=== PATIENT | male | born 1955 | race Caucasian/White ===

== ENCOUNTER 2016-11-11 17:11 | Inpatient (IN) ==
[2016-11-11] MEDS ORDERED: Vancomycin 1,000 MG in D5% in Water 250 ML IV ONE (18:10)
[2016-11-11] MEDS ORDERED: Ondansetron 4 MG/2 ML VIAL IV ONE (18:10)
[2016-11-11] MEDS ORDERED: *HR* Morphine 2 MG/ML SYRINGE IV ONE (18:10)
[2016-11-11] MEDS ORDERED: Piperacillin/Tazobactam 3.375 GM in D5% in Water (Mini-Bag+) 100 ML IVPB ONE (18:10)
--- NOTE | 2016-11-11 18:18 | Emergency Department Note ---
Disposition Clinical Impression: Cellulitis of right lower leg, Septic shock, Hyponatremia Cellulitis Qualifiers: Site of cellulitis: extremity Site of cellulitis of extremity: lower extremity Laterality: right Qualified Code(s): L03.115 - Cellulitis of right lower limb Disposition: Admitted As Inpatient Condition: Fair Referrals: NO,PCP [Non-Partnered Physician] - Forms: ED Satisfaction Letter Time of Disposition: 21:19 General Adult HPI - General Chief complaint: ED Skin/Abscess/Foreign Body Stated complaint: lesions on legs draining Time Seen by Provider: 11/11/16 17:51 Source: patient Limitations: no limitations Nursing Notes Reviewed: Yes Vital Signs Reviewed: Yes - History of Present Illness HPI Narrative: A sent to the emergency department with a chief complaint of right leg infection. States he went to urgent care on Wednesday and was started on . Getting worse. Fever. Painful. Denies injury. Location: right, lower extremity Radiation: non-radiation Pain Severity: severe Pain Scale: 10 Quality: stabbing Consistency: constant Improves with: nothing Worsens with: nothing Treatments Prior to Arrival: other (Bactrim) - Related Data Home Medications Medication Instructions Recorded Confirmed Gabapentin [Gralise] 600 mg PO TID 08/01/15 06/15/16 Metformin [Glucophage] 1,000 mg PO BIDWM 08/01/15 06/15/16 Furosemide [Lasix] 10 mg PO BID 12/17/15 06/15/16 Amitriptyline 11/09/16 Benztropine 11/09/16 Diazepam 11/09/16 GlipiZIDE 11/09/16 HydrOXYzine 11/09/16 Lisinopril 11/09/16 Oxcarbazepine 11/09/16 Potassium Chloride 11/09/16 Simvastatin 11/09/16 11/09/16 Previous Rx's Medication Instructions Recorded Sulfamethoxazole/Trimeth DS 1 each PO BID #20 tablet 11/09/16 [Bactrim DS] Allergies Allergy/AdvReac Type Severity Reaction Status Date / Time aspirin Allergy Rash Verified 10/22/16 20:35 codeine Allergy Rash Verified 10/22/16 20:35 iodine Allergy See Verified 10/22/16 20:35 Comments All systems ED: reviewed and negative except as stated. Constitutional: Reports: fever, chills Cardiovascular: Denies: chest pain Respiratory: Denies: dyspnea Gastrointestinal: Denies: abdominal pain, vomiting, diarrhea Neurological: Denies: headache Past Medical History - Past Medical History Attestation: Yes The following information was validated with the patient. Source: patient Medical history: Reports: non-contributory Surgical history: Reports: appendectomy, cataract, other Psychiatric history: Reports: anxiety, bipolar, depression, PTSD, schizophrenia - Social History Smoking Status: Current every day smoker Smokeless Tobacco Status: No Alcohol use: Reports: none Drug use: Reports: none Physical Exam On examination the patient is disheveled. He is obese. He has dirt caked to the bottom of his right foot. His right leg is diffusely edematous. It is red. There is large pus filled blisters. - General Limitations: no limitations General appearance: alert - Head Head exam: atraumatic, normocephalic - Eye Eye exam: Present: normal appearance - ENT ENT exam: normal oropharynx - Neck Neck exam: Present: normal inspection - Chest Chest inspection: Present: normal inspection - Respiratory Respiratory exam: Present: normal lung sounds bilaterally - Cardiovascular Cardiovascular exam: Present: normal rhythm, tachycardia, normal heart sounds - Abdominal Exam Abdominal exam: Present: soft, Non-Tender - Neurological Exam Neurological exam: Present: alert, oriented X3, CN II-XII intact - Psychiatric Psychiatric exam: Present: normal affect, normal mood - Skin Skin exam: Present: warm, dry Course Course Narrative: Patient with a fever and right leg cellulitis. Sepsis bundle and likely admission. - Reevaluation(s) Reevaluation #1: There is a saline ordered. Concern for fluid overload with the patient's pedal edema and renal insufficiency. Time: 19:33 Reevaluation #2: Stilll await Lactate as lab has still has not drawn lactic acid that was ordered 3 hours ago. Time: 21:14 - Consultations Consultation #1: Nelly accepts. Aware lactate is pending. requests tele Time: 21:19 Vital Signs Temperature 100.6 F H 11/11/16 17:42 Pulse Rate 128 11/11/16 17:42 Respiratory Rate 24 11/11/16 17:42 Blood Pressure 113/70 11/11/16 17:42 O2 Sat by Pulse Oximetry 93 L 11/11/16 17:42 Temperature 100.6 F H 11/11/16 17:42 Pulse Rate 127 11/11/16 19:29 Respiratory Rate 22 11/11/16 19:29 Blood Pressure 128/76 11/11/16 19:29 O2 Sat by Pulse Oximetry 93 L 11/11/16 19:29 Oxygen Delivery Oxygen Delivery Room Air Medical Decision Making - Lab Data Result diagrams: 11/11/16 18:34 11/11/16 18:34 Lab Results 11/11/16 11/11/16 11/11/16 Range/Units 18:34 18:34 18:34 WBC 17.1 H (4.3-11.1) K/mcL RBC 4.00 L (4.19-5.50) M/mcL Hgb 11.6 L (12.9-16.9) g/dL Hct 34.1 L (37.5-50.1) % MCV 85.3 (83.0-100.0) fL MCH 29.0 (28.0-33.3) pg MCHC 34.0 (31.6-35.5) g/dL RDW 14.3 (11.5-14.5) % Plt Count 290 (140-400) K/mcL MPV 10.3 (9.4-12.4) fL Immature Gran % 1.7 (0-4) % Seg Neutrophils % 79.9 % Lymphocytes % 8.9 % Monocytes % 8.8 % Eosinophils % 0.4 % Basophils % 0.3 % Neutrophils # 13.6 H (1.6-8.9) K/mcL Lymphocytes # 1.5 (0.6-4.6) K/mcL Monocytes # 1.5 H (0.0-1.3) K/mcL Eosinophils # 0.1 (0.0-0.6) K/mcL Basophils # 0.1 (0.0-0.2) K/mcL PT 13.0 H (9.4-12.1) Seconds INR 1.2 APTT 27.5 (26.0-36.0) Seconds Sodium 126 L (136-145) mEq/L Potassium 4.0 (3.5-4.5) mEq/L Chloride 89 L (98-109) mEq/L Carbon Dioxide 25 (19-29) mEq/L BUN 37 H (8-26) mg/dL Creatinine 1.93 H (0.72-1.25) mg/dL Est GFR ( Amer) 43 L (> 60) Est GFR (Non-Af Amer) 36 L (> 60) BUN/Creatinine Ratio 19 (6-26) Glucose 372 H (70-99) mg/dL Calculated Osmolality 286 (280-300) Lactic Acid (0.5-2.2) mmol/L Calcium 8.7 (8.6-10.8) mg/dL Phosphorus 1.5 L (2.3-4.7) mg/dL Magnesium 1.4 L (1.6-2.6) mg/dL Total Bilirubin 1.7 H (0.2-1.2) mg/dL Direct Bilirubin 1.2 H (0.0-0.5) mg/dL Indirect Bilirubin 0.5 (0.0-1.2) mg/dL AST 71 H (5-34) Units/L ALT 67 H (0-55) Units/L Alkaline Phosphatase 233 H (38-126) Units/L Troponin I (0-0.03) ng/mL Serum Total Protein 7.3 (6.0-8.3) g/dL Albumin 2.7 L (3.5-5.0) g/dL Globulin 4.6 H (2.4-3.5) g/dL Albumin/Globulin Ratio 0.6 L (1.1-2.2) 11/11/16 11/11/16 Range/Units 18:34 20:04 WBC (4.3-11.1) K/mcL RBC (4.19-5.50) M/mcL Hgb (12.9-16.9) g/dL Hct (37.5-50.1) % MCV (83.0-100.0) fL MCH (28.0-33.3) pg MCHC (31.6-35.5) g/dL RDW (11.5-14.5) % Plt Count (140-400) K/mcL MPV (9.4-12.4) fL Immature Gran % (0-4) % Seg Neutrophils % % Lymphocytes % % Monocytes % % Eosinophils % % Basophils % % Neutrophils # (1.6-8.9) K/mcL Lymphocytes # (0.6-4.6) K/mcL Monocytes # (0.0-1.3) K/mcL Eosinophils # (0.0-0.6) K/mcL Basophils # (0.0-0.2) K/mcL PT (9.4-12.1) Seconds INR APTT (26.0-36.0) Seconds Sodium (136-145) mEq/L Potassium (3.5-4.5) mEq/L Chloride (98-109) mEq/L Carbon Dioxide (19-29) mEq/L BUN (8-26) mg/dL Creatinine (0.72-1.25) mg/dL Est GFR ( Amer) (> 60) Est GFR (Non-Af Amer) (> 60) BUN/Creatinine Ratio (6-26) Glucose (70-99) mg/dL Calculated Osmolality (280-300) Lactic Acid 1.2 (0.5-2.2) mmol/L Calcium (8.6-10.8) mg/dL Phosphorus (2.3-4.7) mg/dL Magnesium (1.6-2.6) mg/dL Total Bilirubin (0.2-1.2) mg/dL Direct Bilirubin (0.0-0.5) mg/dL Indirect Bilirubin (0.0-1.2) mg/dL AST (5-34) Units/L ALT (0-55) Units/L Alkaline Phosphatase (38-126) Units/L Troponin I 0.02 (0-0.03) ng/mL Serum Total Protein (6.0-8.3) g/dL Albumin (3.5-5.0) g/dL Globulin (2.4-3.5) g/dL Albumin/Globulin Ratio (1.1-2.2) - EKG Data EKG #1 EKG attestation: Yes I reviewed and interpreted this EKG. EKG results narrative: Sinus tach at 122. Nonspecific ST changes likely secondary to rate. Unchanged from EKG 2015. Normal axis. Normal ST segments. Normal QRS. Critical Care Time Critical Care Time: Yes Total Critical Care Time: 40 Attestation: Critical care performed: Time is exclusive of separately billable procedures. Time includes: direct patient care, patient reassessment, coordination of patient care, interpretation of data (laboratory data, radiology data, and respiratory data), review of patient's medical records, medical consultation and documentation of patient care. Procedures included in critical care time: Procedures excluded from critical care time:
[2016-11-11 18:46] LABS: Basophils # 0.1 K/mcL (0.0-0.2); Basophils % 0.3 %; Eosinophils # 0.1 K/mcL (0.0-0.6); Eosinophils % 0.4 %; Hematocrit 34.1 % (37.5-50.1); Hemoglobin 11.6 g/dL (12.9-16.9); Immature Granulocytes % 1.7 % (0-4); Lymphocytes # 1.5 K/mcL (0.6-4.6); Lymphocytes % 8.9 %; Mean Corpuscular Volume 85.3 fL (83.0-100.0); Mean Platelet Volume 10.3 fL (9.4-12.4); Monocytes # 1.5 K/mcL (0.0-1.3); Monocytes % 8.8 %; Neutrophils # 13.6 K/mcL (1.6-8.9); Platelet Count 290 K/mcL (140-400); Red Cell Distribution Width 14.3 % (11.5-14.5); Segmented Neutrophils % 79.9 %
[2016-11-11 18:51] LABS: INR 1.2
[2016-11-11 18:54] LABS: Activated Partial Thrombo Time 27.5 Seconds (26.0-36.0)
[2016-11-11 19:00] LABS: Albumin 2.7 g/dL (3.5-5.0); Albumin/Globulin Ratio 0.6 (1.1-2.2); Bilirubin,Direct 1.2 mg/dL (0.0-0.5); Bilirubin,Indirect 0.5 mg/dL (0.0-1.2); Bilirubin,Total 1.7 mg/dL (0.2-1.2); Calcium 8.7 mg/dL (8.6-10.8); Globulin 4.6 g/dL (2.4-3.5); Magnesium 1.4 mg/dL (1.6-2.6); Phosphorous 1.5 mg/dL (2.3-4.7); Total Protein 7.3 g/dL (6.0-8.3)
[2016-11-11] MEDS ORDERED: 0.9 % Sodium Chloride 2,000 ML IV ONE (19:33)
[2016-11-11] MEDS ORDERED: Insulin Human Regular 10 UNIT in 0.9 % Sodium Chloride 10 ML IV ONE (19:34)
[2016-11-11] MEDS ORDERED: Vancomycin 2,000 MG in D5% in Water 250 ML IVPB SCH (23:45)
[2016-11-11] MEDS ORDERED: *HR* Promethazine 25 MG/ML VIAL IVP PRN (23:57)
[2016-11-11] MEDS ORDERED: Acetaminophen 325 MG TABLET PO PRN (23:57)
[2016-11-11] MEDS ORDERED: Benzonatate 100 MG CAPSULE PO PRN (23:57)
[2016-11-11] MEDS ORDERED: *HR* Dextrose 50 % in Water (Syg) 50 ML SYRINGE IVP PRN (23:57)
[2016-11-11] MEDS ORDERED: Naloxone 0.4 MG/ML INJ IVP PRN (23:57)
[2016-11-11] MEDS ORDERED: *HR* HYDROmorphone (PF) 1 MG/ML SYRINGE IVP PRN (23:57)
[2016-11-11] MEDS ORDERED: Pantoprazole 40 MG VIAL IVP STA (23:57)
[2016-11-11] MEDS ORDERED: Dextrose Gel 15 GM PO PRN ×2 (23:57)
[2016-11-11] MEDS ORDERED: D5% in Water 1,000 ML IV PRN (23:57)
[2016-11-12] MEDS ORDERED: Piperacillin/Tazobactam 3.375 GM in D5% in Water (Mini-Bag+) 100 ML IVPB SCH
[2016-11-12] MEDS ORDERED: Magnesium Sulfate 2 GM in D5% in Water 100 ML IVPB ONE (00:03)
--- NOTE | 2016-11-12 00:11 | Internal Med History&Physical ---
Date of Encounter: 11/11/16 Time of Encounter: 23:00 Assessment and Plan (1) Cellulitis of both lower extremities Status: Acute . (2) SIRS due to infectious process with organ dysfunction Status: Acute . (3) Sepsis affecting skin Status: Acute . (4) Morbid obesity with BMI of 40.0-44.9, adult Status: Chronic . (5) Acute and chronic respiratory failure with hypoxia Status: Acute . (6) HEATHER (acute kidney injury) Status: Acute . (7) Hyponatremia with decreased serum osmolality Status: Acute . (8) Acute kidney injury superimposed on CKD Status: Acute . (9) Acute exacerbation of chronic obstructive pulmonary disease (COPD) Status: Acute . 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 Qualifiers: Diabetes mellitus residential insulin use: unspecified manager long term care insulin use status Qualified Code(s): E11.621 - Type 2 diabetes mellitus with foot ulcer; L97.509 - Non-pressure chronic ulcer of other part of unspecified foot with unspecified severity (11) DM type 2 with diabetic peripheral neuropathy Status: Chronic . (12) Physical debility Status: Acute . (13) At risk for abnormal blood glucose level Status: Acute . (14) At risk for accident in home Status: Acute . (15) At risk for acid-base imbalance Status: Acute . (16) At risk for activity intolerance Status: Acute . (17) At risk for acute confusion Status: Acute . (18) At risk for acute ischemic cardiac event Status: Acute . (19) Transaminitis Status: Acute . (20) Hypoalbuminemia due to protein-calorie malnutrition Status: Chronic . (21) Diabetes mellitus with nephropathy Status: Chronic . (22) Urinary tract infection Status: Inactive Qualifiers: Urinary tract infection type: acute cystitis Hematuria presence: without hematuria Qualified Code(s): N30.00 - Acute cystitis without hematuria Internal Medicine - H&P: HPI Chief complaint: Pain, swelling and drainage of legs Admitted From: Emergency Dept Plans for Post Hospital Care: Home History of present illness: Mr. Cormier is a 61 year old mal. Workup and treatments will proceed comprehensively. e patient is admitted with complaints of lesions developing on his legs that are draining associated with swelling and discomfort. Symptoms appear worse in the last 5 days. Right leg affected greater than left. Concerned for infection raised. Radiographic studies confirmed extensive subcutaneous fat stranding and skin thickening compatible with cellulitis versus lymphedema. No drainable fluid collection was seen. No acute osseous abnormalities were seen. The patient is admitted at this time after failure of outpatient therapy with Bactrim for intravenous antibiotic therapy. Workup and treatment will proceed comprehensively. Past Med Surg Social Fam HX - Past Medical History Source: old records reviewed Medical history: arthritis, COPD, diabetes, hyperlipidemia, hypertension, osteoporosis, renal disease, venous stasis, other Psychiatric history: anxiety, bipolar, depression, PTSD, schizophrenia - Past Surgical History Surgical History: appendectomy, cataract, other - Social History Smoking Status: Current every day smoker Smokeless Tobacco Status: No Alcohol use: none Drug use: none Occupational status: unemployed Current living situation: With Family Activity Level: Uses cane/walker, Bed bound, Mostly sedentary Recent Out of Country Travel Within the Last 8 Weeks: No Exposure or Possible Exposure to Illness During Travel: No Internal Medicine - H&P: Meds Metformin [Glucophage] 1,000 mg PO BIDWM 08/01/15 [History] Furosemide [Lasix] 20 mg PO BID 12/17/15 [History] Amitriptyline HCl 100 mg PO HS 11/09/16 [History] Benztropine Mesylate 2 mg PO BID 11/09/16 [History] HydrOXYzine Pamoate 25 mg PO BID PRN 11/09/16 [History] Lisinopril 2.5 mg PO DAILY 11/09/16 [History] Potassium Chloride [K-Tab ER] 10 meq PO BID 11/09/16 [History] Simvastatin [Zocor] 20 mg PO HS 11/09/16 [History] Gabapentin [Neurontin] 1,600 mg PO BID 11/12/16 [History] Gabapentin [Neurontin] 400 mg PO 1300 11/12/16 [History] Pantoprazole Sodium [Protonix] 40 mg PO DAILY 11/12/16 [History] Diazepam [Valium] 5 mg PO TID #30 tablet 11/14/16 [Rx] Metoprolol XL (24 HR) Succ [Toprol Xl] 25 mg PO DAILY #30 tab.er.24h 11/14/16 [ Rx] Oxcarbazepine 300 mg PO BID #60 tablet 11/14/16 [Rx] Diazepam [Valium] 5 mg PO TID #10 tablet 11/24/16 [Rx] OxyCODONE Immed Rel [Roxicodone 5 MG] 10 mg PO Q6HR PRN #10 tablet 11/24/16 [Rx] Allergies aspirin Allergy (Verified 10/22/16 20:35) Rash codeine Allergy (Verified 10/22/16 20:35) Rash iodine Allergy (Verified 10/22/16 20:35) See Comments All Systems PM: A 10-system review of systems was performed and is negative for pertinent findings except as documented above in the HPI. - Constitutional Constitutional: as per HPI, malaise, weakness, no chills, no fever(s), no night sweats - EENT Eyes: as per HPI, no change in vision, no discharge, no pain, no photophobia Ears: as per HPI, no ear discharge, no ear pain, no tinnitus Nose, mouth and throat: as per HPI, no dysphagia, no nasal discharge, no neck pain, no sore throat - Cardiovascular Cardiovascular ROS IM: as per HPI, dyspnea on exertion, edema, no chest pain, no diaphoresis, no dyspnea, no lightheadedness, no palpitations, no syncope - Respiratory Respiratory: as per HPI, cough, dyspnea, dyspnea on exertion, wheezing, chest congestion, no excessive phlegm production - Gastrointestinal Gastrointestinal: as per HPI, no abdominal pain, no diarrhea, no hematemesis, no hematochezia, no melena, no nausea, no vomiting - Genitourinary Genitourinary ROS male: as per HPI - Musculoskeletal Musculoskeletal ROS IM: as per HPI, no numbness, no tingling - Integumentary Integumentary IM: as per HPI, erythema, new lesions, non-healing lesions, rash, skin ulcer, other, no unusual bruising - Neurological Neurological ROS: as per HPI, abnormal gait, frequent falls, weakness, other, no confusion, no convulsions, no focal weakness, no numbness, no tingling, no tremor(s) - Psychiatric Psychiatric: as per HPI - Endocrine Endocrine IM: as per HPI - Hematologic/Lymphatic Hematologic/Lymphatic: as per HPI, no easy bruising - Allergic/Immunologic Allergic/Immunologic: as per HPI - Constitutional Vitals: Temp Pulse Resp BP Pulse Ox 100.6 F H 110 24 108/62 92 L 11/11/16 17:42 11/11/16 22:00 11/11/16 23:05 11/11/16 23:05 11/11/16 22:00 General appearance: Present: disheveled, mild distress, A&O X 3, morbidly obese , answers questions appropriately - Head Head exam: Present: atraumatic, normocephalic - Eye Eye exam: Present: EOMI, PERRL, conjuntiva pink, sclera anicteric Pupils: Present: normal accommodation, PERRL - ENT ENT exam: Present: mucous membranes moist, normal external ear exam, normal oropharynx - Neck Neck exam general surgery: Present: full ROM, supple, trachea midline. Absent: lymphadenopathy - Respiratory Respiratory exam: Present: accessory muscle use, chest wall tenderness, decreased breath sounds, rhonchi, wheezes. Absent: rales - Cardiovascular Cardiovascular exam: Present: distant heart sounds, RRR, +S1, +S2. Absent: diastolic murmur, gallop, rubs, systolic murmur - GI/Abdominal GI/Abdominal exam: Present: normal bowel sounds, soft, no peritoneal signs. Absent: distended, tenderness - Extremities Exam Extremities exam: Present: calf tenderness, full ROM, pedal edema, warm, radial pulses palpable and symetrical. Absent: cyanotic - Neurological Exam Neurological exam: Present: alert, altered, CN II-XII intact, motor sensory deficit, oriented X3, strengths equal and symetr throughout. Absent: pronater drift, facial droop, speech deficit - Psychiatric Psychiatric exam: Present: normal affect, normal mood - Skin Skin exam: Present: dry, erythema, excoriation, intact, rash, vesicles, warm Internal Med - H&P Results - Labs CBC & Chem 7: 11/14/16 06:42 11/14/16 06:42 Labs: Vital Signs Temp Pulse Resp BP Pulse Ox 11/11/16 23:05 24 108/62 11/11/16 22:00 110 20 104/62 92 L 11/11/16 21:30 118 24 94/70 93 L 11/11/16 21:19 92 L 11/11/16 21:00 129 24 101/68 92 L 11/11/16 20:30 132 24 120/76 92 L 11/11/16 19:30 125 20 116/74 92 L 11/11/16 19:29 127 22 128/76 93 L 11/11/16 17:42 100.6 F H 128 24 113/70 93 L Intake and Output 11/11/16 11/11/16 11/12/16 15:59 23:59 07:59 Intake Total 0 / 2260 Balance 226 / 0 Intake: IV Fluids 2260 / 2260 0.9 % Sodium Chloride 2, 2000 / 1999 000 ML @ 3750 mls/hr IV BOLUS ONE Rx#:[id number] HumuLIN R 10 UNIT In 10 / 10 Normal Saline Flush 10 ML @ 1212 mls/hr IV ONCE ONE Rx#:[id number] Vancocin 1,000 MG In 250 / 250 Dextrose 5% 250 ML @ 167 mls/hr IV ONCE ONE Rx#: [id number] Other: Weight 127.006 kg Blood Glucose* 378 Short CBC 11/11/16 Range/Units 18:34 WBC 17.1 H (4.3-11.1) K/mcL Hgb 11.6 L (12.9-16.9) g/dL Hct 34.1 L (37.5-50.1) % Plt Count 290 (140-400) K/mcL Neutrophils # 13.6 H (1.6-8.9) K/mcL BMP 11/11/16 Range/Units 18:34 Sodium 126 L (136-145) mEq/L Potassium 4.0 (3.5-4.5) mEq/L Chloride 89 L (98-109) mEq/L Carbon Dioxide 25 (19-29) mEq/L BUN 37 H (8-26) mg/dL Creatinine 1.93 H (0.72-1.25) mg/dL Glucose 372 H (70-99) mg/dL Calcium 8.7 (8.6-10.8) mg/dL Cardiac Enzymes 11/11/16 Range/Units 18:34 Troponin I 0.02 (0-0.03) ng/mL Liver Function 11/11/16 Range/Units 18:34 Total Bilirubin 1.7 H (0.2-1.2) mg/dL Direct Bilirubin 1.2 H (0.0-0.5) mg/dL AST 71 H (5-34) Units/L ALT 67 H (0-55) Units/L Alkaline Phosphatase 233 H (38-126) Units/L Albumin 2.7 L (3.5-5.0) g/dL Allergies Allergy/AdvReac Type Severity Reaction Status Date / Time aspirin Allergy Rash Verified 10/22/16 20:35 codeine Allergy Rash Verified 10/22/16 20:35 iodine Allergy See Verified 10/22/16 20:35 Comments - Impressions Laboratory Results WBC 17.1 K/mcL (4.3-11.1) H 11/11/16 18:34 RBC 4.00 M/mcL (4.19-5.50) L 11/11/16 18:34 Hgb 11.6 g/dL (12.9-16.9) L 11/11/16 18:34 Hct 34.1 % (37.5-50.1) L 11/11/16 18:34 MCV 85.3 fL (83.0-100.0) 11/11/16 18:34 MCH 29.0 pg (28.0-33.3) 11/11/16 18:34 MCHC 34.0 g/dL (31.6-35.5) 11/11/16 18:34 RDW 14.3 % (11.5-14.5) 11/11/16 18:34 Plt Count 290 K/mcL (140-400) 11/11/16 18:34 MPV 10.3 fL (9.4-12.4) 11/11/16 18:34 Immature Gran % 1.7 % (0-4) 11/11/16 18:34 Seg Neutrophils % 79.9 % 11/11/16 18:34 Lymphocytes % 8.9 % 11/11/16 18:34 Monocytes % 8.8 % 11/11/16 18:34 Eosinophils % 0.4 % 11/11/16 18:34 Basophils % 0.3 % 11/11/16 18:34 Neutrophils # 13.6 K/mcL (1.6-8.9) H 11/11/16 18:34 Lymphocytes # 1.5 K/mcL (0.6-4.6) 11/11/16 18:34 Monocytes # 1.5 K/mcL (0.0-1.3) H 11/11/16 18:34 Eosinophils # 0.1 K/mcL (0.0-0.6) 11/11/16 18:34 Basophils # 0.1 K/mcL (0.0-0.2) 11/11/16 18:34 PT 13.0 Seconds (9.4-12.1) H 11/11/16 18:34 INR 1.2 11/11/16 18:34 APTT 27.5 Seconds (26.0-36.0) 11/11/16 18:34 Sodium 126 mEq/L (136-145) L 11/11/16 18:34 Potassium 4.0 mEq/L (3.5-4.5) 11/11/16 18:34 Chloride 89 mEq/L (98-109) L 11/11/16 18:34 Carbon Dioxide 25 mEq/L (19-29) 11/11/16 18:34 BUN 37 mg/dL (8-26) H 11/11/16 18:34 Creatinine 1.93 mg/dL (0.72-1.25) H 11/11/16 18:34 Est GFR ( Amer) 43 (> 60) L 11/11/16 18:34 Est GFR (Non-Af Amer) 36 (> 60) L 11/11/16 18:34 BUN/Creatinine Ratio 19 (6-26) 11/11/16 18:34 Glucose 372 mg/dL (70-99) H 11/11/16 18:34 Calculated Osmolality 286 (280-300) 11/11/16 18:34 Lactic Acid 1.2 mmol/L (0.5-2.2) 11/11/16 20:04 Calcium 8.7 mg/dL (8.6-10.8) 11/11/16 18:34 Phosphorus 1.5 mg/dL (2.3-4.7) L 11/11/16 18:34 Magnesium 1.4 mg/dL (1.6-2.6) L 11/11/16 18:34 Total Bilirubin 1.7 mg/dL (0.2-1.2) H 11/11/16 18:34 Direct Bilirubin 1.2 mg/dL (0.0-0.5) H 11/11/16 18:34 Indirect Bilirubin 0.5 mg/dL (0.0-1.2) 11/11/16 18:34 AST 71 Units/L (5-34) H 11/11/16 18:34 ALT 67 Units/L (0-55) H 11/11/16 18:34 Alkaline Phosphatase 233 Units/L (38-126) H 11/11/16 18:34 Troponin I 0.02 ng/mL (0-0.03) 11/11/16 18:34 Serum Total Protein 7.3 g/dL (6.0-8.3) 11/11/16 18:34 Albumin 2.7 g/dL (3.5-5.0) L 11/11/16 18:34 Globulin 4.6 g/dL (2.4-3.5) H 11/11/16 18:34 Albumin/Globulin Ratio 0.6 (1.1-2.2) L 11/11/16 18:[address] 11/11/16 18:11 IMPRESSION: 1. Extensive subcutaneous fat stranding and skin thickening compatible with cellulitis versus lymphedema. No drainable fluid collection. 2. No acute osseous abnormality. D/ / Omega Mandel MD / Omega Mandel MD Interpreting Provider: Omega Mandel MD Abnormal lab results WBC 17.1 K/mcL (4.3-11.1) H 11/11/16 18:34 RBC 4.00 M/mcL (4.19-5.50) L 11/11/16 18:34 Hgb 11.6 g/dL (12.9-16.9) L 11/11/16 18:34 Hct 34.1 % (37.5-50.1) L 11/11/16 18:34 Neutrophils # 13.6 K/mcL (1.6-8.9) H 11/11/16 18:34 Monocytes # 1.5 K/mcL (0.0-1.3) H 11/11/16 18:34 PT 13.0 Seconds (9.4-12.1) H 11/11/16 18:34 Sodium 126 mEq/L (136-145) L 11/11/16 18:34 Chloride 89 mEq/L (98-109) L 11/11/16 18:34 BUN 37 mg/dL (8-26) H 11/11/16 18:34 Creatinine 1.93 mg/dL (0.72-1.25) H 11/11/16 18:34 Est GFR ( Amer) 43 (> 60) L 11/11/16 18:34 Est GFR (Non-Af Amer) 36 (> 60) L 11/11/16 18:34 Glucose 372 mg/dL (70-99) H 11/11/16 18:34 Phosphorus 1.5 mg/dL (2.3-4.7) L 11/11/16 18:34 Magnesium 1.4 mg/dL (1.6-2.6) L 11/11/16 18:34 Total Bilirubin 1.7 mg/dL (0.2-1.2) H 11/11/16 18:34 Direct Bilirubin 1.2 mg/dL (0.0-0.5) H 11/11/16 18:34 AST 71 Units/L (5-34) H 11/11/16 18:34 ALT 67 Units/L (0-55) H 11/11/16 18:34 Alkaline Phosphatase 233 Units/L (38-126) H 11/11/16 18:34 Albumin 2.7 g/dL (3.5-5.0) L 11/11/16 18:34 Globulin 4.6 g/dL (2.4-3.5) H 11/11/16 18:34 Albumin/Globulin Ratio 0.6 (1.1-2.2) L 11/11/16 18:34 - Attending Attestation My signature below is to certify that this patient is under my care and that I, or nurse practitioner, or a physician's commercial lending assistant working with me, has a face-to -face encounter with this patient. Allergies aspirin Allergy (Verified 10/22/16 20:35) Rash codeine Allergy (Verified 10/22/16 20:35) Rash iodine Allergy (Verified 10/22/16 20:35) See Comments Home Medications Medication Instructions Recorded Confirmed Type Gabapentin [Gralise] 600 mg PO TID 08/01/15 06/15/16 History Metformin [Glucophage] 1,000 mg PO BIDWM 08/01/15 06/15/16 History Furosemide [Lasix] 10 mg PO BID 12/17/15 06/15/16 History Amitriptyline 11/09/16 History Benztropine 11/09/16 History Diazepam 11/09/16 History GlipiZIDE 11/09/16 History HydrOXYzine 11/09/16 History Lisinopril 11/09/16 History Oxcarbazepine 11/09/16 History Potassium Chloride 11/09/16 History Simvastatin 11/09/16 11/09/16 History I & O 11/09/16 11/10/16 11/11/16 11/12/16 23:59 23:59 23:59 23:59 Intake Total 0 / 0 Balance 226 / 2259 Weight 127.006 kg Intake: IV Fluids 2259 / 2259 0.9 % Sodium Chloride 2, 2000 / 2000 000 ML @ 3750 mls/hr IV BOLUS ONE Rx#:[id number] HumuLIN R 10 UNIT In 10 / 10 Normal Saline Flush 10 ML @ 1212 mls/hr IV ONCE ONE Rx#:[id number] Vancocin 1,000 MG In 250 / 250 Dextrose 5% 250 ML @ 167 mls/hr IV ONCE ONE Rx#: [id number] Other: Blood Glucose* 378 Medications Acetaminophen (Tylenol) 650 mg PO Q6HR PRN PRN Reason: Mild Pain (1-3) Stop: 05/13/17 23:58 Benzonatate (Tessalon) 200 mg PO TID PRN PRN Reason: Cough Stop: 05/13/17 23:58 Dextrose/Water (Dextrose 50% (Syg)) 25 ml IVP AD PRN PRN Reason: Hypoglycemia Stop: 05/13/17 23:58 Docusate Sodium (Colace) 100 mg PO BID COUNT INCLUDES THE [facility] Stop: 05/14/17 09:01 Famotidine (Pepcid) 20 mg IVP Q12HR COUNT INCLUDES THE [facility] Stop: 05/14/17 06:01 Glucagon (Glucagen) 1 mg IM ONCE PRN PRN Reason: Hypoglycemia Stop: 05/13/17 23:58 Glucose (Gluctose) 15 gm PO ONCE PRN PRN Reason: Hypoglycemia Stop: 05/13/17 23:58 Glucose (Gluctose) 30 gm PO ONCE PRN PRN Reason: Hypoglycemia Stop: 05/13/17 23:58 Guaifenesin (Mucinex) 1,200 mg PO BID COUNT INCLUDES THE [facility] Stop: 05/13/17 23:46 Hydromorphone HCl (Dilaudid) 0.5 mg IVP Q4HR PRN PRN Reason: Severe Pain (7-10) Stop: 05/13/17 23:58 Sodium Chloride (0.9 % Sodium Chloride) 1,000 mls @ 125 mls/hr IVC .Q8H ROMMEL Stop: 05/13/17 23:46 Dextrose (Dextrose 5%) 1,000 mls @ 100 mls/hr IV CONT PRN PRN Reason: HYPOGLYCEMIA Stop: 05/13/17 23:58 Magnesium Sulfate 2 gm/ (Dextrose) 104 mls @ 100 mls/hr IVPB ONCE ONE Stop: 11/12/16 01:05 Piperacillin Sod/Tazobactam (Sod 3.375 gm/ Dextrose) 100 mls @ 25 mls/hr IVPB Q8HR ROMMEL PRN Reason: Protocol Stop: 05/14/17 00:01 Potassium Phosphate 44 meq/ (Sodium Chloride) 260 mls @ 40 mls/hr IVPB ONCE ONE Stop: 11/12/16 06:32 Vancomycin HCl 2,000 mg/ (Dextrose) 250 mls @ 167 mls/hr IVPB RPHPROT ROMMEL PRN Reason: Protocol Stop: 05/13/17 23:46 Insulin Detemir (Levemir) 20 unit 0.15 unit/kg (20 unit) SQ HS ROMMEL Stop: 05/13/17 23:46 Insulin Human Lispro (Humalog) 6 units 0.05 units/kg (6 units) SQ TIDWM COUNT INCLUDES THE [facility] Stop: 05/14/17 08:01 Insulin Human Lispro (Humalog) 0 units SQ TIDAC COUNT INCLUDES THE [facility] PRN Reason: Protocol Stop: 05/14/17 07:31 Insulin Human Lispro (Humalog) 0 units SQ HS ROMMEL PRN Reason: Protocol Stop: 05/13/17 23:46 Naloxone HCl (Narcan) 0.4 mg IVP Q2MIN PRN PRN Reason: Opioid Reversal Stop: 05/13/17 23:58 Oxycodone HCl (Roxicodone) 10 mg PO Q6HR PRN PRN Reason: Moderate Pain (4-6) Stop: 05/13/17 23:58 Pantoprazole Sodium (Protonix) 40 mg IVP NOW STA Stop: 11/11/16 23:58 Promethazine HCl (Phenergan) 12.5 mg IVP Q6HR PRN PRN Reason: Nausea And Vomiting Stop: 05/13/17 23:58 Discontinued Medications Acetaminophen (Tylenol) 1,000 mg PO ONCE STA Stop: 11/11/16 18:20 Last Admin: 11/11/16 20:35 Dose: 1,000 mg Re-Assess: [facility] Pain Assessment Document 11/11/16 21:20 VJB (Rec: 11/11/16 21:39 VB [id number]) Patient's Stated Pain Level Pain Intensity 5 Piperacillin Sod/Tazobactam (Sod 3.375 gm/ Dextrose) 100 mls @ 100 mls/hr IVPB ONCE ONE PRN Reason: Protocol Stop: 11/11/16 19:09 Last Admin: 11/11/16 20:45 Dose: 100 mls/hr Vancomycin HCl 1,000 mg/ (Dextrose) 250 mls @ 167 mls/hr IV ONCE ONE PRN Reason: Protocol Stop: 11/11/16 19:39 Last Infusion: 11/11/16 22:17 Dose: 0 mls/hr Sodium Chloride (0.9 % Sodium Chloride) 2,000 mls @ 3,750 mls/hr IV BOLUS ONE Stop: 11/11/16 20:04 Last Infusion: 11/11/16 22:25 Dose: 0 mls/hr Insulin Human Regular 10 unit/ (Sodium Chloride) 10.1 mls @ 1,212 mls/hr IV ONCE ONE Stop: 11/11/16 19:35 Last Infusion: 11/11/16 20:38 Dose: 1,212 mls/hr Morphine Sulfate (Morphine Sulfate) 4 mg IV ONCE ONE Stop: 11/11/16 18:11 Last Admin: 11/11/16 20:43 Dose: 4 mg Re-Assess: [facility] Pain Assessment Document 11/11/16 21:13 VB (Rec: 11/11/16 21:39 VB [id number]) Patient's Stated Pain Level Pain Intensity 5 Ondansetron HCl (Zofran) 4 mg IV ONCE ONE PRN Reason: Protocol Stop: 11/11/16 18:11 Last Admin: 11/11/16 20:40 Dose: 4 mg Nursing Notes 11/11/16 20:04 Pharmacy Note by Pearl Santamaria Patient receives pre-packed medications from [place] pharmacy. He is unaware of home medications, he has pre-pack with him however there are no instructions on what he has. Last ECW is dated 06-12-16 and medications do not match up with pre-packed meds. Pharmacy is currently closed, no outside pharmacy query. Unable to verify medications until morning when pharmacy opens. Initialized on 11/11/16 20:04 - END OF NOTE 11/11/16 18:15 Transport Report by Dariel Coates Date: 11/11/16 Transport Method: Portable aspirin Allergy (Verified 10/22/16 20:35) Rash codeine Allergy (Verified 10/22/16 20:35) Rash iodine Allergy (Verified 10/22/16 20:35) See Comments Resuscitation Status 11/11/16 18:04 ECG 12 lead ECG [ECG] Stat Mode Of Transportation: Portable Reason For Exam: swelling Exam Performed At:: [facility] 11/11/16 18:11 CT lower leg RT wo con [CT] Stat Mode Of Transportation: Portable Reason For Exam: right leg infection Order Doctor: Rachel Lynch Exam Performed At:: [facility] Allergic to Contrast: No Oxygen: Mental Status: Fall Risk: Isolation: Nurse Required for Transport: No ___ Yes Limb Restrictions: No ___ Yes Behavioral issue/Risk for Elopement: No ___ Yes Telemetry Room Notification: Destination: MRI XRAY STRESS ULTRASOUND CT DIALYSIS ENDO OTHER: Depart Time: Nurse: Transporter: Arrive Time: Received by: ___ Return Time: Nurse: Transporter: ] Initialized on 11/11/16 18:15 - END OF NOTE Orders 11/11/16 18:04 12 lead ECG assessment [RC] NOW Cardiac monitoring [RC] .ONCE IV insertion - peripheral [RC] NOW Insert second IV line [RC] .ONCE Supplemental oxygen titration [RC] .ONCE Physician Instructions: Vital Signs Assessment [RC] PROTOCOL Urinalysis Reflex Cult & Micro [URIN] Stat Comment: Specimen: Pre-Collection Label ECG 12 lead ECG [ECG] Stat Mode Of Transportation: Portable Reason For Exam: swelling Exam Performed At:: [facility] 11/11/16 18:10 Morphine [Morphine Sulfate] 4 mg IV ONCE ONE Ondansetron [Zofran] 4 mg IV ONCE ONE Piperacillin/Tazobactam [Zosyn] 3.375 gm D5% in Water (Mini-Bag+) [Dextrose 5 % (Minibag+) 100 ML] 100 ml IVPB ONCE Vancomycin [Vancocin] 1,000 mg D5% in Water [Dextrose 5%] 250 ml IV ONCE 11/11/16 18:11 CT lower leg RT wo con [CT] Stat Mode Of Transportation: Portable Reason For Exam: right leg infection Order Doctor: Rachel Lynch Exam Performed At:: [facility] Allergic to Contrast: No 11/11/16 18:15 Culture,Wound [RM] Stat Comment: right leg BERRY Source: Chest Specimen: Send someone from the department to collect Specimen Description: 11/11/16 18:19 Acetaminophen [Tylenol] 1,000 mg PO ONCE STA 11/11/16 18:34 Activated Partial Thrombo Time [COAG] Stat Comment: Specimen: Send someone from the department to collect Basic Metabolic Panel Stat Comment: Specimen: Send someone from the department to collect Complete Blood Count [HEME] Stat Comment: Specimen: Send someone from the department to collect Hepatic Panel Stat Comment: Specimen: Send someone from the department to collect Magnesium Stat Comment: Specimen: Send someone from the department to collect Phosphorous Stat Comment: Specimen: Send someone from the department to collect Prothrombin Time INR [COAG] Stat Comment: Specimen: Send someone from the department to collect Troponin I Stat Comment: Specimen: Send someone from the department to collect 11/11/16 18:39 Culture,Blood [BC] Stat Comment: Draw from CVC. BERRY Source: Peripheral Venipuncture Quantity: 1 Specimen: Send someone from the department to collect Specimen Description: 11/11/16 19:33 0.9 % Sodium Chloride 2,000 ml IV BOLUS 11/11/16 19:34 Insulin Human Regular [HumuLIN R] 10 unit 0.9 % Sodium Chloride [Normal Saline Flush] 10 ml IV ONCE 11/11/16 19:[address] Stat Comment: Reason for Visit: Right leg cellulitis with septic shock 11/11/16 20:04 Culture,Blood,Additional [BC] Stat Comment: BERRY Source: Peripheral Venipuncture Quantity: 1 Specimen: Send someone from the department to collect Specimen Description: Lactic Acid ([facility] Only) Timed Comment: Specimen: Send someone from the department to collect 11/11/16 23:45 0.9 % Sodium Chloride 1,000 ml IVC 125 mls/hr GuaiFENesin ER [Mucinex] 1,200 mg PO BID Insulin DETEMIR [Levemir] 20 unit SQ HS Insulin LISPRO [HumaLOG] See Protocol SQ HS Vancomycin [Vancocin (wt based)] 2,000 mg D5% in Water [Dextrose 5%] 250 ml IVPB RPHPROT 11/11/16 23:57 Glucose, blood poc measurement [RC] ACHS Glucose, blood poc measurement [RC] ACHS Hypoglycemia Treatment Orders [RC] .once Notify provider [RC] once Physician Instructions: Peripheral IV [RC] CONT Placement to Observation Routine Physician Instructions: Reason for Visit: LE cellulitis, pain, swelling, wound drainage Is VTE Prophylaxis Indicated?: Yes Vital Signs Assessment [RC] Q4H Consult to [employer] Administrator [CONS] Routine Comment: @ 100 MLS/HR [prn Hypoglycemia] D5% in Water [Dextrose 5%] 1,000 ml IV CONT Acetaminophen [Tylenol] 650 mg PO Q6HR PRN Benzonatate [Tessalon] 200 mg PO TID PRN Dextrose 50 % in Water (Syg) [Dextrose 50% (Syg)] 25 ml IVP AD PRN Dextrose Gel [Gluctose] 15 gm PO ONCE PRN Dextrose Gel [Gluctose] 30 gm PO ONCE PRN Glucagon, Human Recombinant [GlucaGen] 1 mg IM ONCE PRN HYDROmorphone (PF) [Dilaudid] 0.5 mg IVP Q4HR PRN Naloxone [Narcan] 0.4 mg IVP Q2MIN PRN OxyCODONE Immed Rel [Roxicodone] 10 mg PO Q6HR PRN Pantoprazole [Protonix] 40 mg IVP NOW STA Promethazine [Phenergan] 12.5 mg IVP Q6HR PRN Resuscitation Status: Active [RES] Routine Resuscitation Status: Full Code Comment: 11/11/16 23:58 Bed rest [RC] .CONT Physician Instructions: Bed rest w/bedside commode [RC] .PRN Cardiac Monitoring Med/Surg [RC] .CONT Telemetry Reason: ACS/CP Continuous pulse oximetry [RC] CONT Comment: Measure intake and output [RC] QSHIFT Measure weight [RC] DAILY 11/11/16 23:59 RT has an order or consult [RC] NOW 11/11/16 Breakfast Diabetic Diet Diet Modifications: 11/12/16 00:00 Piperacillin/Tazobactam [Zosyn] 3.375 gm D5% in Water (Mini-Bag+) [Dextrose 5 % (Minibag+) 100 ML] 100 ml IVPB Q8HR 11/12/16 00:01 Hgb A1C Routine Specimen: Send someone from the department to collect Comment: 11/12/16 00:03 Magnesium Sulfate 2 gm D5% in Water [Dextrose 5%] 100 ml IVPB ONCE Potassium Phosphate 44 meq 0.9 % Sodium Chloride 250 ml IVPB ONCE 11/12/16 00:15 Troponin I Q6H Specimen: Send someone from the department to collect Comment: 11/12/16 04:00 Activated Partial Thrombo Time [COAG] AM 0400 Specimen: Send someone from the department to collect Comment: B-Type Natriuretic Peptide AM 0400 Specimen: Send someone from the department to collect Comment: Complete Blood Count [HEME] AM 0400 Specimen: Send someone from the department to collect Comment: Comprehensive Metabolic Panel AM 0400 Specimen: Send someone from the department to collect Comment: Lipid Panel AM 0400 Specimen: Send someone from the department to collect Comment: Magnesium AM 0400 Specimen: Send someone from the department to collect Comment: Phosphorous AM 0400 Specimen: Send someone from the department to collect Comment: Prothrombin Time INR [COAG] AM 0400 Specimen: Send someone from the department to collect Comment: Urinalysis reflex Microscopic [URIN] AM 0400 Specimen: Send someone from the department to collect Comment: 11/12/16 06:00 Famotidine [Pepcid] 20 mg IVP Q12HR 11/12/16 06:15 Troponin I Q6H Specimen: Send someone from the department to collect Comment: 11/12/16 07:30 Insulin LISPRO [HumaLOG] See Protocol SQ TIDAC 11/12/16 08:00 Insulin LISPRO [HumaLOG] 6 units SQ TIDWM 11/12/16 09:00 Docusate [Colace] 100 mg PO BID 11/12/16 12:15 Troponin I Q6H Specimen: Send someone from the department to collect Comment: Patient Problems HEATHER (acute kidney injury) (Acute) Acute and chronic respiratory failure with hypoxia (Acute) Cellulitis (Acute) Cellulitis of both lower extremities (Acute) Cellulitis of right lower leg (Acute) Hyponatremia (Acute) Morbid obesity with BMI of 40.0-44.9, adult (Acute) SIRS due to infectious process with organ dysfunction (Acute) Sepsis affecting skin (Acute) Septic shock (Acute) Vital Signs Temp Pulse Resp BP Pulse Ox 11/11/16 23:05 24 108/62 11/11/16 22:00 110 20 104/62 92 L 11/11/16 21:30 118 24 94/70 93 L 11/11/16 21:19 92 L 11/11/16 21:00 129 24 101/68 92 L 11/11/16 20:30 132 24 120/76 92 L 11/11/16 19:30 125 20 116/74 92 L 11/11/16 19:29 127 22 128/76 93 L 11/11/16 17:42 100.6 F H 128 24 113/70 93 L Laboratory Results 11/11/16 11/11/16 11/11/16 Range/Units 18:34 18:34 18:34 WBC 17.1 H (4.3-11.1) K/mcL RBC 4.00 L (4.19-5.50) M/mcL Hgb 11.6 L (12.9-16.9) g/dL Hct 34.1 L (37.5-50.1) % MCV 85.3 (83.0-100.0) fL MCH 29.0 (28.0-33.3) pg MCHC 34.0 (31.6-35.5) g/dL RDW 14.3 (11.5-14.5) % Plt Count 290 (140-400) K/mcL MPV 10.3 (9.4-12.4) fL Immature Gran % 1.7 (0-4) % Seg Neutrophils % 79.9 % Lymphocytes % 8.9 % Monocytes % 8.8 % Eosinophils % 0.4 % Basophils % 0.3 % Neutrophils # 13.6 H (1.6-8.9) K/mcL Lymphocytes # 1.5 (0.6-4.6) K/mcL Monocytes # 1.5 H (0.0-1.3) K/mcL Eosinophils # 0.1 (0.0-0.6) K/mcL Basophils # 0.1 (0.0-0.2) K/mcL PT 13.0 H (9.4-12.1) Seconds INR 1.2 APTT 27.5 (26.0-36.0) Seconds Sodium 126 L (136-145) mEq/L Potassium 4.0 (3.5-4.5) mEq/L Chloride 89 L (98-109) mEq/L Carbon Dioxide 25 (19-29) mEq/L BUN 37 H (8-26) mg/dL Creatinine 1.93 H (0.72-1.25) mg/dL Est GFR ( Amer) 43 L (> 60) Est GFR (Non-Af Amer) 36 L (> 60) BUN/Creatinine Ratio 19 (6-26) Glucose 372 H (70-99) mg/dL Calculated Osmolality 286 (280-300) Lactic Acid (0.5-2.2) mmol/L Calcium 8.7 (8.6-10.8) mg/dL Phosphorus 1.5 L (2.3-4.7) mg/dL Magnesium 1.4 L (1.6-2.6) mg/dL Total Bilirubin 1.7 H (0.2-1.2) mg/dL Direct Bilirubin 1.2 H (0.0-0.5) mg/dL Indirect Bilirubin 0.5 (0.0-1.2) mg/dL AST 71 H (5-34) Units/L ALT 67 H (0-55) Units/L Alkaline Phosphatase 233 H (38-126) Units/L Troponin I (0-0.03) ng/mL Serum Total Protein 7.3 (6.0-8.3) g/dL Albumin 2.7 L (3.5-5.0) g/dL Globulin 4.6 H (2.4-3.5) g/dL Albumin/Globulin Ratio 0.6 L (1.1-2.2) 11/11/16 11/11/16 Range/Units 18:34 20:04 WBC (4.3-11.1) K/mcL RBC (4.19-5.50) M/mcL Hgb (12.9-16.9) g/dL Hct (37.5-50.1) % MCV (83.0-100.0) fL MCH (28.0-33.3) pg MCHC (31.6-35.5) g/dL RDW (11.5-14.5) % Plt Count (140-400) K/mcL MPV (9.4-12.4) fL Immature Gran % (0-4) % Seg Neutrophils % % Lymphocytes % % Monocytes % % Eosinophils % % Basophils % % Neutrophils # (1.6-8.9) K/mcL Lymphocytes # (0.6-4.6) K/mcL Monocytes # (0.0-1.3) K/mcL Eosinophils # (0.0-0.6) K/mcL Basophils # (0.0-0.2) K/mcL PT (9.4-12.1) Seconds INR APTT (26.0-36.0) Seconds Sodium (136-145) mEq/L Potassium (3.5-4.5) mEq/L Chloride (98-109) mEq/L Carbon Dioxide (19-29) mEq/L BUN (8-26) mg/dL Creatinine (0.72-1.25) mg/dL Est GFR ( Amer) (> 60) Est GFR (Non-Af Amer) (> 60) BUN/Creatinine Ratio (6-26) Glucose (70-99) mg/dL Calculated Osmolality (280-300) Lactic Acid 1.2 (0.5-2.2) mmol/L Calcium (8.6-10.8) mg/dL Phosphorus (2.3-4.7) mg/dL Magnesium (1.6-2.6) mg/dL Total Bilirubin (0.2-1.2) mg/dL Direct Bilirubin (0.0-0.5) mg/dL Indirect Bilirubin (0.0-1.2) mg/dL AST (5-34) Units/L ALT (0-55) Units/L Alkaline Phosphatase (38-126) Units/L Troponin I 0.02 (0-0.03) ng/mL Serum Total Protein (6.0-8.3) g/dL Albumin (3.5-5.0) g/dL Globulin (2.4-3.5) g/dL Albumin/Globulin Ratio (1.1-2.2) Assessments/Treatments 12 lead ECG assessment Start: 11/11/16 18: 04 Freq: NOW Status: Complete Document 11/11/16 19:13 MCS (Rec: 11/11/16 19:13 MCS [id number]) EKG Time EKG Completed 18:13 EKG performed by Ronny MOFFETT shown to and signed by Dr. Lynch Cardiac monitoring Start: 11/11/16 18: 04 Freq: .ONCE Status: Complete Document 11/11/16 19:28 [facility] (Rec: 11/11/16 19:28 [facility] [id number]) Cardiac Monitoring Heart Rate 127 Monitoring Method Tube Pusher Number ED 11 Discontinue Saline Lock Start: 11/11/16 21: 20 Freq: Status: Active Document 11/11/16 21:21 [id number] (Rec: 11/11/16 21:21 VJB [id number]) Discontinue Saline Lock Right Antecubital Date IV Line Discontinued 11/11/16 Time IV Line Discontinued 21:21 IV Line Removal Patient Tolerance Tolerated Well Sterile Dressing Applied IV removed/ tip intact Bleeding Controlled Education Completed Expresses Understanding Document 11/11/16 21:24 VJB (Rec: 11/11/16 21:24 VJB [id number]) Discontinue Saline Lock Left Wrist Date IV Line Discontinued 11/11/16 Time IV Line Discontinued 21:24 IV Line Removal Patient Tolerance Tolerated Well Sterile Dressing Applied IV removed/ tip intact Bleeding Controlled Education Completed Expresses Understanding ED Discharge Assessment Start: 11/11/16 17: 45 Freq: Status: Complete Document 11/11/16 23:05 VJB (Rec: 11/11/16 23:06 VJB [id number]) ED Discharge Assessment ED Discharge Disposition Admitted Med Rec/Patient Pharmacy Completed? Yes Admitted to 2NE Bed assigned [id number] Transported by land survey technician Transported with monitor oxygen IV pulse oximetry continuing medication Report given to Nurse Care transferred to (name/credentials) MICHAEL Connelly Information relayed patient's care treatments medications given condition recent/anticipated changes Clinical Documentation Summary Provided Yes Pain Scale 4 Pain Scale Used Standard (1-10) Blood Pressure 108/62 Heart rate 109 Respiratory Rate 24 Oxygen Delivery Nasal Cannula Oxygen Saturation 93 Comment 2LPM/NC Critical Care Minutes 0 ED Pain Assessment Start: 11/11/16 17: 45 Freq: Status: Complete Document 11/11/16 21:21 VJB (Rec: 11/11/16 21:22 VJB [id number]) Pain Assessment Pain Present Reports Pain Right Lower Extremity Pain Description Ache Pressure Sharp Acute Intensity 10 Scale Used Numeric (1 - 10) Frequency Constant ED Skin/Abscess/Foreign Body Assessment Start: 11/11/16 17: 45 Freq: Status: Complete Document 11/11/16 18:52 TL (Rec: 11/11/16 18:57 [facility] [id number]) Skin/Abscess/Foreign Body Sepsis Infection Criteria Present suspected infection Sepsis SIRS Criteria RR > 20 rpm HR > 90 bpm Sepsis Organ Dysfunction Criteria none Present Sepsis Screen Sepsis Risk Sepsis Action Taken provider notified Sepsis Name of Provider Notified Rachel Redding See Symptoms/Complaint Lesion Onset Wednesday Improves With Nothing Worsens With Nothing Associated Symptoms Fever Nausea Vomiting Right Leg Skin Problem Blister Level Of Consciousness Awake Alert Follows Commands Patient Orientation Person Place Name Age Date of Skin Temperature Hot Skin Moisture Moist Skin Turgor Edematous Respiratory Depth Normal Respiratory Effort Spontaneous Non-Labored Respiratory Pattern Regular Right Lower Extremity Pain Description Burning Intensity 10 Right Leg Wound Type Blister Right Lower Extremity Edema Type Non-Pitting Nausea/Vomiting Presence Nauseated ED Comment Patient reports he has had redness, swelling, and pus filled blisters to his RLE since Wednesday. Reports he went to urgent care on Wednesday and was given PO bactrim without improvement of symptoms. Patient reports fevers, nausea , and vomiting. IV catheter insertion - peripheral Start: 11/11/16 18: 04 Freq: NOW Status: Complete Document 11/11/16 19:28 TL (Rec: 11/11/16 19:28 [id number] Insert second IV line Start: 11/11/16 18: 04 Freq: .ONCE Status: Complete Document 11/11/16 21:21 VJB (Rec: 11/11/16 21:21 VJB [id number]) Patient Rounding Start: 11/11/16 17: 45 Freq: Q30M Status: Active Document 11/11/16 18:52 TLH (Rec: 11/11/16 18:57 [id number]) Patient Rounding Safety Call Light Within Reach Bed Position Low Bed Brake On Side Rails Up X1 Are the Floors Free From Trip Hazards? Yes Is the Room Free From Clutter? Yes Rounding Completed? Yes Patient Rounding Updated patient/family on Plan of Care Checked for Patient Positioning Checked Patient Pain Level Patient Awake Document 11/11/16 19:28 TLH (Rec: 11/11/16 19:28 [id number]) Patient Rounding Safety Call Light Within Reach Bed Position Low Bed Brake On Side Rails Up X2 Are the Floors Free From Trip Hazards? Yes Is the Room Free From Clutter? Yes Rounding Completed? Yes Patient Rounding Updated patient/family on Plan of Care Checked for Patient Positioning Patient Awake Document 11/11/16 19:30 VJB (Rec: 11/11/16 21:17 VJB [id number]) Patient Rounding Safety Call Light Within Reach Bed Position Low Bed Brake On Side Rails Up X2 Are the Floors Free From Trip Hazards? Yes Is the Room Free From Clutter? Yes Rounding Completed? Yes Patient Rounding Updated patient/family on Plan of Care Checked for Patient Positioning Patient Awake Document 11/11/16 20:00 VJB (Rec: 11/11/16 21:17 VB [id number]) Patient Rounding Safety Call Light Within Reach Bed Position Low Bed Brake On Side Rails Up X2 Are the Floors Free From Trip Hazards? Yes Is the Room Free From Clutter? Yes Rounding Completed? Yes Patient Rounding Updated patient/family on Plan of Care Checked for Patient Positioning Patient Awake Document 11/11/16 20:30 VJB (Rec: 11/11/16 21:17 VJB [id number]) Patient Rounding Safety Call Light Within Reach Bed Position Low Bed Brake On Side Rails Up X2 Are the Floors Free From Trip Hazards? Yes Is the Room Free From Clutter? Yes Rounding Completed? Yes Patient Rounding Updated patient/family on Plan of Care Checked for Patient Positioning Patient Awake Document 11/11/16 21:00 VJB (Rec: 11/11/16 21:18 VJB [id number]) Patient Rounding Safety Call Light Within Reach Bed Position Low Bed Brake On Side Rails Up X2 Are the Floors Free From Trip Hazards? Yes Is the Room Free From Clutter? Yes Rounding Completed? Yes Patient Rounding Updated patient/family on Plan of Care Checked for Patient Positioning Patient Awake Document 11/11/16 21:19 VJB (Rec: 11/11/16 21:19 VB [id number]) Patient Rounding Safety Call Light Within Reach Bed Position Low Bed Brake On Side Rails Up X2 Are the Floors Free From Trip Hazards? Yes Is the Room Free From Clutter? Yes Rounding Completed? Yes Patient Rounding Updated patient/family on Plan of Care Checked for Patient Positioning Patient Awake Document 11/11/16 21:43 VJB (Rec: 11/11/16 21:43 VB [id number]) Patient Rounding Safety Call Light Within Reach Bed Position Low Bed Brake On Side Rails Up X2 Are the Floors Free From Trip Hazards? Yes Is the Room Free From Clutter? Yes Rounding Completed? Yes Patient Rounding Updated patient/family on Plan of Care Checked for Patient Positioning Patient Awake Document 11/11/16 22:18 VJB (Rec: 11/11/16 22:18 VJB [id number]) Patient Rounding Safety Call Light Within Reach Bed Position Low Bed Brake On Side Rails Up X2 Are the Floors Free From Trip Hazards? Yes Is the Room Free From Clutter? Yes Rounding Completed? Yes Patient Rounding Updated patient/family on Plan of Care Checked for Patient Positioning Patient Awake Document 11/11/16 23:00 VJB (Rec: 11/11/16 23:04 VJB [id number]) Patient Rounding Safety Call Light Within Reach Bed Position Low Bed Brake On Side Rails Up X2 Are the Floors Free From Trip Hazards? Yes Is the Room Free From Clutter? Yes Rounding Completed? Yes Patient Rounding Updated patient/family on Plan of Care Checked for Patient Positioning Patient Awake Saline lock insertion/management Start: 11/11/16 19: 22 Freq: Status: Complete Document 11/11/16 19:22 [facility] (Rec: 11/11/16 19:22 [id number]) IV Insertion/Site Assessment IV Attempt 2 Successful Unsuccessful Document 11/11/16 19:28 TL (Rec: 11/11/16 19:29 [id number]) IV Insertion/Site Assessment IV Attempt 2 Successful Successful Comment Inserted per Micky Dowell RN Right Antecubital IV Established COPY SUPERVISOR No Reason for IV Insertion Provide Access for IV Medication(s) IV Catheter Type Peripheral IV Gauge (gauge) 18 Site Observation Patent Dressing Applied Transparent Dressing Dry/Intact Patient Tolerance Tolerated Well Document 11/11/16 21:00 VJB (Rec: 11/11/16 21:23 VJB [id number]) IV Insertion/Site Assessment IV Attempt 2 Successful Successful Blood drawn and sent to Lab No Left Wrist Date of Insertion 11/11/16 Time of Insertion 21:00 Reason for IV Insertion Replace Lost Fluids Provide Access for IV Medication(s) Provide Access for Emergency IV Catheter Type Peripheral IV Gauge (gauge) 20 Site Observation Patent Dressing Applied Transparent Dressing Patient Tolerance Tolerated Well Left Forearm IV Established COPY SUPERVISOR No Date of Insertion 11/11/16 Time of Insertion 21:23 Reason for IV Insertion Replace Lost Fluids Provide Access for IV Medication(s) Provide Access for Emergency IV Catheter Type Peripheral IV Gauge (gauge) 18 Site Observation Patent Dressing Applied Transparent Dressing Patient Tolerance Tolerated Well Supplemental oxygen titration Start: 11/11/16 18: 04 Freq: .ONCE Status: Complete Document 11/11/16 21:19 VJB (Rec: 11/11/16 21:19 VJB [id number]) Oxygen Adminstration Oxygen Saturation (95-100) 92 Oxygen Delivery Method Nasal Cannula Flow Rate 2 Triage Start: 11/11/16 17: 42 Freq: Status: Complete Document 11/11/16 17:42 [id number] (Rec: 11/11/16 17:45 [id number]) Triage Chief Complaint triage ED Skin/Abscess/Foreign Body Patient Stated Complaint lesions on legs/fever/chills WOOD 2 Onset (ago) day(s) Description of Symptoms Pt states he was diagnosed with a UTI Wednesday last week and that on Wednesday he began to have fever, chills, and malaise. General Appearance alert Work Related Injury? No Mode of arrival wheelchair Source patient Limitations no limitations Temperature (97.6 F-99.6 F) 100.6 F Temperature Source Oral Pulse Rate 128 Respiratory Rate 24 Blood Pressure 113/70 O2 Sat by Pulse Oximetry (95-100) 93 Oxygen Delivery Room Air Height 1.75 m Weight 127.006 kg Weight Measurement Method Stated by Patient Pain Scale 10 Pain Scale Used Standard (1-10) Medical history non-contributory Male surgical history herniorrhaphy Additional surgical history PMH undescended testicle, hernia repair Psychiatric history anxiety bipolar depression PTSD schizophrenia Smoking Status Current every day smoker Smokeless Tobacco Status No Alcohol Use none Drug Use none Patient resides with/at Non-Family Member Safety Concerns Feels Safe At This Time Do you currently feel hopless, have No thoughts of self harm, or thoughts of harming others History of fall in last 14 days? No Influenza vaccine up to date Yes Pneumonia vaccine up to date No Tetanus UTD unsure Coma Scale Eye Opening Spontaneous Coma Scale Motor Response Obeys Commands Coma Scale Verbal Response Oriented Coma Scale Total 15 Vital Signs Assessment Start: 11/11/16 18: 04 Freq: PROTOCOL Status: Complete Document 11/11/16 19:29 [facility] (Rec: 11/11/16 19:31 [facility] [id number]) ED Vital Signs Pain Reported Pain Reported Pain Scale 10 Pain Scale Used Standard (1-10) Blood Pressure 128/76 Blood Pressure Location Left Arm Source Automatic Cuff Pulse Rate 127 Respiratory Rate 22 Effort Spontaneous Non-Labored Pulse Oximetry (95-100) 93 Oxygen Delivery Room Air Document 11/11/16 19:30 VJB (Rec: 11/11/16 21:26 VB [id number]) ED Vital Signs Pain Reported Pain Reported Pain Scale 10 Pain Scale Used Standard (1-10) Blood Pressure 116/74 Blood Pressure Location Left Arm Pulse Rate 125 Rhythm Regular Strength Normal Respiratory Rate 20 Depth Normal Effort Short of Breath Pattern Regular Pulse Oximetry (95-100) 92 Oxygen Delivery Nasal Cannula Oxygen Flow Rate (LPM) 2 Document 11/11/16 20:30 VJB (Rec: 11/11/16 21:27 VB [id number]) ED Vital Signs Pain Reported Pain Reported Pain Scale 10 Pain Scale Used Standard (1-10) Blood Pressure 120/76 Blood Pressure Location Left Arm Source Automatic Cuff Pulse Rate 132 Rhythm Regular Strength Normal Respiratory Rate 24 Depth Normal Effort Labored Short of Breath Pattern Regular Pulse Oximetry (95-100) 92 Oxygen Delivery Nasal Cannula Oxygen Flow Rate (LPM) 2 Document 11/11/16 21:00 VJB (Rec: 11/11/16 21:27 VB [id number]) ED Vital Signs Pain Reported Pain Reported Pain Scale 10 Pain Scale Used Standard (1-10) Blood Pressure 101/68 Blood Pressure Location Right Arm Source Automatic Cuff Position Supine Pulse Rate 129 Rhythm Regular Strength Normal Respiratory Rate 24 Depth Normal Effort Labored Short of Breath Pattern Regular Pulse Oximetry (95-100) 92 Oxygen Delivery Nasal Cannula Oxygen Flow Rate (LPM) 2 Document 11/11/16 21:30 VJB (Rec: 11/11/16 21:44 VB [id number]) ED Vital Signs Pain Reported Pain Reported Pain Scale 5 Pain Scale Used Standard (1-10) Blood Pressure 94/70 Blood Pressure Location Right Arm Source Automatic Cuff Position Supine Pulse Rate 118 Rhythm Regular Strength Normal Respiratory Rate 24 Depth Normal Effort Labored Short of Breath Pattern Regular Pulse Oximetry (95-100) 93 Oxygen Delivery Nasal Cannula Oxygen Flow Rate (LPM) 2 Document 11/11/16 22:00 VJB (Rec: 11/11/16 22:19 VB [id number]) ED Vital Signs Pain Reported Pain Reported Pain Scale 3 Pain Scale Used Standard (1-10) Blood Pressure 104/62 Blood Pressure Location Right Arm Source Automatic Cuff Position Supine Pulse Rate 110 Rhythm Regular Strength Normal Respiratory Rate 20 Depth Normal Effort Normal for Patient Pulse Oximetry (95-100) 92 Oxygen Delivery Nasal Cannula Oxygen Flow Rate (LPM) 2 Discharge Information ED Provider: Rachel Lynch Status: Departed Time Seen by Provider: 11/11/16 17:51 Condition: Fair Triaged At: 11/11/16 17:42 Emergency Discharge Date/Time: 11/11/16 23:15 Emergency Discharge Disposition: Admitted As Inpatient Clinical Impression Cellulitis Cellulitis of right lower leg Septic shock Hyponatremia Emergency Discharge Comment: [id number] Admit Intervention Last Done ED Skin/Abscess/Foreign Body Assessment 11/11/16 18:52 Query Result Sepsis Infection Criteria Present suspected infection Sepsis SIRS Criteria RR > 20 rpm HR > 90 bpm Sepsis Organ Dysfunction Criteria none Present Sepsis Screen Sepsis Risk Sepsis Action Taken provider notified Sepsis Name of Provider Notified Rachel Redding See Skin/Abscess/FB Symptoms/Complaint Lesion Skin/Abscess/FB Onset Wednesday Skin/Abscess/FB Improves With Nothing Skin/Abscess/FB Worsens With Nothing Skin/Abscess/FB Associated Symptoms Fever Nausea Vomiting Right Leg -Skin Problem Blister Level Of Consciousness Awake Alert Follows Commands Patient Orientation Person Place Name Age Date of Skin Temperature Hot Skin Moisture Moist Skin Turgor Edematous Respiratory Depth Normal Respiratory Effort Spontaneous Non-Labored Respiratory Pattern Regular Right Lower Extremity -Pain Description Burning -Pain Intensity 10 Right Leg -Wound Type Blister Right Lower Extremity -Edema Type Non-Pitting Nausea/Vomiting Presence Nauseated ED Comment Patient reports he has had redness, swelling, and pus filled blisters to his RLE since Wednesday. Reports he went to urgent care on Wednesday and was given PO bactrim without improvement of symptoms. Patient reports fevers, nausea , and vomiting. ED Discharge Assessment 11/11/16 23:05 Query Result ED Discharge Disposition Admitted Med Rec/Patient Phamracy completed? Yes ED Admit to 2NE Bed assigned [id number] Transported by land survey technician Transported with monitor oxygen IV pulse oximetry continuing medication Report given to Nurse Care transferred to MICHAEL Connelly Information relayed patient's care treatments medications given condition recent/anticipated change Clinical Documentation Summary Provided Yes Severity scale (1-10) 4 Pain Scale Used Standard (1-10) Blood Pressure 108/62 Heart rate 109 Respiratory Rate 24 Oxygen Delivery Nasal Cannula Pulse Oximetry Reading 93 Comment 2LPM/NC Critical Care Minutes 0 Observation Discharge Date/Time: Observation Discharge Disposition: Observation Discharge Comment: Instructions: Stand-Alone Forms: Prescriptions: Visit Report - Forms: - Referrals: Radiology Results Lower Extremity CT 11/11/16 18:11
[2016-11-12] MEDS: Potassium Phosphate 44 MEQ in 0.9 % Sodium Chloride 250 ML IVPB ONE ×2 (00:50→03:10)
[2016-11-12] MEDS: Insulin DETEMIR 100 UNIT/ML X5UNITS SQ SCH (00:51)
[2016-11-12] MEDS: Insulin LISPRO 300 UNITS/3 ML VIAL SQ SCH ×7 (00:53→16:51)
[2016-11-12] MEDS: 0.9 % Sodium Chloride 1,000 ML IVC SCH ×2 (00:54→10:08)
[2016-11-12 01:05] LABS: Basophils # 0.1 K/mcL (0.0-0.2); Basophils % 0.4 %; Eosinophils # 0.1 K/mcL (0.0-0.6); Eosinophils % 0.7 %; Hematocrit 32.5 % (37.5-50.1); Hemoglobin 10.8 g/dL (12.9-16.9); Immature Granulocytes % 2.1 % (0-4); Lymphocytes # 2.8 K/mcL (0.6-4.6); Lymphocytes % 15.4 %; Mean Corpuscular HGB Conc 33.2 g/dL (31.6-35.5); Mean Corpuscular Hemoglobin 28.9 pg (28.0-33.3); Mean Corpuscular Volume 86.9 fL (83.0-100.0); Mean Platelet Volume 10.8 fL (9.4-12.4); Monocytes % 10.8 %; Neutrophils # 12.9 K/mcL (1.6-8.9); Platelet Count 261 K/mcL (140-400); Red Blood Count 3.74 M/mcL (4.19-5.50); Red Cell Distribution Width 14.5 % (11.5-14.5); Segmented Neutrophils % 70.6 %
[2016-11-12 01:08] LABS: INR 1.2; Prothrombin Time 12.9 Seconds (9.4-12.1)
[2016-11-12 01:11] LABS: Activated Partial Thrombo Time 28.5 Seconds (26.0-36.0)
[2016-11-12 01:23] LABS: Albumin 2.4 g/dL (3.5-5.0); Albumin/Globulin Ratio 0.6 (1.1-2.2); Bilirubin,Total 1.5 mg/dL (0.2-1.2); Calcium 8.4 mg/dL (8.6-10.8); Chol/HDL Ratio 8.4 (0-4.9); Globulin 4.3 g/dL (2.4-3.5); Magnesium 1.6 mg/dL (1.6-2.6); Potassium 3.8 mEq/L (3.5-4.5); Total Protein 6.7 g/dL (6.0-8.3)
[2016-11-12 01:30] LABS: Platelet Estimate Normal (Normal)
[2016-11-12 01:43] LABS: Hemoglobin A1C 8.9 %
[2016-11-12 05:50] LABS: Bilirubin,Urine Small (Negative); Blood,Urine Small (Negative); Clarity,Urine Turbid (Clear); Color,Urine Dark Yellow (Yellow); Glucose,Urine (UA) 250 mg/dL (Normal); Ketones,Urine Negative (Negative); Leukocyte Esterase,Urine Negative (Negative); Nitrite,Urine Negative (Negative); PH,Urine 5.5 pH Units (5.0-8.0); Protein,Urine 30 mg/dL (Neg-Trace)
[2016-11-12 06:00] LABS: Squamous Epithelial Cell,Urine Many per lpf (None-Few)
[2016-11-12] MEDS ORDERED: Famotidine 20 MG/2 ML VIAL IVP SCH (06:00)
[2016-11-12 06:11] LABS: Amorphous Sediment,Urine Moderate (Few); Bacteria,Urine Few per hpf (None-Few); RBC,Urine 0-3 per hpf (0-3)
--- NOTE | 2016-11-12 09:26 | Internal Med Progress Note ---
Date of Encounter: 11/12/16 Time of Encounter: 09:23 - Assessment and plan (1) Cellulitis of right lower leg Current Visit: Yes Status: Acute Assessment and plan: Sepsis secondary to severe acute right lower extremity cellulitis/ulcers, failed outpatient with therapy with Bactrim Reorder wound cultures, continue vancomycin day 2 Discontinue Zosyn due to increased risk of renal failure, start cefepime Continue IV fluids (2) Urinary tract infection Current Visit: Yes Status: Acute Assessment and plan: Unlikely a UTI, follow cultures Qualifiers: Urinary tract infection type: acute cystitis Hematuria presence: without hematuria Qualified Code(s): N30.00 - Acute cystitis without hematuria (3) Hyponatremia Current Visit: Yes Status: Acute Assessment and plan: Improving (4) Sepsis affecting skin Current Visit: Yes Status: Acute (5) Morbid obesity with BMI of 40.0-44.9, adult Current Visit: Yes Status: Chronic (6) HEATHER (acute kidney injury) Current Visit: Yes Status: Acute Assessment and plan: Acute renal failure secondary to sepsis, continue IV fluids Hold metformin Hold Lasix (7) 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 Current Visit: Yes Status: Chronic Assessment and plan: Refuses to use insulin, his hemoglobin A1c is 8.9 and his glucose ranged between 200-300 Continue using insulin sliding scale Qualifiers: Diabetes mellitus bed bug exterminator insulin use: unspecified [place] [facility] insulin use status Qualified Code(s): E11.621 - Type 2 diabetes mellitus with foot ulcer; L97.509 - Non-pressure chronic ulcer of other part of unspecified foot with unspecified severity (8) Transaminitis Current Visit: Yes Status: Acute Assessment and plan: Unknown cause (9) Diabetes mellitus with nephropathy Current Visit: Yes Status: Chronic Assessment and plan: Decrease dose of gabapentin from 603 times a day down to 303 times a day due to acute renal failure High risk due to sepsis - Subjective Interval history: The patient is to complain of right lower extremity pain 7 out of 10 in intensity, denies any fevers, no shortness of breath breath or chest pain, no abdominal pain, no dysuria, no diarrhea - Constitutional Vitals: Temp Pulse Resp BP Pulse Ox 97.8 F 112 15 122/69 95 11/12/16 07:00 11/12/16 07:00 11/12/16 07:00 11/12/16 07:00 11/12/16 07:00 General appearance: Present: disheveled, mild distress, A&O X 3, morbidly obese , answers questions appropriately - Head Head exam: Present: atraumatic, normocephalic - Eye Eye exam: Present: PERRL, conjuntiva pink, sclera anicteric Pupils: Present: PERRL - Neck Neck exam general surgery: Present: supple, trachea midline. Absent: lymphadenopathy - Respiratory Respiratory exam: Present: decreased breath sounds, CTAB. Absent: accessory muscle use, rales, rhonchi, wheezes - Cardiovascular Cardiovascular exam: Present: RRR, +S1, +S2. Absent: diastolic murmur, gallop, rubs, systolic murmur - GI/Abdominal GI/Abdominal exam: Present: distended, normal bowel sounds, soft, no peritoneal signs. Absent: tenderness - Extremities Exam Extremities exam: Present: pedal edema, warm, radial pulses palpable and symetrical. Absent: calf tenderness, cyanotic Additional comments: Extensive erythema on the right lower extremity below the knee with large ulcers with yellowish crusts, the area is extremely swollen with +3 pitting edema/lymphedema, standard and warm. - Neurological Exam Neurological exam: Present: CN II-XII intact, oriented X3, no focal deficits. Absent: pronater drift, facial droop, speech deficit - Skin Skin exam: Present: erythema. Absent: dry, intact Internal Medicine: Result - Labs CBC & Chem 7: 11/12/16 00:52 11/12/16 00:52 Labs: Short CBC 11/12/16 Range/Units 00:52 WBC 18.2 H (4.3-11.1) K/mcL Hgb 10.8 L (12.9-16.9) g/dL Hct 32.5 L (37.5-50.1) % Plt Count 261 (140-400) K/mcL Neutrophils # 12.9 H (1.6-8.9) K/mcL BMP 11/12/16 00:52 Sodium 130 L Potassium 3.8 Chloride 96 L Carbon Dioxide 23 BUN 35 H Creatinine 1.84 H Glucose 217 H Calcium 8.4 L Cardiac Enzymes 11/12/16 11/12/16 Range/Units 00:53 06:13 Troponin I 0.02 0.01 (0-0.03) ng/mL Liver Function 11/12/16 Range/Units 00:52 Total Bilirubin 1.5 H (0.2-1.2) mg/dL AST 60 H (5-34) Units/L ALT 60 H (0-55) Units/L Alkaline Phosphatase 219 H (38-126) Units/L Albumin 2.4 L (3.5-5.0) g/dL Urine 11/12/16 Range/Units 04:50 Urine Color Dark Yellow (Yellow) Urine Clarity Turbid A (Clear) Urine pH 5.5 (5.0-8.0) pH Units Ur Specific [place] 1.020 (1.010-1.025) Urine Protein 30 H (Neg-Trace) mg/dL Urine Glucose (UA) 250 H (Normal) mg/dL - ABG Interpretation ABG results: PT/INR, D-dimer PT 12.9 Seconds (9.4-12.1) H 11/12/16 00:52 Consult Discharge Plan - Plan Referrals: Willie Lakhani, PAC [Primary Care Provider] -
[2016-11-12] MEDS: Vancomycin 2,000 MG in D5% in Water 500 ML IVPB SCH (09:34)
[2016-11-12] MEDS ORDERED: Vancomycin 2,000 MG in D5% in Water 500 ML IVPB SCH (12:00)
[2016-11-12] MEDS: Cefepime HCl 1,000 MG in D5% in Water (Mini-Bag+) 100 ML IVPB SCH ×2 (13:13→18:50)
--- NOTE | 2016-11-12 14:16 | Electrocardiograph Report ---
[address] [address] Test Date: 2016-11-11 Pat Name: Karan Cormier Department: 103 Room: 2NE28 Gender: M Merchandise Distributor: : 1955 Requested By: Rachel See Order Number: [id number] Reading MD: Sam Green MD Measurements Intervals [place] Rate: 122 P: 67 MI: 177 QRS: 4 QRSD: 121 T: 62 QT: 330 QTc: 402 Interpretive Statements SINUS TACHYCARDIA MODERATE INTRAVENTRICULAR CONDUCTION DELAY Electronically Signed On 11-12-2016 14:15:22 EDT by Sam Green MD
[2016-11-12] MEDS ORDERED: hydrOXYzine pamoate 25 MG CAPSULE PO PRN (14:24)
[2016-11-12] MEDS: Gabapentin 300 MG CAPSULE PO SCH ×2 (14:58→15:03)
[2016-11-12] MEDS: diazePAM 5 MG TABLET PO SCH (15:03)
[2016-11-12] MEDS: *HR* Heparin 5,000 UNIT/ML VIAL SQ SCH (15:04)
[2016-11-12] MEDS ORDERED: 0.9 % Sodium Chloride 1,000 ML IVC SCH (18:53)
[2016-11-13] MEDS: *HR* Heparin 5,000 UNIT/ML VIAL SQ SCH ×4 (00:03→23:23)
[2016-11-13] MEDS: OXcarbazepine 150 MG TABLET PO SCH ×3 (00:03→23:04)
[2016-11-13] MEDS: Gabapentin 300 MG CAPSULE PO SCH ×4 (00:03→23:03)
[2016-11-13] MEDS: Insulin DETEMIR 100 UNIT/ML X5UNITS SQ SCH ×2 (00:03→23:23)
[2016-11-13] MEDS: diazePAM 5 MG TABLET PO SCH ×4 (00:04→23:04)
[2016-11-13] MEDS: Insulin LISPRO 300 UNITS/3 ML VIAL SQ SCH ×8 (00:19→23:08)
[2016-11-13] MEDS: Cefepime HCl 1,000 MG in D5% in Water (Mini-Bag+) 100 ML IVPB SCH (06:58)
[2016-11-13 07:17] LABS: Hemoglobin 10.1 g/dL (12.9-16.9); Mean Corpuscular HGB Conc 33.7 g/dL (31.6-35.5); Mean Corpuscular Hemoglobin 29.6 pg (28.0-33.3); Mean Platelet Volume 10.5 fL (9.4-12.4); Platelet Count 334 K/mcL (140-400); Red Blood Count 3.41 M/mcL (4.19-5.50); Red Cell Distribution Width 14.8 % (11.5-14.5)
[2016-11-13 07:24] LABS: BUN/Creatinine Ratio 19 (6-26); Calcium 7.9 mg/dL (8.6-10.8); Carbon Dioxide 26 mEq/L (19-29); Chloride 97 mEq/L (98-109); Glucose 226 mg/dL (70-99); Osmolality,Calculated 284 (280-300); Sodium 132 mEq/L (136-145); eGFR For African Americans > 60 (> 60); eGFR For Non-African Americans > 60 (> 60)
[2016-11-13 08:03] LABS: Blood Urea Nitrogen 20 mg/dL (8-26)
[2016-11-13] MEDS: Vancomycin 2,000 MG in D5% in Water 500 ML IVPB SCH (10:30)
--- NOTE | 2016-11-13 14:05 | Internal Med Progress Note ---
Date of Encounter: 11/13/16 Time of Encounter: 14:03 - Assessment and plan (1) Cellulitis of right lower leg Current Visit: Yes Status: Acute Assessment and plan: Sepsis secondary to severe acute right lower extremity cellulitis/ulcers, failed outpatient with therapy with Bactrim Culture is growing Streptococcus group C sensitive to penicillin Reorder wound cultures, discontinue vancomycin day 3 Discontinued Zosyn on 11/12/2016 due to increased risk of renal failure, discontinue cefepime day 2 Start Unasyn 3 g IV every 6 hours Continue IV fluids May discharge to a nursing facility in the morning for rehabilitation (2) Urinary tract infection Current Visit: Yes Status: Acute Assessment and plan: Unlikely a UTI, follow cultures Qualifiers: Urinary tract infection type: acute cystitis Hematuria presence: without hematuria Qualified Code(s): N30.00 - Acute cystitis without hematuria (3) Hyponatremia Current Visit: Yes Status: Acute Assessment and plan: Improving (4) Sepsis affecting skin Current Visit: Yes Status: Acute (5) Morbid obesity with BMI of 40.0-44.9, adult Current Visit: Yes Status: Chronic (6) HEATHER (acute kidney injury) Current Visit: Yes Status: Acute Assessment and plan: Acute renal failure secondary to sepsis, discontinue IV fluids Hold metformin Resume Lasix IV 20 mg twice a day, he takes 20 mg oral twice a day at home Resume lisinopril 2.5 g daily (7) 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 Current Visit: Yes Status: Chronic Assessment and plan: Refuses to use insulin, his hemoglobin A1c is 8.9 and his glucose ranged between 200-300 We will resume metformin upon discharge Continue using insulin sliding scale Qualifiers: 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 The patient is to complain of right lower extremity pain 6 out of 10 in intensity, denies any fevers, no shortness of breath breath or chest pain, no abdominal pain, no dysuria, no diarrhea - Constitutional Vitals: Temp Pulse Resp BP Pulse Ox 98.6 F 108 20 135/80 98 11/13/16 11:43 11/13/16 11:43 11/13/16 11:43 11/13/16 11:43 11/13/16 11:43 General appearance: Present: disheveled, mild distress, A&O X 3, morbidly obese , answers questions appropriately - Head Head exam: Present: atraumatic, normocephalic - Eye Eye exam: Present: PERRL, conjuntiva pink, sclera anicteric Pupils: Present: PERRL - Neck Neck exam general surgery: Present: supple, trachea midline. Absent: lymphadenopathy - Respiratory Respiratory exam: Present: CTAB, rales (Left basilar crackles, no wheezing). Absent: accessory muscle use, rhonchi, wheezes - Cardiovascular Cardiovascular exam: Present: RRR, +S1, +S2. Absent: diastolic murmur, gallop, rubs, systolic murmur - GI/Abdominal GI/Abdominal exam: Present: normal bowel sounds, soft, no peritoneal signs. Absent: distended, tenderness - Extremities Exam Extremities exam: Present: warm, radial pulses palpable and symetrical. Absent : calf tenderness, cyanotic, pedal edema Additional comments: Right lower extremity has severe chronic lymphedema severe erythema below the knee with yellowish crusts - Neurological Exam Neurological exam: Present: CN II-XII intact, oriented X3, no focal deficits. Absent: pronater drift, facial droop, speech deficit - Skin Skin exam: Present: dry, intact Internal Medicine: Result - Labs CBC & Chem 7: 11/13/16 06:57 11/13/16 06:57 Labs: Short CBC 11/13/16 Range/Units 06:57 WBC 15.4 H (4.3-11.1) K/mcL Hgb 10.1 L (12.9-16.9) g/dL Hct 30.0 L (37.5-50.1) % Plt Count 334 (140-400) K/mcL BMP 11/13/16 06:57 Sodium 132 L Potassium 4.0 Chloride 97 L Carbon Dioxide 26 BUN 20 D Creatinine 1.07 Glucose 226 H Calcium 7.9 L Cardiac Enzymes 11/12/16 Range/Units 13:40 Troponin I 0.01 (0-0.03) ng/mL - ABG Interpretation ABG results: PT/INR, D-dimer PT 12.9 Seconds (9.4-12.1) H 11/12/16 00:52 Consult Discharge Plan - Plan Referrals: Willie Lakhani, PAC [Primary Care Provider] -
[2016-11-13] MEDS: Ampicillin/Sulbactam 3,000 MG in 0.9 % Sodium Chloride Mini Bag 100 ML IVPB SCH ×2 (15:24→23:04)
[2016-11-13] MEDS: Furosemide 20 MG/2 ML VIAL IVP SCH ×2 (15:38→17:30)
[2016-11-13] MEDS ORDERED: Perflutren Lipid Microsphere 1.3 ML in 0.9 % Sodium Chloride 8.7 ML IVP ONE (20:40)
[2016-11-13] MEDS ORDERED: Vancomycin 1,500 MG in D5% in Water 250 ML IVPB SCH ×2 (21:00→22:00)
[2016-11-13] MEDS: Miconazole 2% ointment 114 GM TUBE TP SCH (23:08)
[2016-11-14] MEDS: Ampicillin/Sulbactam 3,000 MG in 0.9 % Sodium Chloride Mini Bag 100 ML IVPB SCH ×3 (02:00→14:38)
[2016-11-14] MEDS: *HR* Heparin 5,000 UNIT/ML VIAL SQ SCH ×2 (06:56→14:30)
[2016-11-14 07:07] VITALS: BP 148/81
[2016-11-14 07:16] LABS: BUN/Creatinine Ratio 14 (6-26); Blood Urea Nitrogen 14 mg/dL (8-26); Calcium 8.2 mg/dL (8.6-10.8); Carbon Dioxide 28 mEq/L (19-29); Chloride 98 mEq/L (98-109); Glucose 218 mg/dL (70-99); Osmolality,Calculated 289 (280-300); Potassium 4.1 mEq/L (3.5-4.5); Sodium 136 mEq/L (136-145); eGFR For African Americans > 60 (> 60); eGFR For Non-African Americans > 60 (> 60)
[2016-11-14 07:21] LABS: Hematocrit 33.1 % (37.5-50.1); Hemoglobin 10.8 g/dL (12.9-16.9); Mean Corpuscular HGB Conc 32.6 g/dL (31.6-35.5); Mean Platelet Volume 10.3 fL (9.4-12.4); Platelet Count 416 K/mcL (140-400); Red Blood Count 3.72 M/mcL (4.19-5.50)
[2016-11-14] MEDS ORDERED: Metoprolol XL (24 HR) Succ 25 MG TAB.ER.24H PO SCH (10:00)
[2016-11-14] MEDS ORDERED: *HR* Metoprolol 5 MG/5 ML VIAL IVP ONE (10:01)
--- NOTE | 2016-11-14 10:03 | Discharge Summary ---
Date of Encounter: 11/14/16 Time of Encounter: 10:02 - Discharge Diagnosis (1) Cellulitis of right lower leg Priority: Primary Status: Acute Comments: Sepsis secondary to severe acute right lower extremity cellulitis/ulcers, failed outpatient with therapy with Bactrim Culture is growing Streptococcus group C sensitive to penicillin (2) Urinary tract infection Priority: Secondary Status: Acute Qualifiers: Urinary tract infection type: acute cystitis Hematuria presence: without hematuria Qualified Code(s): N30.00 - Acute cystitis without hematuria (3) Hyponatremia Priority: Secondary Status: Acute (4) Sepsis affecting skin Priority: Primary Status: Acute (5) Morbid obesity with BMI of 40.0-44.9, adult Priority: Secondary Status: Chronic (6) HEATHER (acute kidney injury) Priority: Secondary Status: Acute (7) 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 Priority: Secondary Status: Chronic (8) Transaminitis Priority: Secondary Status: Acute (9) Diabetes mellitus with nephropathy Priority: Secondary Status: Chronic - Discharge Medications Prescriptions: OxyCODONE Immed Rel [Roxicodone 5 MG] 10 mg PO Q6HR PRN #20 tablet PRN Reason: Moderate Pain (4-6) Amoxicillin/Potassium Clav [Augmentin Xr 1,000-62.5 Tab] 1 each PO BID #20 tab.er.12h Diazepam [Valium] 5 mg PO TID #30 tablet Metoprolol XL (24 HR) Succ [Toprol Xl] 25 mg PO DAILY #30 tab.er.24h Oxcarbazepine 300 mg PO BID #60 tablet Home Medications: Metformin [Glucophage] 1,000 mg PO BIDWM 08/01/15 [History] Furosemide [Lasix] 20 mg PO BID 12/17/15 [History] Amitriptyline HCl 100 mg PO HS 11/09/16 [History] Benztropine Mesylate 2 mg PO BID 11/09/16 [History] HydrOXYzine Pamoate 25 mg PO BID PRN 11/09/16 [History] Lisinopril 2.5 mg PO DAILY 11/09/16 [History] Potassium Chloride [K-Tab ER] 10 meq PO BID 11/09/16 [History] Simvastatin [Zocor] 20 mg PO HS 11/09/16 [History] Gabapentin [Neurontin] 1,600 mg PO BID 11/12/16 [History] Gabapentin [Neurontin] 400 mg PO 1300 11/12/16 [History] Pantoprazole Sodium [Protonix] 40 mg PO DAILY 11/12/16 [History] Amoxicillin/Potassium Clav [Augmentin Xr 1,000-62.5 Tab] 1 each PO BID #20 tab.er.12h 11/14/16 [Rx] Diazepam [Valium] 5 mg PO TID #30 tablet 11/14/16 [Rx] Metoprolol XL (24 HR) Succ [Toprol Xl] 25 mg PO DAILY #30 tab.er.24h 11/14/16 [ Rx] Oxcarbazepine 300 mg PO BID #60 tablet 11/14/16 [Rx] OxyCODONE Immed Rel [Roxicodone 5 MG] 10 mg PO Q6HR PRN #20 tablet 11/14/16 [Rx] Allergies/Adverse Reactions: Allergies aspirin Allergy (Verified 10/22/16 20:35) Rash codeine Allergy (Verified 10/22/16 20:35) Rash iodine Allergy (Verified 10/22/16 20:35) See Comments Procedures/tests Complete & Pending: Procedures Performed prior 72 hours Category Date Time Status EV echocardiogram w enhance Routine Y 11/13/16 14:06 Completed Date of admission: 11/12/16 09:30 Primary care physician: Willie Lakhani Consults: 11/12/16 10:22 Consult to Occupational Therapy [CONS] Routine Comment: Evaluate, develop and implement POC Consult to Physical Therapy [CONS] Routine Comment: Evaluate, develop and implement POC 11/12/16 15:54 Consult to Wound Care [CONS] Routine Reason for Consult: ulcers to RLE Call Completed: Yes - Patient Status Disposition: Transfer SNF Condition: Fair Overall status at discharge: patient is progressing back to baseline - Discharge Instructions Follow Up With: Willie Lakhani, PAC [Primary Care Provider] - Additional Instructions: Follow with primary care pphysician after being discharged from facility COntinue 10 more days of Augmentin BID. Toprol started. Fall precautions. Refusing insulin. Quit smoking - Diet and Activity Activity: increase activity as tolerated, wear oxygen at all times (3Lt) Diet: diabetic diet Hospital course: Mr. Cormier is a 61 year old male with a past medical history of COPD oxygen dependent, diabetes refusing to use insulin, hyperlipidemia, hypertension, osteoporosis, CKD3, venous stasis to complain of severe pain on the right lower extremity cellulitis. The patient failed Bactrim. His white blood cell count increased up to 18.2, sodium was 126 creatinine 1.93. His numbers today are white cell count 13.5, sodium 136 and creatinine 1.02 Initially she was started on Zosyn and vancomycin, Zosyn was switched to cefepime and his antibiotics were switched again after his culture grew Streptococcus group C sensitive to penicillin discontinued vancomycin at day 3 The patient has a hemoglobin A1c of 8.9 , refuses to use insulin. Risks explained. Discontinued Zosyn on 11/12/2016 due to increased risk of renal failure, discontinue cefepime day 2 Start Unasyn 3 g IV every 6 hours The patient's Lasix was restarted, he is requiring oxygen 3 L. She was given the option sustained another day because his heart rate was 115, she mentions his feeling better and he either wants to be discharged home or go to a facility. He will be started on Toprol, needs to continue Augmentin for 10 days Time spent discussing smoking cessation with patient: 3 to 10 minutes - Time Spent with Patient Total time spent providing and/or coordinating discharge services: Greater than 30 minutes (40 min) - Constitutional Vitals: Temp Pulse Resp BP Pulse Ox 97.7 F 113 18 148/81 93 L 11/14/16 07:06 11/14/16 07:06 11/14/16 07:06 11/14/16 07:06 11/14/16 08:00 General appearance: Present: disheveled, mild distress, A&O X 3, morbidly obese , answers questions appropriately - Head Head exam: Present: atraumatic, normocephalic - Eye Eye exam: Present: PERRL, conjuntiva pink, sclera anicteric Pupils: Present: PERRL Additional comments: Strabismus on the left eye - Neck Neck exam general surgery: Present: supple, trachea midline. Absent: lymphadenopathy - Respiratory Respiratory exam: Present: decreased breath sounds, CTAB. Absent: accessory muscle use, rales, rhonchi, wheezes - Cardiovascular Cardiovascular exam: Present: RRR, +S1, +S2. Absent: diastolic murmur, gallop, rubs, systolic murmur - GI/Abdominal GI/Abdominal exam: Present: normal bowel sounds, soft, no peritoneal signs. Absent: distended, tenderness - Extremities Exam Extremities exam: Present: pedal edema (Right lower extremity +3 pitting edema less erythematous but with still extensive erythema below the knee, yellowish crust has improved have 2 large ulcers very superficial), tenderness, warm, radial pulses palpable and symetrical. Absent: calf tenderness, cyanotic - Neurological Exam Neurological exam: Present: CN II-XII intact, oriented X3, no focal deficits. Absent: pronater drift, facial droop, speech deficit - Skin Skin exam: Present: dry, intact
--- NOTE | 2016-11-14 10:20 | Physician Discharge Referral ---
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 Status: Chronic (8) Transaminitis Status: Acute (9) Diabetes mellitus with nephropathy Status: Chronic - Transfer Medications Prescriptions: OxyCODONE Immed Rel [Roxicodone 5 MG] 10 mg PO Q6HR PRN #20 tablet PRN Reason: Moderate Pain (4-6) Amoxicillin/Potassium Clav [Augmentin Xr 1,000-62.5 Tab] 1 each PO BID #20 tab.er.12h Diazepam [Valium] 5 mg PO TID #30 tablet Metoprolol XL (24 HR) Succ [Toprol Xl] 25 mg PO DAILY #30 tab.er.24h Oxcarbazepine 300 mg PO BID #60 tablet Home Medications: Metformin [Glucophage] 1,000 mg PO BIDWM 08/01/15 [History] Furosemide [Lasix] 20 mg PO BID 12/17/15 [History] Amitriptyline HCl 100 mg PO HS 11/09/16 [History] Benztropine Mesylate 2 mg PO BID 11/09/16 [History] HydrOXYzine Pamoate 25 mg PO BID PRN 11/09/16 [History] Lisinopril 2.5 mg PO DAILY 11/09/16 [History] Potassium Chloride [K-Tab ER] 10 meq PO BID 11/09/16 [History] Simvastatin [Zocor] 20 mg PO HS 11/09/16 [History] Gabapentin [Neurontin] 1,600 mg PO BID 11/12/16 [History] Gabapentin [Neurontin] 400 mg PO 1300 11/12/16 [History] Pantoprazole Sodium [Protonix] 40 mg PO DAILY 11/12/16 [History] Amoxicillin/Potassium Clav [Augmentin Xr 1,000-62.5 Tab] 1 each PO BID #20 tab.er.12h 11/14/16 [Rx] Diazepam [Valium] 5 mg PO TID #30 tablet 11/14/16 [Rx] Metoprolol XL (24 HR) Succ [Toprol Xl] 25 mg PO DAILY #30 tab.er.24h 11/14/16 [ Rx] Oxcarbazepine 300 mg PO BID #60 tablet 11/14/16 [Rx] OxyCODONE Immed Rel [Roxicodone 5 MG] 10 mg PO Q6HR PRN #20 tablet 11/14/16 [Rx] Allergies/Adverse Reactions: Allergies aspirin Allergy (Verified 10/22/16 20:35) Rash codeine Allergy (Verified 10/22/16 20:35) Rash iodine Allergy (Verified 10/22/16 20:35) See Comments - Respiratory Orders Oxygen / L per min (3Lt) Smoking Cessation: Smoking cessation has been advised. For more information, call the [employer] Tobacco Quit Line at 5-467-DMHKNOW. - Advance Directives Code Status: Full Code - Treatments List/Other: Follow with primary care pphysician after being discharged from facility COntinue 10 more days of Augmentin BID. Toprol started. Fall precautions. Refusing insulin. Quit smoking - Diet Orders No Added Salt (HAN) (diabetic diet 1800 loco) CERTIFICATION: I certify that the transfer of the above named patient to an Extended Care Facility is necessary for the continuing treatment of the diagnosis listed. The above information is true and accurate reflection of patient's current condition. Confidential - Redisclosure prohibited without a patient's written consent.
[2016-11-14] MEDS: Furosemide 20 MG/2 ML VIAL IVP SCH ×2 (10:32→14:33)
[2016-11-14] MEDS: diazePAM 5 MG TABLET PO SCH ×2 (11:00→14:38)
[2016-11-14] MEDS: *HR* OxyCODONE Immed Rel 5 MG TABLET PO PRN ×2 (11:00→17:12)
[2016-11-14] MEDS: OXcarbazepine 150 MG TABLET PO SCH (11:00)
[2016-11-14] MEDS: Gabapentin 300 MG CAPSULE PO SCH ×2 (11:01→14:38)
[2016-11-14] MEDS: Insulin LISPRO 300 UNITS/3 ML VIAL SQ SCH ×6 (11:02→17:11)
[2016-11-14] MEDS: Miconazole 2% ointment 114 GM TUBE TP SCH (11:03)
--- NOTE | 2016-11-14 11:22 | ECHO - Doppler Report ---
Echo with Imaging Enhancement Agent Name: Karan Cormier Date of Study: 11/13/2016 Date: 1955 Ht: 69.0 in Medical Record#: [id number] Age: 61 Wt: 298.0 lb Gender: Male BSA: 2.45 Order #: [id number] Location: [facility] Room #: 2NE28 Reading Physician: Carmina Blood DO Assistant Professor Of Religion: LIVAN MasonT Ordering Physician: Rigo Barakat MD Primary Physician: ROSS Mock Indications: Congestive heart failure Impressions: Sinus tachycardia. LVEF 65%. Definity was given. Normal right ventricular size and function. No significant valvular dysfunction. No pulmonary hypertension. Left Ventricular Wall Motion: Rest Echo Findings All wall segments showed normal motion. Findings: Study Quality * Technically sub-optimal due to body habitus. ECG Findings * Sinus tachycardia. Left Ventricle * LVEF 65%. * Indeterminate diastolic function. * Definity echo contrast was used. Left Atrium * Normal left atrial size. Mitral Valve * Normal mitral valve structure. * No mitral stenosis. * No mitral regurgitation. Aorta * Normally sized aortic root. Tricuspid Valve * Tricuspid valve not well visualized. * No tricuspid regurgitation. Pulmonic Valve * Pulmonic valve is not well visualized. * No pulmonic stenosis. * No pulmonic regurgitation. Pulmonary Artery * Pulmonary artery not well visualized. Aortic Valve * Trileaflet aortic valve. * Normal aortic valve structure. * No aortic stenosis. Right Ventricle * Normal right ventricular structure and function. Right Atrium * Normal right atrial size. Interatrial Septum * Interatrial septum not well evaluated. Pericardium * There is no pericardial effusion present. IVC * The IVC is not well evaluated. History Hypertension Diabetes Hypercholesteremia Contrast: Definity 1.3 ml in 8.7 ml of saline 2 ml. Measurements: BP: 127/ 62 2D Normal Values RVIDd: 3.10 cm <2.7 cm IVSd: .80 cm 0.6 - 1.0 cm LVIDd: 5.60 cm 3.7 - 5.6 cm LVPWd: .80 cm 0.6 - 1.1 cm LVIDs: 3.40 cm 1.5 - 3.6 cm AO: 3.20 cm < 4.0 cm LA: 3.80 cm 2.0 - 4.0cm %FS: 39.30 cm >25 % LA volume: 63 Mitral Valve Peak E:1.17 m/sec Peak E' Lat Luis:12.2 cm/s Peak E' Med Luis:14.6 cm/s E/E' Lat Ratio:9.6 E/E' Med Ratio:8 Aortic Valve Peak Luis:1.89 m/sec Mean Luis:1.46 m/sec Peak Grad:14.00 mmHg Mean Grad:9.00 mmHg Tricuspid Valve TV Regurg Peak Grad: 9.00mmHg TV Regurg Peak Luis: 1.52m/sec Updated by Carmina Blood on 11/14/2016 11:16:15 AM electronically signed on 11/14/2016 11:18:28 AM with status of Final Wall Motion Hernandez: 1=Normal, 2=Hypokinesis, 3=Akinesis, 4=Dyskinesis, 5=Aneurysmal, 6=Hyperkinetic, X=Not Visualized (Blank)=Missing
== END 2016-11-14 18:00 | DRG 720 ==
LOC: EMEROO 17:11 → 2NENU 17:11
PROVIDERS: ADMIT Internal Medicine; ATTEND Internal Medicine

== ENCOUNTER 2016-11-15 04:42 | Inpatient (IN) ==
--- NOTE | 2016-11-15 05:02 | Emergency Department Note ---
Disposition Clinical Impression: HCAP (healthcare-associated pneumonia), Acute kidney injury Cellulitis of lower extremity Qualifiers: Laterality: right Qualified Code(s): L03.115 - Cellulitis of right lower limb Altered mental status Qualifiers: Altered mental status type: unspecified Qualified Code(s): R41.82 - Altered mental status, unspecified Disposition: Admitted As Inpatient Condition: Good Fever HPI - General Chief Complaint: ED Fever Stated Complaint: fever/AMS Time Seen by Provider: 11/15/16 04:50 Source: patient, EMS Limitations: altered mental status Nursing Notes Reviewed: Yes Vital Signs Reviewed: Yes - History of Present Illness HPI Narrative: 61-year-old male history of poorly controlled diabetes who presents to the ER with a chief complaint of fever and altered mental status. [facility] Reports that he was just discharged today to the facility after recent admission for lower externally cellulitis. alf reports that he was tachycardic there as well as febrile at 102. He also reported he was altered presentation but is unknown of his baseline. Patient went to the ER for evaluation. He currently denies any complaints. He denies any chest pain, shortness of breath, cough, nausea, vomiting. Does state that his left lower steward that is hurting him on the right. No other complaints. Pt Subjective Complaint: fever Onset (ago): hour(s) Maximum Temperature Reported: 102 F Temperature Source: oral Associated symptoms: Reports: denies other symptoms Improves with: nothing Worsens with: nothing Treatments prior to arrival fever: antibiotics - Related Data Home Medications Medication Instructions Recorded Confirmed Metformin [Glucophage] 1,000 mg PO BIDWM 08/01/15 11/15/16 Furosemide [Lasix] 20 mg PO BID 12/17/15 11/15/16 Amitriptyline HCl 100 mg PO HS 11/09/16 11/15/16 Benztropine Mesylate 2 mg PO BID 11/09/16 11/15/16 HydrOXYzine Pamoate 25 mg PO BID PRN 11/09/16 11/15/16 Lisinopril 2.5 mg PO DAILY 11/09/16 11/15/16 Potassium Chloride [K-Tab ER] 10 meq PO BID 11/09/16 11/15/16 Simvastatin [Zocor] 20 mg PO HS 11/09/16 11/15/16 Gabapentin [Neurontin] 1,600 mg PO BID 11/12/16 11/15/16 Gabapentin [Neurontin] 400 mg PO 1300 11/12/16 11/15/16 Pantoprazole Sodium [Protonix] 40 mg PO DAILY 11/12/16 11/15/16 Amoxicillin/Potassium Clav 1 tab PO BID 11/15/16 11/15/16 [Augmentin Xr 1,000-62.5 Tab] Previous Rx's Medication Instructions Recorded Diazepam [Valium] 5 mg PO TID #30 tablet 11/14/16 Metoprolol XL (24 HR) Succ [Toprol 25 mg PO DAILY #30 tab.er.24h 11/14/16 Xl] Oxcarbazepine 300 mg PO BID #60 tablet 11/14/16 OxyCODONE Immed Rel [Roxicodone 5 10 mg PO Q6HR PRN #20 tablet 11/14/16 MG] Allergies Allergy/AdvReac Type Severity Reaction Status Date / Time aspirin Allergy Rash Verified 10/22/16 20:35 codeine Allergy Rash Verified 10/22/16 20:35 iodine Allergy See Verified 10/22/16 20:35 Comments All systems ED: reviewed and negative except as stated. Constitutional: Denies: fever Cardiovascular: Denies: chest pain Respiratory: Denies: cough, dyspnea Gastrointestinal: Denies: abdominal pain, nausea, vomiting Integumentary: Reports: rash Fever PMH - Past Medical History Medical history: Reports: arthritis, COPD, diabetes, hyperlipidemia, hypertension, osteoporosis, renal disease, venous stasis, other Surgical history: Reports: appendectomy, cataract, other Psychiatric history: Reports: anxiety, bipolar, depression, PTSD, schizophrenia - Social History Smoking Status: Current every day smoker Alcohol use: Reports: none Drug use: Reports: none Physical Exam - General Limitations: altered mental status General appearance: alert, in no apparent distress, obese - Head Head exam: atraumatic, normocephalic, normal inspection - Eye Eye exam: Present: normal appearance, EOMI - ENT ENT exam: normal exam - Neck Neck exam: Present: normal inspection - Chest Chest inspection: Present: normal inspection, symmetric chest wall rise - Respiratory Respiratory exam: Present: normal lung sounds bilaterally - Cardiovascular Cardiovascular exam: Present: normal rhythm, tachycardia, normal heart sounds - Abdominal Exam Abdominal exam: Present: soft, Non-Tender. Absent: tenderness - Extremities Exam Extremities exam: Present: normal inspection, full ROM - Expanded Upper Extremity Exam Shoulder exam: Present: normal inspection, full ROM Arm exam: Present: normal inspection, full ROM Elbow exam: Present: normal inspection, full ROM Forearm/Wrist exam: Present: normal inspection, full ROM Hand exam: Present: normal inspection, full ROM - Expanded Lower Extremity Exam Hip/Pelvis exam: Present: normal inspection, full ROM Upper leg exam: Present: normal inspection, full ROM Knee exam: Present: normal inspection, full ROM Lower leg exam: Present: full ROM, swelling (There is 3+ edema to the right lower extremity with overlying cellulitic changes from the knee distal. There is skin breakdown with 2 ulcerations to the plantar and lateral aspect of the foot. Bedside ultrasound demonstrates cobblestoning and soft tissue swelling. Pulses dopplerable PT and DP.) Ankle exam: Present: full ROM Foot/toe exam: Present: full ROM - Neurological Exam Neurological exam: Present: alert. Absent: oriented X3 - Psychiatric Psychiatric exam: Present: normal affect, normal mood - Skin Skin exam: Present: warm, dry, intact, erythema (Right lower extremity distal to the knee) Course Course Narrative: Patient seen and examined. Vital signs reviewed. He is afebrile here. Blood pressure stable. He is slightly tachycardic here. We will repeat labs, lactate , blood cultures. Disposition pending. - Reevaluation(s) Reevaluation #1: Patient is diaphoretic in the room. Blood pressure 90/70. We will continue IV fluids and closely monitor. Vital Signs Temperature 98.4 F 11/15/16 04:46 Pulse Rate 113 11/15/16 04:46 Respiratory Rate 20 11/15/16 04:46 Blood Pressure 108/69 11/15/16 04:46 O2 Sat by Pulse Oximetry 95 11/15/16 04:46 Temperature 98.3 F 11/15/16 19:05 Pulse Rate 103 11/15/16 19:05 Respiratory Rate 17 11/15/16 19:05 Blood Pressure 115/65 11/15/16 19:05 O2 Sat by Pulse Oximetry 93 L 11/15/16 19:05 Oxygen Delivery Oxygen Delivery Nasal Cannula Fever - MDM Narrative Medical decision making narrative: 61-year-old male presents to the ER due to altered mental status, fever. Patient was recently admitted here for cellulitis of the lower extremity. Patient was febrile at the assisted to 102. Also tachycardic while here. He has significant swelling and erythema to the right lower extremity. Chest x- ray also showed a concern for pulmonary congestion and left lower lobe possible infiltrate. Given his recent hospitalization, fever and white count we will cover him for healthcare associated pneumonia. We held from giving the 30 mL/ kg bolus due to his pulmonary vascular congestion. Cultures and lactate of an obtained. Patient admitted to the hospitalist service. - Lab Data Lab results reviewed: Yes I reviewed the patient's lab results. Result diagrams: 11/15/16 04:50 11/15/16 04:50 Lab Results 11/15/16 11/15/16 11/15/16 Range/Units 04:50 04:50 04:50 WBC 14.0 H (4.3-11.1) K/mcL RBC 3.95 L (4.19-5.50) M/mcL Hgb 11.2 L (12.9-16.9) g/dL Hct 35.9 L (37.5-50.1) % MCV 90.9 (83.0-100.0) fL MCH 28.4 (28.0-33.3) pg MCHC 31.2 L (31.6-35.5) g/dL RDW 15.4 H (11.5-14.5) % Plt Count 484 H (140-400) K/mcL MPV 9.8 (9.4-12.4) fL Seg Neutrophils % 46.0 % Band Neutrophils % 2.0 (0-4) % Lymphocytes % 30.0 % Monocytes % 14.0 % Eosinophils % 4.0 % Basophils % 2.0 % Metamyelocytes % 2.0 H (0) % Neutrophils # 6.7 (1.6-8.9) K/mcL Lymphocytes # 4.2 (0.6-4.6) K/mcL Monocytes # 2.0 H (0.0-1.3) K/mcL Eosinophils # 0.6 (0.0-0.6) K/mcL Basophils # 0.3 H (0.0-0.2) K/mcL Reactive Lymphocytes Present A (Not Present) Platelet Estimate Slight increase H (Normal) Polychromasia 1+ A (Not Present) PT 13.1 H (9.4-12.1) Seconds INR 1.2 APTT 30.8 (26.0-36.0) Seconds Sodium 134 L (136-145) mEq/L Potassium 4.9 H (3.5-4.5) mEq/L Chloride 96 L (98-109) mEq/L Carbon Dioxide 28 (19-29) mEq/L BUN 25 D (8-26) mg/dL Creatinine 1.85 H D (0.72-1.25) mg/dL Est GFR ( Amer) 45 L (> 60) Est GFR (Non-Af Amer) 37 L (> 60) BUN/Creatinine Ratio 14 (6-26) Glucose 304 H (70-99) mg/dL POC Glucose (58-89) Calculated Osmolality 294 (280-300) Lactic Acid (0.5-2.2) mmol/L Calcium 8.6 (8.6-10.8) mg/dL Phosphorus 4.0 (2.3-4.7) mg/dL Magnesium 1.5 L (1.6-2.6) mg/dL Total Bilirubin 1.2 (0.2-1.2) mg/dL Direct Bilirubin 0.9 H (0.0-0.5) mg/dL Indirect Bilirubin 0.3 (0.0-1.2) mg/dL AST 52 H (5-34) Units/L ALT 53 (0-55) Units/L Alkaline Phosphatase 530 H (38-126) Units/L Troponin I (0-0.03) ng/mL B-Natriuretic Peptide (0-100) pg/mL Serum Total Protein 7.3 (6.0-8.3) g/dL Albumin 2.2 L (3.5-5.0) g/dL Globulin 5.1 H (2.4-3.5) g/dL Albumin/Globulin Ratio 0.4 L (1.1-2.2) 11/15/16 11/15/16 11/15/16 Range/Units 04:50 04:50 04:50 WBC (4.3-11.1) K/mcL RBC (4.19-5.50) M/mcL Hgb (12.9-16.9) g/dL Hct (37.5-50.1) % MCV (83.0-100.0) fL MCH (28.0-33.3) pg MCHC (31.6-35.5) g/dL RDW (11.5-14.5) % Plt Count (140-400) K/mcL MPV (9.4-12.4) fL Seg Neutrophils % % Band Neutrophils % (0-4) % Lymphocytes % % Monocytes % % Eosinophils % % Basophils % % Metamyelocytes % (0) % Neutrophils # (1.6-8.9) K/mcL Lymphocytes # (0.6-4.6) K/mcL Monocytes # (0.0-1.3) K/mcL Eosinophils # (0.0-0.6) K/mcL Basophils # (0.0-0.2) K/mcL Reactive Lymphocytes (Not Present) Platelet Estimate (Normal) Polychromasia (Not Present) PT (9.4-12.1) Seconds INR APTT (26.0-36.0) Seconds Sodium (136-145) mEq/L Potassium (3.5-4.5) mEq/L Chloride (98-109) mEq/L Carbon Dioxide (19-29) mEq/L BUN (8-26) mg/dL Creatinine (0.72-1.25) mg/dL Est GFR ( Amer) (> 60) Est GFR (Non-Af Amer) (> 60) BUN/Creatinine Ratio (6-26) Glucose (70-99) mg/dL POC Glucose (58-89) Calculated Osmolality (280-300) Lactic Acid 0.9 (0.5-2.2) mmol/L Calcium (8.6-10.8) mg/dL Phosphorus (2.3-4.7) mg/dL Magnesium (1.6-2.6) mg/dL Total Bilirubin (0.2-1.2) mg/dL Direct Bilirubin (0.0-0.5) mg/dL Indirect Bilirubin (0.0-1.2) mg/dL AST (5-34) Units/L ALT (0-55) Units/L Alkaline Phosphatase (38-126) Units/L Troponin I 0.01 (0-0.03) ng/mL B-Natriuretic Peptide 71 (0-100) pg/mL Serum Total Protein (6.0-8.3) g/dL Albumin (3.5-5.0) g/dL Globulin (2.4-3.5) g/dL Albumin/Globulin Ratio (1.1-2.2) 11/15/16 11/15/16 Range/Units 05:27 07:57 WBC (4.3-11.1) K/mcL RBC (4.19-5.50) M/mcL Hgb (12.9-16.9) g/dL Hct (37.5-50.1) % MCV (83.0-100.0) fL MCH (28.0-33.3) pg MCHC (31.6-35.5) g/dL RDW (11.5-14.5) % Plt Count (140-400) K/mcL MPV (9.4-12.4) fL Seg Neutrophils % % Band Neutrophils % (0-4) % Lymphocytes % % Monocytes % % Eosinophils % % Basophils % % Metamyelocytes % (0) % Neutrophils # (1.6-8.9) K/mcL Lymphocytes # (0.6-4.6) K/mcL Monocytes # (0.0-1.3) K/mcL Eosinophils # (0.0-0.6) K/mcL Basophils # (0.0-0.2) K/mcL Reactive Lymphocytes (Not Present) Platelet Estimate (Normal) Polychromasia (Not Present) PT (9.4-12.1) Seconds INR APTT (26.0-36.0) Seconds Sodium (136-145) mEq/L Potassium (3.5-4.5) mEq/L Chloride (98-109) mEq/L Carbon Dioxide (19-29) mEq/L BUN (8-26) mg/dL Creatinine (0.72-1.25) mg/dL Est GFR ( Amer) (> 60) Est GFR (Non-Af Amer) (> 60) BUN/Creatinine Ratio (6-26) Glucose (70-99) mg/dL POC Glucose 295 H (58-89) Calculated Osmolality (280-300) Lactic Acid 1.1 (0.5-2.2) mmol/L Calcium (8.6-10.8) mg/dL Phosphorus (2.3-4.7) mg/dL Magnesium (1.6-2.6) mg/dL Total Bilirubin (0.2-1.2) mg/dL Direct Bilirubin (0.0-0.5) mg/dL Indirect Bilirubin (0.0-1.2) mg/dL AST (5-34) Units/L ALT (0-55) Units/L Alkaline Phosphatase (38-126) Units/L Troponin I (0-0.03) ng/mL B-Natriuretic Peptide (0-100) pg/mL Serum Total Protein (6.0-8.3) g/dL Albumin (3.5-5.0) g/dL Globulin (2.4-3.5) g/dL Albumin/Globulin Ratio (1.1-2.2) - Radiology Data Radiology results reviewed: Yes I reviewed the patient's radiology results. - EKG Data EKG attestation: Yes I reviewed and interpreted this EKG. EKG results narrative: EKG demonstrates sinus tachycardia with a rate of 112. Normal axis. TN interval 188 QRS duration 134 QTC 394 T wave flattening in aVL unchanged from previous. No ST elevations or depressions. No acute ischemic findings. No significant changes from previous EKG dated 11/11/69 Critical Care Time Critical Care Time: Yes Total Critical Care Time: 40 Attestation: Critical care performed: Time is exclusive of separately billable procedures. Time includes: direct patient care, patient reassessment, coordination of patient care, interpretation of data (laboratory data, radiology data, and respiratory data), review of patient's medical records, medical consultation and documentation of patient care. Procedures included in critical care time: Procedures excluded from critical care time: S.B.A.R. - S.B.A.R. Situation: Demographics, MOA Background: Presenting Complaint, Relevant PMH, Meds, & Allergies Assessment: Vital Signs, Course and respsone to treatment, Exam Concerns, Patient/Family Expectation, Pertinant Lab Results, Outstanding Labs Recommendation: Barrier(s) to disposition, Recommendation based on pending studies, treatments, or consults S.B.A.R. Report Given to: Dr. Aragon accepts S.B.A.R. Repor Time: 06:37 (Request to start 0.9 at 100 mL's per hour.) Attestation Statement - Attestation Attestation: I, Trent Chacon MD, personally performed a history and physical exam of the patient and discussed their management with the resident. I reviewed the resident's note and agree with the documented findings, medical decision making , and plan of care. 61-year-old male who was just discharged from this facility less than 12 hours ago and transferred to an [facility] because of a temperature of 102.8 and altered mental status. Was in the hospital for cellulitis of the right lower leg and sepsis. On arrival here the patient is awake and alert but does seem somewhat confused. He complains of pain in the right lower leg. He states the pain is no worse than it was yesterday. On arrival patient profusely diaphoretic. On examination patient is a well-developed obese male in no acute distress. He is alert and answers questions but unsure of the validity of his answers. He states he was in the hospital for 7 days but on reviewing the records he was apparently only here for about 3 days. Patient is diaphoretic. No cyanosis. Breath sounds are equal bilaterally. Heart regular with a mild tachycardia. Abdomen soft and nontender. There is marked swelling of the entire right lower extremity with intense erythema from the knee down to the toes. Pulses are present. Some areas of vesicle formation and leakage and skin breakdown. Labs reviewed. The hospitalist, Dr. Aragon, was consulted and accepted admission of the patient.
[2016-11-15 05:05] LABS: Hematocrit 35.9 % (37.5-50.1); Hemoglobin 11.2 g/dL (12.9-16.9); Mean Corpuscular HGB Conc 31.2 g/dL (31.6-35.5); Mean Corpuscular Hemoglobin 28.4 pg (28.0-33.3); Mean Corpuscular Volume 90.9 fL (83.0-100.0); Mean Platelet Volume 9.8 fL (9.4-12.4); Platelet Count 484 K/mcL (140-400); Red Blood Count 3.95 M/mcL (4.19-5.50); Red Cell Distribution Width 15.4 % (11.5-14.5)
[2016-11-15 05:13] LABS: INR 1.2; Prothrombin Time 13.1 Seconds (9.4-12.1)
[2016-11-15 05:15] LABS: Activated Partial Thrombo Time 30.8 Seconds (26.0-36.0); Albumin 2.2 g/dL (3.5-5.0); Albumin/Globulin Ratio 0.4 (1.1-2.2); Bilirubin,Direct 0.9 mg/dL (0.0-0.5); Bilirubin,Indirect 0.3 mg/dL (0.0-1.2); Bilirubin,Total 1.2 mg/dL (0.2-1.2); Calcium 8.6 mg/dL (8.6-10.8); Globulin 5.1 g/dL (2.4-3.5); Magnesium 1.5 mg/dL (1.6-2.6); Potassium 4.9 mEq/L (3.5-4.5); Total Protein 7.3 g/dL (6.0-8.3)
[2016-11-15] MEDS ORDERED: 0.9 % Sodium Chloride 1,000 ML ONE (05:25)
[2016-11-15 05:32] LABS: Basophils # 0.3 K/mcL (0.0-0.2); Eosinophils # 0.6 K/mcL (0.0-0.6); Lymphocytes # 4.2 K/mcL (0.6-4.6); Neutrophils # 6.7 K/mcL (1.6-8.9)
[2016-11-15 05:33] LABS: Polychromasia 1+ (Not Present); Reactive Lymphocytes Present (Not Present)
[2016-11-15] MEDS ORDERED: 0.9 % Sodium Chloride 1,000 ML IVC ONE (05:42)
[2016-11-15] MEDS ORDERED: Piperacillin/Tazobactam 3.375 GM in D5% in Water (Mini-Bag+) 100 ML IVPB ONE (06:07)
[2016-11-15] MEDS ORDERED: Vancomycin 2,000 MG in D5% in Water 250 ML IVPB ONE (06:07)
[2016-11-15] MEDS ORDERED: Levofloxacin 750 MG/150 ML 750 MG/150 ML BAG IVPB ONE (06:07)
[2016-11-15] MEDS: 0.9 % Sodium Chloride 1,000 ML IVC SCH ×2 (07:16→17:38)
--- NOTE | 2016-11-15 08:25 | Internal Med History&Physical ---
Date of Encounter: 11/15/16 Time of Encounter: 08:20 Assessment and Plan (1) Sepsis affecting skin Current visit: No Status: Acute Sepsis secondary to combination of healthcare associated pneumonia present upon admission in combination with right lower extremity cellulitis/Streptococcus group C sensitive to penicillin Restart Unasyn 3 g every 6 hours Continue vancomycin and cefepime for possible healthcare associated pneumonia Order blood cultures and wound cultures, consider reimaging if worse masseter surgery consult Continue IV fluids (2) Cellulitis of lower extremity Current visit: Yes Status: Acute Qualifiers: Laterality: right Qualified Code(s): L03.115 - Cellulitis of right lower limb (3) HCAP (healthcare-associated pneumonia) Current visit: Yes Status: Acute (4) Acute and chronic respiratory failure with hypoxia Current visit: No Status: Acute Continue oxygen therapy (5) Diabetes mellitus with nephropathy Current visit: No Status: Chronic (6) Morbid obesity with BMI of 40.0-44.9, adult Current visit: No Status: Chronic (7) Acute kidney injury Current visit: Yes Status: Acute Acute on chronic renal failure with chronic kidney disease stage III Continue IV fluids, hold metformin, lisinopril and decreased dose of Neurontin Hold potassium High risk due to sepsis Internal Medicine - H&P: HPI Chief complaint: Fever Admitted From: Emergency Dept History of present illness: Mr. Cormier is a 61 year old male with a past medical history of diabetes type 2 refusing to use insulin, GERD, CK D3, recently discharged from the hospital on 11/14/2016. During his last hospitalization he was being treated for right lower extremity cellulitis with 2 cultures that were positive for Streptococcus group C sensitive to penicillin. He was being treated with Unasyn, prior to that he was given vancomycin and Zosyn that was switched to cefepime. The day before his admission patient insisted on being discharged and threatened to leave and go home, we discussed the possibility to send him to a facility as he needed assistance with his leg. At that facility, the patient developed fever of apparently 102.8. Presented with altered mental status but also he has a history of schizophrenia, bipolar disorder, depression and PTSD. The right lower extremity anterior area appears slightly better but the lateral side appears more erythematosus. He says that the leg pain has improved since yesterday but his entire extremity below the knee is erythematosus, swollen and having yellowish crusts in several spots. Patient denies any chest pain, no abdominal pain, no dysuria. His creatinine has increased again from 1.02 up to 1.85, white blood cell count was 14 in heart rate was 113. He accepted to be hospitalized this time. Has been bringing up minimal phlegm, chest x-ray shows vascular congestion/pulmonary edema that may be acute in the left lower lobe infiltrate/possible pneumonia. He was started on vancomycin, Zosyn and Levaquin in the emergency room During his last hospitalization he had a CT scan of the right lower extremity that did not show any drainable collection Past Med Surg Social Fam HX - Past Medical History Medical history: arthritis, COPD (Not oxygen dependent), diabetes (Has a hemoglobin A1c of 8.9, refusing insulin), hyperlipidemia, hypertension, osteoporosis, renal disease (Chronic kidney disease stage III), venous stasis, other (Chronic back pain, streptococcus group C cellulitis in the right lower extremity) Psychiatric history: anxiety, bipolar, depression, PTSD, schizophrenia - Past Surgical History Surgical History: appendectomy, cataract, other (Echocardiogram from October 2016 shows an ejection fraction of 65% with no other abnormalities ) - Social History Smoking Status: Current every day smoker (Hospital pack per day) Smokeless Tobacco Status: No Alcohol use: none Drug use: marijuana (Sometimes) - Additional Family History Additional family history: Father with CAD and mother with Alzheimer's Internal Medicine - H&P: Meds Metformin [Glucophage] 1,000 mg PO BIDWM 08/01/15 [History] Furosemide [Lasix] 20 mg PO BID 12/17/15 [History] Amitriptyline HCl 100 mg PO HS 11/09/16 [History] Benztropine Mesylate 2 mg PO BID 11/09/16 [History] HydrOXYzine Pamoate 25 mg PO BID PRN 11/09/16 [History] Lisinopril 2.5 mg PO DAILY 11/09/16 [History] Potassium Chloride [K-Tab ER] 10 meq PO BID 11/09/16 [History] Simvastatin [Zocor] 20 mg PO HS 11/09/16 [History] Gabapentin [Neurontin] 1,600 mg PO BID 11/12/16 [History] Gabapentin [Neurontin] 400 mg PO 1300 11/12/16 [History] Pantoprazole Sodium [Protonix] 40 mg PO DAILY 11/12/16 [History] Amoxicillin/Potassium Clav [Augmentin Xr 1,000-62.5 Tab] 1 each PO BID #20 tab.er.12h 11/14/16 [Rx] Diazepam [Valium] 5 mg PO TID #30 tablet 11/14/16 [Rx] Metoprolol XL (24 HR) Succ [Toprol Xl] 25 mg PO DAILY #30 tab.er.24h 11/14/16 [ Rx] Oxcarbazepine 300 mg PO BID #60 tablet 11/14/16 [Rx] OxyCODONE Immed Rel [Roxicodone 5 MG] 10 mg PO Q6HR PRN #20 tablet 11/14/16 [Rx] Allergies aspirin Allergy (Verified 10/22/16 20:35) Rash codeine Allergy (Verified 10/22/16 20:35) Rash iodine Allergy (Verified 10/22/16 20:35) See Comments All Systems PM: A 10-system review of systems was performed and is negative for pertinent findings except as documented above in the HPI. Review of systems: No abdominal pain, no dysuria. Other systems out of the Ten reviewed were negative. Pain in the right lower extremity persists - Constitutional Vitals: Temp Pulse Resp BP Pulse Ox 98.4 F 100 18 111/73 94 L 11/15/16 04:46 11/15/16 06:03 11/15/16 07:33 11/15/16 07:33 11/15/16 06:03 General appearance: Present: A&O X 3, morbidly obese - Head Head exam: Present: atraumatic, normocephalic - Eye Eye exam: Present: PERRL, conjuntiva pink, sclera anicteric Pupils: Present: PERRL - Neck Neck exam general surgery: Present: supple, trachea midline. Absent: lymphadenopathy - Respiratory Respiratory exam: Present: decreased breath sounds, CTAB, rales (Left basilar crackles). Absent: accessory muscle use, rhonchi, wheezes - Cardiovascular Cardiovascular exam: Present: RRR, +S1, +S2. Absent: diastolic murmur, gallop, rubs, systolic murmur - GI/Abdominal GI/Abdominal exam: Present: normal bowel sounds, soft, no peritoneal signs. Absent: distended, tenderness - Extremities Exam Extremities exam: Present: pedal edema (+3 pitting edema in the right lower extremity, very erythematous below the knee with yellowish crusts, warm and tender to touch, plantar ulcers that appeared chronic), warm, radial pulses palpable and symetrical. Absent: calf tenderness, cyanotic - Neurological Exam Neurological exam: Present: CN II-XII intact, oriented X3, no focal deficits. Absent: pronater drift, facial droop, speech deficit - Skin Skin exam: Present: dry, intact Internal Med - H&P Results - Labs CBC & Chem 7: 11/15/16 04:50 11/15/16 04:50
[2016-11-15] MEDS ORDERED: Dextrose Gel 15 GM PO PRN ×2 (08:36)
[2016-11-15] MEDS ORDERED: Acetaminophen 325 MG TABLET PO PRN (08:36)
[2016-11-15] MEDS ORDERED: Naloxone 0.4 MG/ML INJ IVP PRN (08:36)
[2016-11-15] MEDS ORDERED: *HR* Dextrose 50 % in Water (Syg) 50 ML SYRINGE IVP PRN (08:36)
[2016-11-15] MEDS ORDERED: D5% in Water 1,000 ML IV PRN (08:36)
[2016-11-15] MEDS ORDERED: Cefepime HCl 1,000 MG in D5% in Water (Mini-Bag+) 100 ML IVPB SCH (08:39)
[2016-11-15] MEDS ORDERED: Ampicillin/Sulbactam 3,000 MG in 0.9 % Sodium Chloride Mini Bag 100 ML IVPB SCH (08:40)
[2016-11-15] MEDS ORDERED: Vancomycin (wt based) 1,000 MG VIAL IVPB SCH (09:00)
[2016-11-15] MEDS: Metoprolol XL (24 HR) Succ 25 MG TAB.ER.24H PO SCH (10:34)
[2016-11-15] MEDS: Gabapentin 300 MG CAPSULE PO SCH ×3 (10:34→20:24)
[2016-11-15] MEDS: diazePAM 5 MG TABLET PO SCH ×3 (10:34→20:24)
[2016-11-15] MEDS: Famotidine 20 MG TABLET PO SCH ×2 (10:34→20:24)
[2016-11-15] MEDS: Nicotine 21 MG PATCH.TD24 TD SCH (10:45)
[2016-11-15] MEDS: Insulin LISPRO 300 UNITS/3 ML VIAL SQ SCH ×3 (11:51→20:41)
[2016-11-15] MEDS: *HR* OxyCODONE Immed Rel 5 MG TABLET PO PRN (12:05)
--- NOTE | 2016-11-15 13:15 | Electrocardiograph Report ---
[place] [id number] Test Date: 2016-11-15 Pat Name: Karan Cormier Department: 104 Room: [facility] Gender: M Bagging Machine Operator: : [id number] Requested By: Sivakumar Davila Order Number: [id number] Reading MD: Ismael Calabrese Measurements Intervals [place] Rate: 112 P: 67 DC: 188 QRS: 10 QRSD: 134 T: 59 QT: 328 QTc: 394 Interpretive Statements SINUS TACHYCARDIA INTRAVENTRICULAR CONDUCTION DELAY Electronically Signed On 11-15-2016 13:13:32 EDT by Ismael Calabrese
[2016-11-15] MEDS: Ampicillin/Sulbactam 3,000 MG in 0.9 % Sodium Chloride Mini Bag 100 ML IVPB SCH ×2 (16:32→22:54)
[2016-11-15] MEDS: Cefepime HCl 1,000 MG in D5% in Water (Mini-Bag+) 100 ML IVPB SCH (17:37)
[2016-11-16] MEDS: Cefepime HCl 1,000 MG in D5% in Water (Mini-Bag+) 100 ML IVPB SCH ×3 (01:38→17:29)
[2016-11-16] MEDS: *HR* OxyCODONE Immed Rel 5 MG TABLET PO PRN ×3 (03:20→20:57)
[2016-11-16] MEDS: Ampicillin/Sulbactam 3,000 MG in 0.9 % Sodium Chloride Mini Bag 100 ML IVPB SCH ×4 (04:12→22:30)
[2016-11-16 04:16] LABS: Hemoglobin 10.1 g/dL (12.9-16.9); Lymphocytes # 2.5 K/mcL (0.6-4.6); Lymphocytes % 18.2 %; Mean Corpuscular HGB Conc 30.6 g/dL (31.6-35.5); Mean Corpuscular Volume 91.4 fL (83.0-100.0); Platelet Count 480 K/mcL (140-400); Red Blood Count 3.61 M/mcL (4.19-5.50); Red Cell Distribution Width 14.9 % (11.5-14.5)
[2016-11-16 04:30] LABS: BUN/Creatinine Ratio 15 (6-26); Blood Urea Nitrogen 15 mg/dL (8-26); Calcium 8.1 mg/dL (8.6-10.8); Carbon Dioxide 25 mEq/L (19-29); Chloride 98 mEq/L (98-109); Glucose 224 mg/dL (70-99); Osmolality,Calculated 286 (280-300); Potassium 4.2 mEq/L (3.5-4.5); Sodium 134 mEq/L (136-145); eGFR For African Americans > 60 (> 60); eGFR For Non-African Americans > 60 (> 60)
[2016-11-16 05:26] LABS: Band Neutrophils % 9.1 % (0-4); Eosinophils # 0.8 K/mcL (0.0-0.6); Eosinophils % 5.5 %; Metamyelocytes % 1.8 % (0); Monocytes # 1.5 K/mcL (0.0-1.3); Monocytes % 10.9 %; Neutrophils # 8.7 K/mcL (1.6-8.9); Segmented Neutrophils % 54.5 %
[2016-11-16 05:30] LABS: Platelet Estimate Normal (Normal)
[2016-11-16 05:31] LABS: Anisocytosis 1+ (Not Present)
[2016-11-16] MEDS ORDERED: Vancomycin 1,750 MG in D5% in Water 500 ML IVPB SCH (06:00)
[2016-11-16 08:12] LABS: Bilirubin,Urine Negative (Negative); Blood,Urine Trace (Negative); Clarity,Urine Cloudy (Clear); Color,Urine Yellow (Yellow); Glucose,Urine (UA) 500 mg/dL (Normal); Ketones,Urine Negative (Negative); Leukocyte Esterase,Urine Negative (Negative); Nitrite,Urine Negative (Negative); Protein,Urine Trace mg/dL (Neg-Trace); Specific Gravity,Urine 1.013 (1.010-1.025); Urobilinogen,Urine Normal (Normal)
[2016-11-16 08:15] LABS: Bacteria,Urine None Seen per hpf (None-Few); Hyaline Casts,Urine None Seen per lpf (None-Few); RBC,Urine 0-3 per hpf (0-3); Squamous Epithelial Cell,Urine Moderate per lpf (None-Few); WBC,Urine 0-3 per hpf (0-3)
[2016-11-16] MEDS: Metoprolol XL (24 HR) Succ 25 MG TAB.ER.24H PO SCH (10:32)
[2016-11-16] MEDS: Famotidine 20 MG TABLET PO SCH (10:32)
[2016-11-16] MEDS: Nicotine 21 MG PATCH.TD24 TD SCH (10:32)
[2016-11-16] MEDS: diazePAM 5 MG TABLET PO SCH ×3 (10:32→20:57)
[2016-11-16] MEDS: Gabapentin 300 MG CAPSULE PO SCH ×3 (10:32→20:58)
[2016-11-16] MEDS: 0.9 % Sodium Chloride 1,000 ML IVC SCH (10:38)
[2016-11-16] MEDS: Insulin LISPRO 300 UNITS/3 ML VIAL SQ SCH ×4 (10:41→21:10)
--- NOTE | 2016-11-16 10:55 | Internal Med Progress Note ---
Date of Encounter: 11/16/16 Time of Encounter: 10:53 - Assessment and plan (1) Sepsis affecting skin Current Visit: No Status: Acute Assessment and plan: Sepsis secondary to combination of healthcare associated pneumonia present upon admission in combination with right lower extremity cellulitis/Streptococcus group C sensitive to penicillin WBC improving , no fever anymore Continue Unasyn 3 g every 6 hours day 2 Continue vancomycin and cefepime for possible healthcare associated pneumonia day 2 Order blood cultures and wound cultures, consider reimaging if worse masseter surgery consult Continue IV fluids (2) Cellulitis of lower extremity Current Visit: Yes Status: Acute Qualifiers: Laterality: right Qualified Code(s): L03.115 - Cellulitis of right lower limb (3) HCAP (healthcare-associated pneumonia) Current Visit: Yes Status: Acute (4) Acute and chronic respiratory failure with hypoxia Current Visit: No Status: Acute Assessment and plan: Continue oxygen therapy (5) Diabetes mellitus with nephropathy Current Visit: No Status: Chronic Assessment and plan: ISS , resume metformin (6) Morbid obesity with BMI of 40.0-44.9, adult Current Visit: No Status: Chronic (7) Acute kidney injury Current Visit: Yes Status: Acute Assessment and plan: improving continue IVF - Subjective Interval history: Patient is very conscious about leaving the hospital, is constantly saying that he needs his glasses and found to be returned. Complains of persistent pain in the right lower extremity, denies any chest pain, shortness of breath, no abdominal pain, no dysuria, no diarrhea - Constitutional Vitals: Temp Pulse Resp BP Pulse Ox 98.8 F 112 20 149/89 95 11/16/16 08:08 11/16/16 08:08 11/16/16 08:08 11/16/16 08:08 11/16/16 08:08 General appearance: Present: A&O X 3, morbidly obese - Head Head exam: Present: atraumatic, normocephalic - Eye Eye exam: Present: PERRL, conjuntiva pink, sclera anicteric Pupils: Present: PERRL - Neck Neck exam general surgery: Present: supple, trachea midline. Absent: lymphadenopathy - Respiratory Respiratory exam: Present: decreased breath sounds, CTAB. Absent: accessory muscle use, rales, rhonchi, wheezes - Cardiovascular Cardiovascular exam: Present: RRR, +S1, +S2. Absent: diastolic murmur, gallop, rubs, systolic murmur - GI/Abdominal GI/Abdominal exam: Present: normal bowel sounds, soft, no peritoneal signs. Absent: distended, tenderness - Extremities Exam Extremities exam: Present: pedal edema (right lower extremity severe erythema and edema below the knee , blisters and pain are improving), warm, radial pulses palpable and symetrical. Absent: calf tenderness, cyanotic - Neurological Exam Neurological exam: Present: CN II-XII intact, oriented X3, no focal deficits. Absent: pronater drift, facial droop, speech deficit - Skin Skin exam: Present: dry, intact Internal Medicine: Result - Labs CBC & Chem 7: 11/16/16 03:37 11/16/16 03:37 Labs: Short CBC 11/16/16 Range/Units 03:37 WBC 13.7 H (4.3-11.1) K/mcL Hgb 10.1 L (12.9-16.9) g/dL Hct 33.0 L (37.5-50.1) % Plt Count 480 H (140-400) K/mcL Neutrophils # 8.7 (1.6-8.9) K/mcL BMP 11/16/16 03:37 Sodium 134 L Potassium 4.2 Chloride 98 Carbon Dioxide 25 BUN 15 D Creatinine 1.00 Glucose 224 H Calcium 8.1 L Urine 11/16/16 Range/Units 08:00 Urine Color Yellow (Yellow) Urine Clarity Cloudy A (Clear) Urine pH 6.0 (5.0-8.0) pH Units Ur Specific [place] 1.013 (1.010-1.025) Urine Protein Trace (Neg-Trace) mg/dL Urine Glucose (UA) 500 H (Normal) mg/dL - ABG Interpretation ABG results: PT/INR, D-dimer PT 13.1 Seconds (9.4-12.1) H 11/15/16 04:50 Consult Discharge Plan - Plan Referrals: Alena Salinas DO [Primary Care Provider] -
[2016-11-16] MEDS: Miconazole 2% ointment 114 GM TUBE TP SCH (12:43)
[2016-11-16] MEDS: *HR* Metformin 500 MG TABLET PO SCH (17:27)
[2016-11-16] MEDS: OXcarbazepine 150 MG TABLET PO SCH (20:57)
[2016-11-16] MEDS: Magnesium Oxide 400 MG TABLET PO SCH (20:57)
[2016-11-17] MEDS ORDERED: *HR* LORazepam 2 MG/ML VIAL IVP ONE (01:01)
[2016-11-17] MEDS: Cefepime HCl 1,000 MG in D5% in Water (Mini-Bag+) 100 ML IVPB SCH ×3 (01:22→18:05)
[2016-11-17] MEDS: Ampicillin/Sulbactam 3,000 MG in 0.9 % Sodium Chloride Mini Bag 100 ML IVPB SCH ×3 (03:48→18:13)
[2016-11-17 04:53] LABS: Hematocrit 29.5 % (37.5-50.1); Hemoglobin 9.5 g/dL (12.9-16.9); Mean Corpuscular HGB Conc 32.2 g/dL (31.6-35.5); Mean Corpuscular Hemoglobin 29.2 pg (28.0-33.3); Mean Corpuscular Volume 90.8 fL (83.0-100.0); Platelet Count 474 K/mcL (140-400); Red Blood Count 3.25 M/mcL (4.19-5.50); Red Cell Distribution Width 15.1 % (11.5-14.5)
[2016-11-17 05:07] LABS: BUN/Creatinine Ratio 11 (6-26); Blood Urea Nitrogen 9 mg/dL (8-26); Calcium 8.5 mg/dL (8.6-10.8); Carbon Dioxide 32 mEq/L (19-29); Chloride 100 mEq/L (98-109); Glucose 226 mg/dL (70-99); Osmolality,Calculated 292 (280-300); Potassium 4.3 mEq/L (3.5-4.5); Sodium 138 mEq/L (136-145); eGFR For African Americans > 60 (> 60); eGFR For Non-African Americans > 60 (> 60)
[2016-11-17] MEDS: Vancomycin 1,750 MG in D5% in Water 500 ML IVPB SCH ×2 (06:02→22:26)
[2016-11-17] MEDS: *HR* Metformin 500 MG TABLET PO SCH ×2 (09:05→18:03)
[2016-11-17] MEDS: OXcarbazepine 150 MG TABLET PO SCH ×2 (09:05→20:56)
[2016-11-17] MEDS: Gabapentin 300 MG CAPSULE PO SCH ×3 (09:05→22:26)
[2016-11-17] MEDS: Metoprolol XL (24 HR) Succ 25 MG TAB.ER.24H PO SCH (09:05)
[2016-11-17] MEDS: Magnesium Oxide 400 MG TABLET PO SCH ×2 (09:05→20:56)
[2016-11-17] MEDS: diazePAM 5 MG TABLET PO SCH ×3 (09:05→22:26)
[2016-11-17] MEDS: Nicotine 21 MG PATCH.TD24 TD SCH (09:06)
[2016-11-17] MEDS: Insulin LISPRO 300 UNITS/3 ML VIAL SQ SCH ×4 (09:06→22:00)
[2016-11-17] MEDS: Miconazole 2% ointment 114 GM TUBE TP SCH (09:07)
[2016-11-17] MEDS: *HR* OxyCODONE Immed Rel 5 MG TABLET PO PRN ×2 (09:14→22:00)
--- NOTE | 2016-11-17 12:09 | Venous Imaging Report ---
LE Venous Duplex Patient Name:Karan Cormier Order Number:[id number] Procedure Date:11/16/2016 Date:1955ge:61 yrs Gender:Male Location:[facility] Room #: 2NE18 Strip Machine Tender:Rachel Scott RDCS Referring MD:Rigo Barakat MD custom car builder:DO Gil Machuca MD:Clinton Doyle MD Primary Indications:Edema Secondary Indications: Impressions: Normal right lower extremity deep and superficial venous exam. Recommendations: Preliminary given to pt RN. Findings Venous Duplex Results: Right: Venous imaging of the lower extremity reveals full patency and normal vessel compressibility of the right distal iliac, right common femoral, right superficial femoral, right popliteal, right posterior tibial, right peroneal, right great saphenous and right lesser saphenous. Doppler signals in the evaluated veins were normal. Prior Study: No change compared to prior study dated: 05/14/2016. Lower Extremity Venous Duplex Side Vein Compress Spontaneous Flow Augment Diameter (cm) Depth (cm) Right Distal Iliac Normal Yes Phasic Yes Right Common Femoral Normal Yes Phasic Yes Right Superficial Femoral Normal Yes Phasic Yes Right Popliteal Normal Yes Phasic Yes Right Posterior Tibial Normal Yes Phasic Yes Right Peroneal Normal Yes Phasic Yes Right Great Saphenous Normal Yes Phasic Yes Right Lesser Saphenous Normal Yes Phasic Yes Updated by Clinton Doyle MD on 11/17/2016 12:04:22 PM electronically signed on 11/17/2016 12:06:11 PM with status of Final
--- NOTE | 2016-11-17 18:46 | Internal Med Progress Note ---
Date of Encounter: 11/17/16 Time of Encounter: 11:00 - Assessment and plan (1) Cellulitis of right lower leg Current Visit: No Status: Acute Assessment and plan: I will stop Unasyn. He is currently receiving cefepime and vancomycin and this should be more than adequate coverage for group C streptococcus which he grew in the wound. Will follow up cultures. (2) Morbid obesity with BMI of 40.0-44.9, adult Current Visit: No Status: Chronic Assessment and plan: Outpatient weight loss regimen. (3) Acute and chronic respiratory failure with hypoxia Current Visit: No Status: Acute Assessment and plan: Continue oxygen therapy (4) DM type 2 with diabetic peripheral neuropathy Current Visit: No Status: Chronic Assessment and plan: Insulin sliding scale. (5) HCAP (healthcare-associated pneumonia) Current Visit: Yes Status: Acute Assessment and plan: Cefepime and vancomycin. Follow-up blood cultures. Sputum culture if available. He is at high risk for morbidity and complications due to treatment with IV vancomycin which requires blood level monitoring for toxicity. - Subjective Interval history: Patient cannot provide history due to encephalopathy and poor baseline mental status secondary to schizophrenia and sedation. He has been admitted for worsening lower extremity swelling and pain. He is being treated for cellulitis and sepsis. - Constitutional Vitals: Temp Pulse Resp BP Pulse Ox 98.3 F 85 18 151/98 95 11/17/16 17:30 11/17/16 11:10 11/17/16 17:30 11/17/16 17:30 11/17/16 06:36 General appearance: Present: A&O X 3, morbidly obese - Respiratory Respiratory exam: Present: CTAB. Absent: accessory muscle use, rales, rhonchi, wheezes - GI/Abdominal GI/Abdominal exam: Present: normal bowel sounds, soft, no peritoneal signs. Absent: distended, tenderness - Extremities Exam Extremities exam: Present: pedal edema, warm, radial pulses palpable and symetrical. Absent: calf tenderness, cyanotic - Neurological Exam Neurological exam: Present: CN II-XII intact, oriented X3, no focal deficits. Absent: pronater drift, facial droop, speech deficit - Skin Additional comments: Right lower extremity skin redness and swelling , Internal Medicine: Result - Labs CBC & Chem 7: 11/17/16 04:34 11/17/16 04:34 Labs: Short CBC 11/17/16 Range/Units 04:34 WBC 11.7 H (4.3-11.1) K/mcL Hgb 9.5 L (12.9-16.9) g/dL Hct 29.5 L (37.5-50.1) % Plt Count 474 H (140-400) K/mcL BMP 11/17/16 04:34 Sodium 138 Potassium 4.3 Chloride 100 Carbon Dioxide 32 H BUN 9 Creatinine 0.85 Glucose 226 H Calcium 8.5 L - ABG Interpretation ABG results: PT/INR, D-dimer PT 13.1 Seconds (9.4-12.1) H 11/15/16 04:50 Consult Discharge Plan - Plan Referrals: Alena Salinas DO [Primary Care Provider] -
[2016-11-17 23:05] LABS: Bilirubin,Urine Negative (Negative); Blood,Urine Small (Negative); Clarity,Urine Cloudy (Clear); Color,Urine Yellow (Yellow); Glucose,Urine (UA) 100 mg/dL (Normal); Ketones,Urine Negative (Negative); Leukocyte Esterase,Urine Negative (Negative); Nitrite,Urine Negative (Negative); Protein,Urine 30 mg/dL (Neg-Trace); Urobilinogen,Urine Normal (Normal)
[2016-11-17 23:11] LABS: Bacteria,Urine None Seen per hpf (None-Few); Hyaline Casts,Urine None Seen per lpf (None-Few); RBC,Urine 0-3 per hpf (0-3); Squamous Epithelial Cell,Urine Many per lpf (None-Few)
[2016-11-18] MEDS: Cefepime HCl 1,000 MG in D5% in Water (Mini-Bag+) 100 ML IVPB SCH ×2 (01:43→11:23)
[2016-11-18 05:37] LABS: Basophils # 0.1 K/mcL (0.0-0.2); Basophils % 0.6 %; Eosinophils # 0.3 K/mcL (0.0-0.6); Eosinophils % 2.3 %; Hematocrit 31.4 % (37.5-50.1); Hemoglobin 9.7 g/dL (12.9-16.9); Immature Granulocytes % 4.9 % (0-4); Lymphocytes # 2.7 K/mcL (0.6-4.6); Lymphocytes % 22.5 %; Mean Corpuscular HGB Conc 30.9 g/dL (31.6-35.5); Mean Corpuscular Hemoglobin 27.8 pg (28.0-33.3); Mean Platelet Volume 9.8 fL (9.4-12.4); Monocytes # 1.2 K/mcL (0.0-1.3); Monocytes % 9.8 %; Neutrophils # 7.1 K/mcL (1.6-8.9); Platelet Count 514 K/mcL (140-400); Red Blood Count 3.49 M/mcL (4.19-5.50); Red Cell Distribution Width 15.1 % (11.5-14.5); Segmented Neutrophils % 59.9 %
[2016-11-18] MEDS ORDERED: Vancomycin 1,750 MG in D5% in Water 500 ML IVPB SCH (11:00)
[2016-11-18] MEDS: Nicotine 21 MG PATCH.TD24 TD SCH (11:20)
[2016-11-18] MEDS: *HR* OxyCODONE Immed Rel 5 MG TABLET PO PRN ×2 (11:21→18:40)
[2016-11-18] MEDS: Magnesium Oxide 400 MG TABLET PO SCH ×2 (11:22→23:01)
[2016-11-18] MEDS: diazePAM 5 MG TABLET PO SCH ×3 (11:22→23:02)
[2016-11-18] MEDS: Metoprolol XL (24 HR) Succ 25 MG TAB.ER.24H PO SCH (11:22)
[2016-11-18] MEDS: Gabapentin 300 MG CAPSULE PO SCH ×3 (11:22→23:03)
[2016-11-18] MEDS: *HR* Metformin 500 MG TABLET PO SCH ×2 (11:22→18:40)
[2016-11-18] MEDS: Insulin LISPRO 300 UNITS/3 ML VIAL SQ SCH ×4 (11:43→23:02)
[2016-11-18] MEDS: OXcarbazepine 150 MG TABLET PO SCH ×2 (11:44→22:59)
[2016-11-18] MEDS: Miconazole 2% ointment 114 GM TUBE TP SCH (11:45)
--- NOTE | 2016-11-18 17:00 | Podiatry Consult Note ---
Date of Encounter: 11/18/16 Time of Encounter: 16:30 Assessment and Plan (1) Cellulitis of right lower leg Current visit: No Status: Acute Cellulitis of the RLE and foot appears to be secondary to a tinea infection. Agree with present antibiotic therapy to cover group C strep and recommend the addition of Diflucan 200 mg IV daily. WBC 11.9 and a febrile. Increase dressing changes to BID to absorb drainage and allow the bullous lesions to dry up. Patient was being treated for an ulceration to the medial aspect of the 1st MTPJ right foot by Dr. Velazco in June of 2016. Patient did not follow back up and there is a hemmorhaged callused lesion to the medial aspect of the 1st MTPJ noted today. Will perform a bedside debridement of callused lesion tomorrow. CT of RLE did not show any fluid collection or abscess. Venous duplex of RLE was with in normal limits. Will continue to monitor patient closely. Consulted with Dr. France and agreeable to plan of care. History of Present Illness HPI: Mr. Cormier is a 61 year old male admitted to [place] on 11/15/16 for worsening right lower extremity swelling and pain. Podiatry was consulted to evaluate cellulitis of RLE. Patient was initially seen in the Urgent Care for Cellulitis of the RLE on 11/09/16 and was started on Bactrim DS. Patient presented to the ED on 11/11/16 for failed outpatient treatment of cellulitis and was admitted. Wound Cultures were obtained from the RLE on 11/12/16 and isolated Group C Strep. Patient was then discharged to [place] and was readmitted on 11/15/16 for a fever. Patient is currently receiving Vancomycin and Cefepime. Miconazole is being applied to RLE with dressings. CT of the RLE on 11/11/16 and negative for any fluid collection or abscess. Repeat wound cultures did not isolate any pathogens. Venous duplex of RLE performed on and with in normal limits. Patient rates RLE pain at a "20 out of 10". Patient does have a medical history significant for DM with neuropathy, bipolar and schizophrenia. He states his blood sugars have been high and states he takes his medication when he can. Patient states he thinks the redness and swelling of the RLE started a few months ago. He denies any injury or trauma. Patient was treated in May of 2016 for an ulcer to the right foot by Dr. France and referred to Dr. Velazco in wound care. Patient was last seen in wound care by Dr. Velazco in June of 2016. According to the last wound care note patient was suppose to follow up back and have serial debridements of an ulceration the medial aspect of the right foot at the 1st MTPJ. Patient did not follow back up. No c/o cp or sob. Past Med Surg Social Fam HX - Past Medical History Medical history: arthritis, COPD, diabetes, hyperlipidemia, hypertension, osteoporosis, renal disease, venous stasis, other Psychiatric history: anxiety, bipolar, depression, PTSD, schizophrenia - Past Surgical History Surgical History: appendectomy, cataract, other - Social History Smoking Status: Current every day smoker Smokeless Tobacco Status: No Alcohol use: none Drug use: none Medications and Allergies Metformin [Glucophage] 1,000 mg PO BIDWM 08/01/15 [History] Furosemide [Lasix] 20 mg PO BID 12/17/15 [History] Amitriptyline HCl 100 mg PO HS 11/09/16 [History] Benztropine Mesylate 2 mg PO BID 11/09/16 [History] HydrOXYzine Pamoate 25 mg PO BID PRN 11/09/16 [History] Lisinopril 2.5 mg PO DAILY 11/09/16 [History] Potassium Chloride [K-Tab ER] 10 meq PO BID 11/09/16 [History] Simvastatin [Zocor] 20 mg PO HS 11/09/16 [History] Gabapentin [Neurontin] 1,600 mg PO BID 11/12/16 [History] Gabapentin [Neurontin] 400 mg PO 1300 11/12/16 [History] Pantoprazole Sodium [Protonix] 40 mg PO DAILY 11/12/16 [History] Diazepam [Valium] 5 mg PO TID #30 tablet 11/14/16 [Rx] Metoprolol XL (24 HR) Succ [Toprol Xl] 25 mg PO DAILY #30 tab.er.24h 11/14/16 [ Rx] Oxcarbazepine 300 mg PO BID #60 tablet 11/14/16 [Rx] OxyCODONE Immed Rel [Roxicodone 5 MG] 10 mg PO Q6HR PRN #20 tablet 11/14/16 [Rx] Amoxicillin/Potassium Clav [Augmentin Xr 1,000-62.5 Tab] 1 tab PO BID 11/15/16 [ History] Allergies aspirin Allergy (Verified 10/22/16 20:35) Rash codeine Allergy (Verified 10/22/16 20:35) Rash iodine Allergy (Verified 10/22/16 20:35) See Comments All Systems Reviewed: A 10-system review of systems was performed and is negative for pertinent findings except as documented above in the HPI. Physical Exam - Constitutional Vitals: Temp Pulse Resp BP Pulse Ox 98.9 F 88 18 127/74 98 11/18/16 15:25 11/18/16 15:25 11/18/16 15:25 11/18/16 07:30 11/18/16 15:25 Exam: General: A&O x3, calm and cooperative. Vascular: pedal pulses 1+/4, CFT is immediate to digits #1 through #5 bilaterally. Neurological: Decreased sensation to light touch. Integument: RLE and right foot is globally erythematous and edematous. White bullous lesions to the lateral aspect of the right foot ascending to the right lateral and posterior leg with serous drainage. Skin is warm to touch. Hemmorhaged callused lesion to the medial aspect of the 1st MTPJ right foot. Toe nails #1 through #5 right, #2 through #5 left are thick, elongated, and mycotic. history of left great toe amputation. Results - Labs Result Diagrams: 11/19/16 06:01 11/19/16 06:01 Labs: Abnormal lab results WBC 11.9 K/mcL (4.3-11.1) H 11/18/16 05:14 RBC 3.49 M/mcL (4.19-5.50) L 11/18/16 05:14 Hgb 9.7 g/dL (12.9-16.9) L 11/18/16 05:14 Hct 31.4 % (37.5-50.1) L 11/18/16 05:14 MCH 27.8 pg (28.0-33.3) L 11/18/16 05:14 MCHC 30.9 g/dL (31.6-35.5) L 11/18/16 05:14 RDW 15.1 % (11.5-14.5) H 11/18/16 05:14 Plt Count 514 K/mcL (140-400) H 11/18/16 05:14 Immature Gran % 4.9 % (0-4) H 11/18/16 05:14 Band Neutrophils % 9.1 % (0-4) H 11/16/16 03:37 Metamyelocytes % 1.8 % (0) H 11/16/16 03:37 Reactive Lymphocytes Present (Not Present) A 11/15/16 04:50 Polychromasia 1+ (Not Present) A 11/15/16 04:50 Anisocytosis 1+ (Not Present) A 11/16/16 03:37 PT 13.1 Seconds (9.4-12.1) H 11/15/16 04:50 Carbon Dioxide 32 mEq/L (19-29) H 11/17/16 04:34 Glucose 226 mg/dL (70-99) H 11/17/16 04:34 POC Glucose 208 (58-89) H 11/18/16 07:58 Calcium 8.5 mg/dL (8.6-10.8) L 11/17/16 04:34 Magnesium 1.5 mg/dL (1.6-2.6) L 11/15/16 04:50 Direct Bilirubin 0.9 mg/dL (0.0-0.5) H 11/15/16 04:50 AST 52 Units/L (5-34) H 11/15/16 04:50 Alkaline Phosphatase 530 Units/L (38-126) H 11/15/16 04:50 B-Natriuretic Peptide 167 pg/mL (0-100) H 11/18/16 05:14 Albumin 2.2 g/dL (3.5-5.0) L 11/15/16 04:50 Globulin 5.1 g/dL (2.4-3.5) H 11/15/16 04:50 Albumin/Globulin Ratio 0.4 (1.1-2.2) L 11/15/16 04:50 Urine Clarity Cloudy (Clear) A 11/17/16 21:00 Urine Protein 30 mg/dL (Neg-Trace) H 11/17/16 21:00 Urine Glucose (UA) 100 mg/dL (Normal) H 11/17/16 21:00 Urine Blood Small (Negative) H 11/17/16 21:00 Urine Microscopic WBC 3-5 per hpf (0-3) H 11/17/16 21:00 Ur Squamous Epith Cells Many per lpf (None-Few) H 11/17/16 21:00 Vancomycin Trough 7.2 mcg/mL (10-20) L 11/17/16 04:34 H & H 11/18/16 Range/Units 05:14 Hgb 9.7 L (12.9-16.9) g/dL Hct 31.4 L (37.5-50.1) % All other labs normal. Consult Discharge Plan - Plan Referrals: Alena Salinas DO [Primary Care Provider] -
[2016-11-18] MEDS: Vancomycin 1,750 MG in D5% in Water 500 ML IVPB SCH (18:38)
[2016-11-18] MEDS: Furosemide 20 MG TABLET PO SCH (18:40)
--- NOTE | 2016-11-18 20:41 | Internal Med Progress Note ---
Date of Encounter: 11/18/16 Time of Encounter: 14:00 - Assessment and plan (1) Cellulitis of right lower leg Current Visit: No Status: Acute Assessment and plan: I will continue with cefepime and vancomycin and this should be more than adequate coverage for group C streptococcus which he grew in the wound. Will follow up cultures. Consult ID given the patient's recurrent cellulitis. Consult podiatry for possible need for debridement given extensive skin lesions. (2) Morbid obesity with BMI of 40.0-44.9, adult Current Visit: No Status: Chronic Assessment and plan: Outpatient weight loss regimen. (3) Acute and chronic respiratory failure with hypoxia Current Visit: No Status: Acute Assessment and plan: Continue oxygen therapy (4) DM type 2 with diabetic peripheral neuropathy Current Visit: No Status: Chronic Assessment and plan: Insulin sliding scale and perennial coverage. Add insulin Levemir. (5) HCAP (healthcare-associated pneumonia) Current Visit: Yes Status: Acute Assessment and plan: Cefepime and vancomycin. Follow-up blood cultures. Sputum culture if available. He is at high risk for morbidity and complications due to treatment with IV vancomycin which requires blood level monitoring for toxicity. - Subjective Interval history: 11/18/2016: Patient is more awake, he reports improvement in right lower extremity swelling and pain. History is limited due to advanced schizophrenia. 11/17/2016 Patient cannot provide history due to encephalopathy and poor baseline mental status secondary to schizophrenia and sedation. He has been admitted for worsening lower extremity swelling and pain. He is being treated for cellulitis and sepsis. - Constitutional Vitals: Temp Pulse Resp BP Pulse Ox 98.9 F 80 18 142/58 95 11/18/16 15:25 11/18/16 18:50 11/18/16 18:50 11/18/16 18:50 11/18/16 18:50 General appearance: Present: A&O X 3, morbidly obese - Respiratory Respiratory exam: Present: CTAB. Absent: accessory muscle use, rales, rhonchi, wheezes - Cardiovascular Cardiovascular exam: Present: RRR, +S1, +S2. Absent: diastolic murmur, gallop, rubs, systolic murmur - GI/Abdominal GI/Abdominal exam: Present: normal bowel sounds, soft, no peritoneal signs. Absent: distended, tenderness - Skin Additional comments: Right lower extremity cellulitis and skin discoloration with blisters and white greenish deposits on the back of his calf Internal Medicine: Result - Labs CBC & Chem 7: 11/18/16 05:14 11/17/16 04:34 Labs: Short CBC 11/18/16 Range/Units 05:14 WBC 11.9 H (4.3-11.1) K/mcL Hgb 9.7 L (12.9-16.9) g/dL Hct 31.4 L (37.5-50.1) % Plt Count 514 H (140-400) K/mcL Neutrophils # 7.1 (1.6-8.9) K/mcL Urine 11/17/16 Range/Units 21:00 Urine Color Yellow (Yellow) Urine Clarity Cloudy A (Clear) Urine pH 6.0 (5.0-8.0) pH Units Ur Specific [place] 1.020 (1.010-1.025) Urine Protein 30 H (Neg-Trace) mg/dL Urine Glucose (UA) 100 H (Normal) mg/dL - ABG Interpretation ABG results: PT/INR, D-dimer PT 13.1 Seconds (9.4-12.1) H 11/15/16 04:50 Consult Discharge Plan - Plan Referrals: Alena Salinas DO [Primary Care Provider] -
[2016-11-18] MEDS: Insulin DETEMIR 100 UNIT/ML X5UNITS SQ SCH (23:02)
[2016-11-19] MEDS: Cefepime HCl 1,000 MG in D5% in Water (Mini-Bag+) 100 ML IVPB SCH ×3 (00:43→11:35)
[2016-11-19] MEDS: *HR* Enoxaparin 40 MG/0.4 ML SYRINGE SQ SCH (06:18)
[2016-11-19 06:40] LABS: Basophils # 0.1 K/mcL (0.0-0.2); Basophils % 0.4 %; Eosinophils # 0.3 K/mcL (0.0-0.6); Eosinophils % 2.3 %; Hematocrit 31.8 % (37.5-50.1); Hemoglobin 10.1 g/dL (12.9-16.9); Immature Granulocytes % 4.1 % (0-4); Lymphocytes # 3.4 K/mcL (0.6-4.6); Mean Corpuscular HGB Conc 31.8 g/dL (31.6-35.5); Mean Corpuscular Hemoglobin 28.5 pg (28.0-33.3); Mean Corpuscular Volume 89.6 fL (83.0-100.0); Monocytes % 8.6 %; Neutrophils # 6.6 K/mcL (1.6-8.9); Platelet Count 558 K/mcL (140-400); Red Blood Count 3.55 M/mcL (4.19-5.50); Red Cell Distribution Width 14.9 % (11.5-14.5); Segmented Neutrophils % 55.6 %
[2016-11-19 06:45] LABS: BUN/Creatinine Ratio 11 (6-26); Blood Urea Nitrogen 9 mg/dL (8-26); Calcium 8.4 mg/dL (8.6-10.8); Carbon Dioxide 32 mEq/L (19-29); Chloride 96 mEq/L (98-109); Glucose 161 mg/dL (70-99); Osmolality,Calculated 286 (280-300); Potassium 3.9 mEq/L (3.5-4.5); Sodium 137 mEq/L (136-145); eGFR For African Americans > 60 (> 60); eGFR For Non-African Americans > 60 (> 60)
[2016-11-19] MEDS: Insulin LISPRO 300 UNITS/3 ML VIAL SQ SCH ×4 (08:00→20:59)
[2016-11-19] MEDS: Magnesium Oxide 400 MG TABLET PO SCH ×2 (11:33→20:57)
[2016-11-19] MEDS: diazePAM 5 MG TABLET PO SCH ×3 (11:33→21:00)
[2016-11-19] MEDS: Metoprolol XL (24 HR) Succ 25 MG TAB.ER.24H PO SCH (11:34)
[2016-11-19] MEDS: OXcarbazepine 150 MG TABLET PO SCH ×2 (11:34→20:56)
[2016-11-19] MEDS: Nicotine 21 MG PATCH.TD24 TD SCH (11:34)
[2016-11-19] MEDS: Furosemide 20 MG TABLET PO SCH (11:34)
[2016-11-19] MEDS: *HR* Metformin 500 MG TABLET PO SCH ×2 (11:34→17:41)
[2016-11-19] MEDS: *HR* OxyCODONE Immed Rel 5 MG TABLET PO PRN ×2 (11:34→17:53)
[2016-11-19] MEDS: Gabapentin 300 MG CAPSULE PO SCH ×3 (11:34→20:56)
[2016-11-19] MEDS: Vancomycin 1,750 MG in D5% in Water 500 ML IVPB SCH ×2 (12:49→21:48)
--- NOTE | 2016-11-19 12:54 | Podiatry Progress Note ---
Date of Encounter: 11/19/16 Time of Encounter: 11:30 - Assessment and Plan (1) Cellulitis of right lower leg Current Visit: No Status: Acute Cellulitis of the RLE and foot appears to be secondary to a tinea infection. Agree with present antibiotic therapy to cover group C strep and recommend the addition of Diflucan 200 mg IV daily. Infectious Disease was consulted. WBC: 11.8 and a febrile Dressings changes increased to BID. Cleanse RLE twice daily with water and dynahex, pat dry, apply adaptic to wounds with 4x4 dry sterile gauze and kerilx. Stop Miconazole. Patient was being treated for an ulceration to the medial aspect of the 1st MTPJ right foot by Dr. Velazco in June of 2016. Patient did not follow back up and there is a hemmorhaged callused lesion to the medial aspect of the 1st MTPJ noted today. Sharp cutting performed with a #15 scalpel blade and tissue nipper used to alleviate hyperkeratotic skin, remove devitalized skin to gain true dimensions and allow wound to heal. Partial thickness ulceration to the medial plantar aspect of the 1st MTPJ right foot, base of ulcer is pink, no probe to bone, no pus, no odor. Will order on an xray of the right foot today. CT of RLE did not show any fluid collection or abscess. Venous duplex of RLE was with in normal limits. Will continue to monitor patient closely. Consulted with Dr. France and agreeable to plan of care. (2) Ulcer of right foot Current Visit: Yes Status: Acute Qualifiers: Non-pressure ulcer stage: limited to breakdown of skin Qualified Code(s): L97.511 - Non-pressure chronic ulcer of other part of right foot limited to breakdown of skin (3) DM type 2 with diabetic peripheral neuropathy Current Visit: No Status: Chronic Subjective Interval history: Patient is sitting up in chair upon arrival to room. Patient transferred to bed with dressing dry and intact to RLE. Patient is complaining of pain to the RLE. Patient denies any fever or chills overnight. Patient states he has been restless all night and out of bed due to pain of the RLE. Objective - Vital Signs Vital Signs: Vital Signs Temp Pulse Resp BP Pulse Ox 11/19/16 08:06 98.6 F 99 20 134/85 91 L 11/19/16 03:24 76 18 148/97 95 11/18/16 23:20 95 16 127/64 89 L 11/18/16 23:00 89 L 11/18/16 18:50 80 18 142/58 95 11/18/16 15:25 98.9 F 88 18 98 Intake and Output 11/18/16 11/19/16 11/19/16 23:59 07:59 15:59 Intake Total 500 / 500 100 / 100 280 / 280 Output Total 850 / 850 700 / 700 250 / 250 Balance -350 / -350 -600 / -600 30 / 30 Intake: IV Fluids 500 / 500 100 / 100 Maxipime 1,000 MG In 100 / 100 Dextrose 5% (Minibag+) 100 ML 100 ML @ 200 mls/ hr IVPB Q8H [facility] Rx#: [id number] Vancocin 1,750 MG In 500 / 500 Dextrose 5% 500 ML @ 333. 333 mls/hr IVPB Q12H [facility] Rx#:[id number] Oral 280 / 280 Output: Urine 850 / 850 700 / 700 250 / 250 Other: Meal Breakfast Percent of Meal Consumed 90% # Voids 1 Weight 135.6 kg Blood Glucose* 168 261 Patient Weight 11/19/16 23:59 Weight 135.6 kg - Exam Exam: General: A&O x3, calm and cooperative. Vascular: pedal pulses 1+/4, CFT is immediate to digits #1 through #5 bilaterally. Neurological: Decreased sensation to light touch. Integument: RLE and right foot is globally erythematous and edematous. White bullous lesions to the lateral aspect of the right foot ascending to the right lateral and posterior leg with serous drainage observed to dressing. Skin is warm to touch. Hemmorhaged callused lesion to the medial aspect of the 1st MTPJ right foot. s/p sharp cutting with a #15 scalpel blade and tissue nipper revealed a partial thickness ulceration to to the medial plantar aspect of the 1st MTPJ, base of wound is pink, no pus, no odor, no probe to bone. No sinus tracts, no tunneling, no fluctuance. Toe nails #1 through #5 right, #2 through #5 left are thick, elongated, and mycotic. history of left great toe amputation. - Lab Result Diagrams: 11/19/16 06:01 11/19/16 06:01 Labs: Abnormal lab results WBC 11.8 K/mcL (4.3-11.1) H 11/19/16 06:01 RBC 3.55 M/mcL (4.19-5.50) L 11/19/16 06:01 Hgb 10.1 g/dL (12.9-16.9) L 11/19/16 06:01 Hct 31.8 % (37.5-50.1) L 11/19/16 06:01 RDW 14.9 % (11.5-14.5) H 11/19/16 06:01 Plt Count 558 K/mcL (140-400) H 11/19/16 06:01 Immature Gran % 4.1 % (0-4) H 11/19/16 06:01 Band Neutrophils % 9.1 % (0-4) H 11/16/16 03:37 Metamyelocytes % 1.8 % (0) H 11/16/16 03:37 Reactive Lymphocytes Present (Not Present) A 11/15/16 04:50 Polychromasia 1+ (Not Present) A 11/15/16 04:50 Anisocytosis 1+ (Not Present) A 11/16/16 03:37 PT 13.1 Seconds (9.4-12.1) H 11/15/16 04:50 Chloride 96 mEq/L (98-109) L 11/19/16 06:01 Carbon Dioxide 32 mEq/L (19-29) H 11/19/16 06:01 Glucose 161 mg/dL (70-99) H 11/19/16 06:01 POC Glucose 168 (58-89) H 11/18/16 20:20 Calcium 8.4 mg/dL (8.6-10.8) L 11/19/16 06:01 Magnesium 1.5 mg/dL (1.6-2.6) L 11/15/16 04:50 Direct Bilirubin 0.9 mg/dL (0.0-0.5) H 11/15/16 04:50 AST 52 Units/L (5-34) H 11/15/16 04:50 Alkaline Phosphatase 530 Units/L (38-126) H 11/15/16 04:50 B-Natriuretic Peptide 167 pg/mL (0-100) H 11/18/16 05:14 Albumin 2.2 g/dL (3.5-5.0) L 11/15/16 04:50 Globulin 5.1 g/dL (2.4-3.5) H 11/15/16 04:50 Albumin/Globulin Ratio 0.4 (1.1-2.2) L 11/15/16 04:50 Urine Clarity Cloudy (Clear) A 11/17/16 21:00 Urine Protein 30 mg/dL (Neg-Trace) H 11/17/16 21:00 Urine Glucose (UA) 100 mg/dL (Normal) H 11/17/16 21:00 Urine Blood Small (Negative) H 11/17/16 21:00 Urine Microscopic WBC 3-5 per hpf (0-3) H 11/17/16 21:00 Ur Squamous Epith Cells Many per lpf (None-Few) H 11/17/16 21:00 Vancomycin Trough 9.6 mcg/mL (10-20) L 11/18/16 20:31 Consult Discharge Plan - Plan Referrals: Alena Salinas DO [Primary Care Provider] -
--- NOTE | 2016-11-19 13:47 | Infectious Disease Consult ---
Date of Encounter: 11/19/16 Time of Encounter: 13:44 Assessment and Plan (1) Sepsis Status: Acute Assessment and plan: The patient had three SIRS criteria plus HEATHER and acute encephalopathy on admission. Likely secondary to RLE cellulitis. Improved. WBC near-normal. Continues to have intermittent tachycardia. Has been afebrile since admission. Blood cultures drawn 11/15/16 are NGTD x 2 sets. Qualifiers: Sepsis type: sepsis due to unspecified organism Qualified Code(s): A41.9 - Sepsis, unspecified organism (2) Cellulitis of right lower leg Status: Acute Assessment and plan: Causative organism unclear. Concern for polymicrobial infection. Likely secondary to right foot tinea pedis vs. RLE wounds. Previous wound culture grew out GCS --> treated with IV Zosyn and Unasyn during the last hospitalization. Discharged on Augmentin x 10 days. Repeat wound cultures negative. CT of the RLE completed during the most recent hospitalization showed findings consistent with cellulitis, but he has had minimal improvement despite broad- spectrum antibiotics. Concern for additional underlying skin condition given the bullous wounds to the RLE. Doppler of the RLE negative for thrombus. Repeat CT of the RLE with IV contrast. Continue wound care as outlined by the primary team. Continue Vancomycin IV. Pharmacy to dose. Goal trough approximately 15. Discontinue Cefepime and start Zosyn 3.375 grams IV Q8H for gram negative and anaerobic coverage. Podiatry consulted and wound care orders noted. Continue aggressive wound care. May need to consider formal debridement. Consider dermatology consult if symptoms don't improve. Duration of treatment depends on the clinical picture. Monitor renal function and for drug toxicity and dose-adjust antibiotics. (3) HCAP (healthcare-associated pneumonia) Status: Acute Assessment and plan: CXR completed 11/15/16 showed findings consistent with PNA vs. atelectasis. Continue Vanc and Zosyn as above. Levaquin given in the ED x 1 dose. Repeat CXR now to re-evaluate. (4) Acute kidney injury Status: Resolved Assessment and plan: Likely secondary to sepsis. Resolved. Continue to monitor closely and avoid nephrotoxins as able. Dose-adjust antibiotics based on creatinine clearance. (5) Altered mental status Status: Acute Assessment and plan: Etiology unclear: sepsis vs. medication-induced vs. other. Not sure what the patient's baseline is. Consider CT of the head to rule out intra-cranial abnormality. Management per the primary team. Qualifiers: Altered mental status type: unspecified Qualified Code(s): R41.82 - Altered mental status, unspecified (6) Ulcer of right foot Status: Acute Assessment and plan: Podiatry consulted and following. Qualifiers: Non-pressure ulcer stage: limited to breakdown of skin Qualified Code(s): L97.511 - Non-pressure chronic ulcer of other part of right foot limited to breakdown of skin (7) Diabetes mellitus with nephropathy Status: Chronic Assessment and plan: Recommend aggressive glucose monitoring and control to promote wound healing and prevent reinfection. (8) Tinea pedis Status: Acute Assessment and plan: Consider topical treatment with lamisil or lotrimin in conjunction with IV Diflucan once a week. Management per the podiatry team. Qualifiers: Laterality: bilateral Qualified Code(s): B35.3 - Tinea pedis Infectious Disease HPI - Data of Consult Patient: new to practice Consult date: 11/19/16 Requesting Physician: Doug Mckeon MD Primary Care Provider: Alena Salinas DO - Consult Narrative Reason for consult: RLE Cellulitis History of present illness: Mr. Cormier is a 61 year old male with a past medical history of COPD, diabetes, hyperlipidemia, hypertension, CAD, venostasis, and an extensive psychiatric history. The patient was admitted to the hospital November 15 for age, acute kidney injury, cellulitis of the right lower extremity, and altered mental status. We are consulted November 19 for further evaluation and treatment recommendations regarding right lower extremity cellulitis. It is a 61-year-old male past medical history as stated above. The patient is somewhat of a poor historian due to his altered mental status, therefore, most of the information is obtained from the medical record. Apparently, the patient was discharged from this facility on November 14 to a local extended care facility for rehabilitation. He had been here [facility] for approximately 4 days and treated for right lower extremity cellulitis with multiple antibiotics including vancomycin, Zosyn which was switched to cefepime, and Unasyn. A right lower extremity CT was positive for findings consistent with cellulitis, but no abscess. A wound culture of the right lower extremity grew out group C strep. The patient was discharged to the extended care facility to complete a course of oral Augmentin. The patient was noted to have fever and altered mental status at the [facility] and was tachycardic and was subsequently transferred back to the emergency department. Upon arrival, the patient was afebrile, but he was tachycardic. He did have a white blood cell count of 14,000 with monocytosis. His serum creatinine was elevated at 1.85. Chest x-ray showed a left basilar atelectasis versus pneumonia and pulmonary edema. Blood cultures were obtained 2 sets which are currently no growth to date. Additionally, a wound culture was obtained from the left right lower extremity and is negative. The patient was started on empiric vancomycin, Zosyn, and Levaquin. He was admitted to the hospital for further evaluation and treatment. Since admission, the patient has undergone a Doppler of the right lower extremity which was negative. Since was consulted and recommended twice-daily dressing changes of the right lower extremity. Currently, the patient is on IV vancomycin and cefepime. He had also been on Unasyn, which was discontinued on November 17. His leukocytosis has improved. His acute kidney injury has resolved. We've been asked to evaluate and make further recommendations. My exam today, the patient is lying in bed with a patient forklift driver at the bedside. He does appear to be acutely confused, although he is alert and oriented 3. He is difficult to keep awake during the exam and is a poor historian as to the events leading up to his hospitalization. He complains of pain in the right lower extremity, chest, and abdomen. I'm otherwise unable to complete a review of systems due to his altered mental status. Per the patient forklift driver at the bedside, the patient's mental status has declined since receiving pain medication earlier this afternoon. CC: Doug Mckeon MD Past Med Surg Social Fam HX - Past Medical History Source: old records reviewed, nursing notes reviewed Medical history: arthritis, COPD, diabetes, hyperlipidemia, hypertension, osteoporosis, renal disease, venous stasis, other Psychiatric history: anxiety, bipolar, depression, PTSD, schizophrenia - Past Surgical History Surgical History: appendectomy, cataract, other - Social History Smoking Status: Current every day smoker Smokeless Tobacco Status: No Alcohol use: none Drug use: none Infectious Disease-CN:Meds Metformin [Glucophage] 1,000 mg PO BIDWM 08/01/15 [History] Furosemide [Lasix] 20 mg PO BID 12/17/15 [History] Amitriptyline HCl 100 mg PO HS 11/09/16 [History] Benztropine Mesylate 2 mg PO BID 11/09/16 [History] HydrOXYzine Pamoate 25 mg PO BID PRN 11/09/16 [History] Lisinopril 2.5 mg PO DAILY 11/09/16 [History] Potassium Chloride [K-Tab ER] 10 meq PO BID 11/09/16 [History] Simvastatin [Zocor] 20 mg PO HS 11/09/16 [History] Gabapentin [Neurontin] 1,600 mg PO BID 11/12/16 [History] Gabapentin [Neurontin] 400 mg PO 1300 11/12/16 [History] Pantoprazole Sodium [Protonix] 40 mg PO DAILY 11/12/16 [History] Diazepam [Valium] 5 mg PO TID #30 tablet 11/14/16 [Rx] Metoprolol XL (24 HR) Succ [Toprol Xl] 25 mg PO DAILY #30 tab.er.24h 11/14/16 [ Rx] Oxcarbazepine 300 mg PO BID #60 tablet 11/14/16 [Rx] Diazepam [Valium] 5 mg PO TID #10 tablet 11/24/16 [Rx] OxyCODONE Immed Rel [Roxicodone 5 MG] 10 mg PO Q6HR PRN #10 tablet 11/24/16 [Rx] Allergies aspirin Allergy (Verified 10/22/16 20:35) Rash codeine Allergy (Verified 10/22/16 20:35) Rash iodine Allergy (Verified 10/22/16 20:35) See Comments ROS unobtainable: due to mental status Exam - Constitutional Vitals: Temp Pulse Resp BP Pulse Ox 98.6 F 99 20 134/85 91 L 11/19/16 08:06 11/19/16 08:06 11/19/16 08:06 11/19/16 08:06 11/19/16 08:06 General appearance: cooperative, morbidly obese, no acute distress - Head Head exam: Present: atraumatic, normal inspection, normocephalic - Eye Eye exam: Present: EOMI, normal appearance, PERRL Pupils: Present: normal accommodation - ENT ENT exam: Present: mucous membranes moist - Neck Neck exam: Present: normal inspection - Respiratory Respiratory exam: Present: CTAB. Absent: rales, respiratory distress, rhonchi, wheezes - Cardiovascular Cardiovascular exam: Present: RRR, +S1, +S2 - GI/Abdominal GI/Abdominal exam: Present: distended (obese), normal bowel sounds, soft, tenderness (Generalized) - Extremities Exam Extremities exam: Present: pedal edema (3+ RLE), tenderness (RLE). Absent: joint swelling - Expanded Lower Extremity Exam Lower Leg exam: Present: erythema, swelling, tenderness 1 - RLE markedly erythematous and edematous. Tenderness noted with palpation. Multiple fluid-filled blisters with irregular borders to the lateral and posterior aspects. No active drainage noted at this time. No foul odor. - Back Exam Back exam: Present: normal inspection. Absent: paraspinal tenderness, vertebral tenderness - Neurological Exam Neurological exam: Present: altered, oriented X3, no focal deficits Additional comments: Drowsy, difficult to keep awake during exam. Answers some questions. Follows most commands. Sitter at bedside. - Psychiatric Psychiatric exam: Present: normal affect, normal mood - Skin Skin exam: Present: dry, erythema (RLE), intact, normal color, warm Infectious Disease CN: Results - Labs CBC & Chem 7: 11/24/16 06:33 11/24/16 06:33 Cultures: Cultures 11/15/16 10:40 Wound Culture - Final Right Leg No pathogens isolated. Serology: Serology 11/17/16 11/16/16 Range/Units 21:00 08:00 Urine Color Yellow Yellow (Yellow) Urine Clarity Cloudy A Cloudy A (Clear) Urine pH 6.0 6.0 (5.0-8.0) pH Units Ur Specific [place] 1.020 1.013 (1.010-1.025) Urine Protein 30 H Trace (Neg-Trace) mg/dL Urine Glucose (UA) 100 H 500 H (Normal) mg/dL Urine Ketones Negative Negative (Negative) mg/dL Urine Blood Small H Trace H (Negative) Urine Nitrite Negative Negative (Negative) Urine Bilirubin Negative Negative (Negative) Urine Urobilinogen Normal Normal (Normal) mg/dL Ur Leukocyte Esterase Negative Negative (Negative) Urine Microscopic RBC 0-3 0-3 (0-3) per hpf Urine Microscopic WBC 3-5 H 0-3 (0-3) per hpf Ur Squamous Epith Cells Many H Moderate H (None-Few) per lpf Urine Bacteria None Seen None Seen (None-Few) per hpf Hyaline Casts None Seen None Seen (None-Few) per lpf Ur Culture Indicated? NO (NO) Consult Discharge Plan - Plan Referrals: Alena Salinas DO [Primary Care Provider] - Prescriptions: OxyCODONE Immed Rel [Roxicodone 5 MG] 10 mg PO Q6HR PRN #10 tablet PRN Reason: Moderate Pain (4-6) Diazepam [Valium] 5 mg PO TID #10 tablet
[2016-11-19] MEDS: Piperacillin/Tazobactam 3.375 GM in D5% in Water (Mini-Bag+) 100 ML IVPB SCH ×2 (17:40→23:43)
[2016-11-19] MEDS: Fluconazole 200 MG/100 ML 200 MG/100 ML BAG IVPB SCH (17:40)
--- NOTE | 2016-11-19 20:44 | Internal Med Progress Note ---
Date of Encounter: 11/19/16 Time of Encounter: 15:00 - Assessment and plan (1) Cellulitis of right lower leg Current Visit: No Status: Acute Assessment and plan: I will continue with cefepime and vancomycin which should be adequate coverage for group C streptococcus which he grew in the wound. Will follow up cultures. I appreciate ID input and podiatry recommendations. Discussed the case with Dr. France. We will proceed with dressing changes as recommended and add IV Diflucan for fungal coverage. (2) Morbid obesity with BMI of 40.0-44.9, adult Current Visit: No Status: Chronic Assessment and plan: Outpatient weight loss regimen. (3) Acute and chronic respiratory failure with hypoxia Current Visit: No Status: Acute Assessment and plan: Continue oxygen therapy (4) DM type 2 with diabetic peripheral neuropathy Current Visit: No Status: Chronic Assessment and plan: Insulin sliding scale and pre-meal coverage. Increase Levemir insulin to 14 units twice a day. (5) HCAP (healthcare-associated pneumonia) Current Visit: Yes Status: Acute Assessment and plan: Cefepime and vancomycin. Follow-up blood cultures. Sputum culture if available. He is at high risk for morbidity and complications due to treatment with IV vancomycin which requires blood level monitoring for toxicity. - Subjective Interval history: 11/19/2016: Limited by confusion and schizophrenia. The patient denies leg pain at rest 11/18/2016: Patient is more awake, he reports improvement in right lower extremity swelling and pain. History is limited due to advanced schizophrenia. 11/17/2016 Patient cannot provide history due to encephalopathy and poor baseline mental status secondary to schizophrenia and sedation. He has been admitted for worsening lower extremity swelling and pain. He is being treated for cellulitis and sepsis. - Constitutional Vitals: Temp Pulse Resp BP Pulse Ox 97.8 F 108 16 122/96 94 L 11/19/16 19:30 11/19/16 19:30 11/19/16 19:30 11/19/16 19:30 11/19/16 19:30 General appearance: Present: A&O X 3, morbidly obese - Eye Eye exam: Present: PERRL, conjuntiva pink, sclera anicteric Pupils: Present: PERRL - Respiratory Respiratory exam: Present: CTAB. Absent: accessory muscle use, rales, rhonchi, wheezes - Cardiovascular Cardiovascular exam: Present: RRR, +S1, +S2. Absent: diastolic murmur, gallop, rubs, systolic murmur - GI/Abdominal GI/Abdominal exam: Present: normal bowel sounds, soft, no peritoneal signs. Absent: distended, tenderness - Extremities Exam Additional comments: Right lower extremity wounds wrapped in dressing Internal Medicine: Result - Labs CBC & Chem 7: 11/19/16 06:01 11/19/16 06:01 Labs: Short CBC 11/19/16 Range/Units 06:01 WBC 11.8 H (4.3-11.1) K/mcL Hgb 10.1 L (12.9-16.9) g/dL Hct 31.8 L (37.5-50.1) % Plt Count 558 H (140-400) K/mcL Neutrophils # 6.6 (1.6-8.9) K/mcL BMP 11/19/16 06:01 Sodium 137 Potassium 3.9 Chloride 96 L Carbon Dioxide 32 H BUN 9 Creatinine 0.79 Glucose 161 H Calcium 8.4 L - ABG Interpretation ABG results: PT/INR, D-dimer PT 13.1 Seconds (9.4-12.1) H 11/15/16 04:50 - Impressions Impressions Foot X-Ray 11/19/16 13:07 IMPRESSION: 1. Soft tissue ulceration adjacent to the 1st proximal phalanx. 2. No destructive bony abnormality. 3. Stable deformity of the proximal 2nd and 3rd phalanges. D/ /19/2016 15:09:33 Dickson Arreguin MD / tkyer Interpreting Provider: Dickson Arreguin MD Chest X-Ray 11/19/16 14:27 IMPRESSION: Improved aeration of the left lower lobe however there is persistent congestion and perihilar interstitial disease. No evidence of pleural effusion or pneumothorax. D/ : / 11/19/2016 15:10:57 Eloisa Deng MD / bcarter Interpreting Provider: Eloisa Deng MD Consult Discharge Plan - Plan Referrals: Alena Salinas DO [Primary Care Provider] -
[2016-11-19] MEDS: Insulin DETEMIR 100 UNIT/ML X5UNITS SQ SCH ×2 (20:58→21:49)
[2016-11-20 05:49] LABS: Basophils # 0.1 K/mcL (0.0-0.2); Basophils % 0.7 %; Eosinophils # 0.3 K/mcL (0.0-0.6); Eosinophils % 2.7 %; Hematocrit 32.5 % (37.5-50.1); Hemoglobin 10.3 g/dL (12.9-16.9); Immature Granulocytes % 3.1 % (0-4); Lymphocytes # 3.6 K/mcL (0.6-4.6); Mean Corpuscular HGB Conc 31.7 g/dL (31.6-35.5); Mean Corpuscular Hemoglobin 28.5 pg (28.0-33.3); Mean Corpuscular Volume 89.8 fL (83.0-100.0); Monocytes # 1.1 K/mcL (0.0-1.3); Monocytes % 9.1 %; Neutrophils # 6.9 K/mcL (1.6-8.9); Platelet Count 574 K/mcL (140-400); Red Blood Count 3.62 M/mcL (4.19-5.50); Red Cell Distribution Width 14.9 % (11.5-14.5); Segmented Neutrophils % 55.4 %
[2016-11-20] MEDS: *HR* Enoxaparin 40 MG/0.4 ML SYRINGE SQ SCH (06:35)
[2016-11-20] MEDS: *HR* OxyCODONE Immed Rel 5 MG TABLET PO PRN (06:41)
[2016-11-20] MEDS: diazePAM 5 MG TABLET PO SCH ×3 (08:49→20:10)
[2016-11-20] MEDS: Gabapentin 300 MG CAPSULE PO SCH ×3 (08:49→20:10)
[2016-11-20] MEDS: *HR* Metformin 500 MG TABLET PO SCH ×2 (08:49→17:06)
[2016-11-20] MEDS: Furosemide 20 MG TABLET PO SCH (08:49)
[2016-11-20] MEDS: Metoprolol XL (24 HR) Succ 25 MG TAB.ER.24H PO SCH (08:49)
[2016-11-20] MEDS: OXcarbazepine 150 MG TABLET PO SCH ×2 (08:50→20:10)
[2016-11-20] MEDS: Nicotine 21 MG PATCH.TD24 TD SCH (08:50)
[2016-11-20] MEDS: Ondansetron 4 MG/2 ML VIAL IVP PRN (08:50)
[2016-11-20] MEDS: Insulin LISPRO 300 UNITS/3 ML VIAL SQ SCH ×4 (08:54→20:12)
[2016-11-20] MEDS: Insulin DETEMIR 100 UNIT/ML X5UNITS SQ SCH ×2 (08:55→20:10)
[2016-11-20] MEDS: Piperacillin/Tazobactam 3.375 GM in D5% in Water (Mini-Bag+) 100 ML IVPB SCH ×3 (08:56→23:16)
[2016-11-20] MEDS: Fluconazole 200 MG/100 ML 200 MG/100 ML BAG IVPB SCH (08:59)
[2016-11-20] MEDS: Magnesium Oxide 400 MG TABLET PO SCH ×2 (11:51→20:11)
--- NOTE | 2016-11-20 12:40 | Infectious Disease Progress No ---
Date of Encounter: 11/20/16 Time of Encounter: 12:37 - Assessment and Plan (1) Sepsis Current Visit: Yes Status: Acute The patient had three SIRS criteria plus HEATHER and acute encephalopathy on admission. Likely secondary to RLE cellulitis. Improved. WBC near-normal. Continues to have intermittent tachycardia. Has been afebrile since admission. Blood cultures drawn 11/15/16 are NGTD x 2 sets. Qualifiers: Sepsis type: sepsis due to unspecified organism Qualified Code(s): A41.9 - Sepsis, unspecified organism (2) Cellulitis of right lower leg Current Visit: No Status: Acute Causative organism unclear. Concern for polymicrobial infection. Likely secondary to right foot tinea pedis vs. RLE wounds. Previous wound culture grew out GCS --> treated with IV Zosyn and Unasyn during the last hospitalization. Discharged on Augmentin x 10 days. Repeat wound cultures negative. CT of the RLE completed during the most recent hospitalization showed findings consistent with cellulitis, but he has had minimal improvement despite broad- spectrum antibiotics. Concern for additional underlying skin condition given the bullous wounds to the RLE. Doppler of the RLE negative for thrombus. Repeat CT of the RLE. Continue wound care as outlined by the primary team. Continue Vancomycin IV. Pharmacy to dose. Goal trough approximately 15. Continue Zosyn 3.375 grams IV Q8H for gram negative and anaerobic coverage. Podiatry consulted and wound care orders noted. Continue aggressive wound care. May need to consider formal debridement and/or compression dressing. Consider dermatology consult if symptoms don't improve. Duration of treatment depends on the clinical picture. Monitor renal function and for drug toxicity and dose-adjust antibiotics. (3) HCAP (healthcare-associated pneumonia) Current Visit: Yes Status: Acute Assessment and plan: CXR completed 11/15/16 showed findings consistent with PNA vs. atelectasis. Continue Vanc and Zosyn as above. Levaquin given in the ED x 1 dose. Repeat CXR now to re-evaluate. (4) Acute kidney injury Current Visit: Yes Status: Resolved Likely secondary to sepsis. Resolved. Continue to monitor closely and avoid nephrotoxins as able. Dose-adjust antibiotics based on creatinine clearance. (5) Altered mental status Current Visit: Yes Status: Acute Etiology unclear: sepsis vs. medication-induced vs. other. Not sure what the patient's baseline is. Consider CT of the head to rule out intra-cranial abnormality. Management per the primary team. Qualifiers: Altered mental status type: unspecified Qualified Code(s): R41.82 - Altered mental status, unspecified (6) Ulcer of right foot Current Visit: Yes Status: Acute Podiatry consulted and following. Qualifiers: Non-pressure ulcer stage: limited to breakdown of skin Qualified Code(s): L97.511 - Non-pressure chronic ulcer of other part of right foot limited to breakdown of skin (7) Diabetes mellitus with nephropathy Current Visit: No Status: Chronic Recommend aggressive glucose monitoring and control to promote wound healing and prevent reinfection. (8) Tinea pedis Current Visit: Yes Status: Acute Consider topical treatment with lamisil or lotrimin in conjunction with IV Diflucan once a week. Management per the podiatry team. Qualifiers: Laterality: bilateral Qualified Code(s): B35.3 - Tinea pedis - Subjective Interval history: Patient seen and examined. No acute events noted overnight. Patient sitting up in the bedside chair with patient to pain at the bedside. Eyes closed, awakens to loud verbal stimuli. Difficult to keep the patient awake during the exam. He complains of pain in his bilateral lower extremities. Denies chest pain, shortness of breath, or cough. Complains of nausea. Denies vomiting or diarrhea. Complains of generalized abdominal pain. Reports some difficulty starting his urine stream. Denies diarrhea. Infect Dis PN-Objective Data - Labs CBC & Chem 7: 11/24/16 06:33 11/24/16 06:33 Labs: Laboratory Results - last 24 hr 11/19/16 11/20/16 11/20/16 20:27 05:18 09:12 WBC 12.4 H RBC 3.62 L Hgb 10.3 L Hct 32.5 L MCV 89.8 MCH 28.5 MCHC 31.7 RDW 14.9 H Plt Count 574 H MPV 10.0 Immature Gran % 3.1 Seg Neutrophils % 55.4 Lymphocytes % 29.0 Monocytes % 9.1 Eosinophils % 2.7 Basophils % 0.7 Neutrophils # 6.9 Lymphocytes # 3.6 Monocytes # 1.1 Eosinophils # 0.3 Basophils # 0.1 POC Glucose 140 H Vancomycin Trough 20.1 H* Cultures: Cultures 11/15/16 10:40 Wound Culture - Final Right Leg No pathogens isolated. Serology 11/17/16 11/16/16 Range/Units 21:00 08:00 Urine Color Yellow Yellow (Yellow) Urine Clarity Cloudy A Cloudy A (Clear) Urine pH 6.0 6.0 (5.0-8.0) pH Units Ur Specific [place] 1.020 1.013 (1.010-1.025) Urine Protein 30 H Trace (Neg-Trace) mg/dL Urine Glucose (UA) 100 H 500 H (Normal) mg/dL Urine Ketones Negative Negative (Negative) mg/dL Urine Blood Small H Trace H (Negative) Urine Nitrite Negative Negative (Negative) Urine Bilirubin Negative Negative (Negative) Urine Urobilinogen Normal Normal (Normal) mg/dL Ur Leukocyte Esterase Negative Negative (Negative) Urine Microscopic RBC 0-3 0-3 (0-3) per hpf Urine Microscopic WBC 3-5 H 0-3 (0-3) per hpf Ur Squamous Epith Cells Many H Moderate H (None-Few) per lpf Urine Bacteria None Seen None Seen (None-Few) per hpf Hyaline Casts None Seen None Seen (None-Few) per lpf Ur Culture Indicated? NO (NO) - Impressions Impressions Foot X-Ray 11/19/16 13:07 IMPRESSION: 1. Soft tissue ulceration adjacent to the 1st proximal phalanx. 2. No destructive bony abnormality. 3. Stable deformity of the proximal 2nd and 3rd phalanges. D/ /19/2016 15:09:33 Dickson Arreguin MD / tkyer Interpreting Provider: Dickson Arreguin MD Chest X-Ray 11/19/16 14:27 IMPRESSION: Improved aeration of the left lower lobe however there is persistent congestion and perihilar interstitial disease. No evidence of pleural effusion or pneumothorax. D/ : / 11/19/2016 15:10:57 Eloisa Deng MD / bcarter Interpreting Provider: Eloisa Deng MD Exam - Constitutional Vitals: Temp Pulse Resp BP Pulse Ox 98.0 F 96 20 118/80 96 11/20/16 10:40 11/20/16 10:40 11/20/16 10:40 11/20/16 10:40 11/20/16 10:40 General appearance: cooperative, morbidly obese, no acute distress - Head Head exam: Present: atraumatic, normal inspection, normocephalic - Eye Eye exam: Present: EOMI, normal appearance, PERRL Pupils: Present: normal accommodation - ENT ENT exam: Present: mucous membranes moist - Neck Neck exam: Present: normal inspection - Respiratory Respiratory exam: Present: CTAB. Absent: rales, respiratory distress, rhonchi, wheezes - Cardiovascular Cardiovascular exam: Present: RRR, +S1, +S2 - GI/Abdominal GI/Abdominal exam: Present: distended, normal bowel sounds, soft, tenderness ( Generalized) - Extremities Exam Extremities exam: Present: pedal edema (2+ RLE), tenderness (BLE). Absent: joint swelling Additional comments: RLE erythematous from knee to toes. Guaze dressing C/D/I. - Neurological Exam Neurological exam: Present: altered, no focal deficits, strengths equal and symetr throughout Additional comments: Answers some questions inappropriately. Oriented to person and place only. - Psychiatric Psychiatric exam: Present: normal affect, normal mood - Skin Skin exam: Present: dry, intact, normal color, warm Consult Discharge Plan - Plan Referrals: Alena Salinas DO [Primary Care Provider] - Prescriptions: OxyCODONE Immed Rel [Roxicodone 5 MG] 10 mg PO Q6HR PRN #10 tablet PRN Reason: Moderate Pain (4-6) Diazepam [Valium] 5 mg PO TID #10 tablet
[2016-11-20] MEDS: Vancomycin 1,500 MG in D5% in Water 250 ML IVPB SCH ×2 (14:49→23:17)
--- NOTE | 2016-11-20 20:53 | Internal Med Progress Note ---
Date of Encounter: 11/20/16 Time of Encounter: 20:52 - Assessment and plan (1) Cellulitis of right lower leg Current Visit: No Status: Acute Assessment and plan: I will continue with cefepime and vancomycin. Neomycin level is 20 today, will hold and we adjusted dose. Will follow up cultures. I appreciate ID input and podiatry recommendations. Discussed the case with Dr. France. We will proceed with dressing changes as recommended and continue IV Diflucan for fungal coverage. (2) Morbid obesity with BMI of 40.0-44.9, adult Current Visit: No Status: Chronic Assessment and plan: Outpatient weight loss regimen. (3) Acute and chronic respiratory failure with hypoxia Current Visit: No Status: Acute Assessment and plan: Continue oxygen therapy (4) DM type 2 with diabetic peripheral neuropathy Current Visit: No Status: Chronic Assessment and plan: Insulin sliding scale and pre-meal coverage. Increase Levemir insulin to 14 units twice a day. (5) HCAP (healthcare-associated pneumonia) Current Visit: Yes Status: Acute - Subjective Interval history: 11/19/2016: Limited by confusion and schizophrenia. The patient denies leg pain at rest 11/18/2016: Patient is more awake, he reports improvement in right lower extremity swelling and pain. History is limited due to advanced schizophrenia. 11/17/2016 Patient cannot provide history due to encephalopathy and poor baseline mental status secondary to schizophrenia and sedation. He has been admitted for worsening lower extremity swelling and pain. He is being treated for cellulitis and sepsis. - Constitutional Vitals: Temp Pulse Resp BP Pulse Ox 97.8 F 104 18 114/62 93 L 11/20/16 20:01 11/20/16 20:01 11/20/16 20:01 11/20/16 20:01 11/20/16 20:01 General appearance: Present: A&O X 3, morbidly obese - Eye Eye exam: Present: PERRL, conjuntiva pink, sclera anicteric Pupils: Present: PERRL - Respiratory Respiratory exam: Present: CTAB. Absent: accessory muscle use, rales, rhonchi, wheezes - Cardiovascular Cardiovascular exam: Present: RRR, +S1, +S2. Absent: diastolic murmur, gallop, rubs, systolic murmur - GI/Abdominal GI/Abdominal exam: Present: normal bowel sounds, soft, no peritoneal signs. Absent: distended, tenderness Internal Medicine: Result - Labs CBC & Chem 7: 11/20/16 05:18 11/19/16 06:01 Labs: Short CBC 11/20/16 Range/Units 05:18 WBC 12.4 H (4.3-11.1) K/mcL Hgb 10.3 L (12.9-16.9) g/dL Hct 32.5 L (37.5-50.1) % Plt Count 574 H (140-400) K/mcL Neutrophils # 6.9 (1.6-8.9) K/mcL - ABG Interpretation ABG results: PT/INR, D-dimer PT 13.1 Seconds (9.4-12.1) H 11/15/16 04:50 - Impressions Impressions Chest X-Ray 11/19/16 14:27 IMPRESSION: Improved aeration of the left lower lobe however there is persistent congestion and perihilar interstitial disease. No evidence of pleural effusion or pneumothorax. D/ / 11/19/2016 15:10:57 Eloisa Deng MD / [facility]arter Interpreting Provider: Eloisa Deng MD Consult Discharge Plan - Plan Referrals: Alena Salinas DO [Primary Care Provider] -
[2016-11-21] MEDS: *HR* Enoxaparin 40 MG/0.4 ML SYRINGE SQ SCH (05:30)
[2016-11-21] MEDS: Insulin LISPRO 300 UNITS/3 ML VIAL SQ SCH ×4 (08:29→22:50)
[2016-11-21] MEDS: OXcarbazepine 150 MG TABLET PO SCH ×2 (08:36→22:49)
[2016-11-21] MEDS: *HR* Metformin 500 MG TABLET PO SCH ×2 (08:37→15:55)
[2016-11-21] MEDS: Nicotine 21 MG PATCH.TD24 TD SCH (08:37)
[2016-11-21] MEDS: diazePAM 5 MG TABLET PO SCH ×3 (08:37→22:50)
[2016-11-21] MEDS: Metoprolol XL (24 HR) Succ 25 MG TAB.ER.24H PO SCH (08:37)
[2016-11-21] MEDS: Furosemide 20 MG TABLET PO SCH (08:37)
[2016-11-21] MEDS: Magnesium Oxide 400 MG TABLET PO SCH ×2 (08:37→22:49)
[2016-11-21] MEDS: Gabapentin 300 MG CAPSULE PO SCH ×3 (08:37→22:48)
[2016-11-21 08:44] LABS: Basophils # 0.1 K/mcL (0.0-0.2); Basophils % 0.7 %; Eosinophils # 0.3 K/mcL (0.0-0.6); Eosinophils % 2.7 %; Hematocrit 33.3 % (37.5-50.1); Hemoglobin 10.6 g/dL (12.9-16.9); Immature Granulocytes % 3.2 % (0-4); Lymphocytes # 3.5 K/mcL (0.6-4.6); Lymphocytes % 29.7 %; Mean Corpuscular HGB Conc 31.8 g/dL (31.6-35.5); Mean Corpuscular Hemoglobin 28.5 pg (28.0-33.3); Mean Corpuscular Volume 89.5 fL (83.0-100.0); Mean Platelet Volume 9.9 fL (9.4-12.4); Monocytes # 1.1 K/mcL (0.0-1.3); Monocytes % 9.2 %; Neutrophils # 6.3 K/mcL (1.6-8.9); Platelet Count 591 K/mcL (140-400); Red Blood Count 3.72 M/mcL (4.19-5.50); Red Cell Distribution Width 14.9 % (11.5-14.5); Segmented Neutrophils % 54.5 %
[2016-11-21 08:49] LABS: BUN/Creatinine Ratio 10 (6-26); Blood Urea Nitrogen 10 mg/dL (8-26); Calcium 8.7 mg/dL (8.6-10.8); Carbon Dioxide 34 mEq/L (19-29); Chloride 96 mEq/L (98-109); Glucose 96 mg/dL (70-99); Osmolality,Calculated 285 (280-300); Potassium 4.2 mEq/L (3.5-4.5); Sodium 138 mEq/L (136-145); eGFR For African Americans > 60 (> 60); eGFR For Non-African Americans > 60 (> 60)
[2016-11-21] MEDS: Piperacillin/Tazobactam 3.375 GM in D5% in Water (Mini-Bag+) 100 ML IVPB SCH ×2 (08:53→18:07)
[2016-11-21] MEDS: Insulin DETEMIR 100 UNIT/ML X5UNITS SQ SCH ×2 (12:25→22:56)
[2016-11-21] MEDS: Vancomycin 1,500 MG in D5% in Water 250 ML IVPB SCH (12:26)
[2016-11-21] MEDS: Fluconazole 200 MG/100 ML 200 MG/100 ML BAG IVPB SCH (15:56)
[2016-11-21] MEDS: *HR* OxyCODONE Immed Rel 5 MG TABLET PO PRN (18:20)
--- NOTE | 2016-11-21 20:29 | Internal Med Progress Note ---
Date of Encounter: 11/21/16 Time of Encounter: 10:00 - Assessment and plan (1) Cellulitis of right lower leg Current Visit: No Status: Acute Assessment and plan: Switch to Zosyn and vancomycin per ID were recommendations. We will continue this.. Obtain vancomycin dose in the morning.. Will follow up cultures. I appreciate ID input and podiatry recommendations. We will proceed with dressing changes as recommended and continue IV Diflucan for fungal coverage. (2) Morbid obesity with BMI of 40.0-44.9, adult Current Visit: No Status: Chronic Assessment and plan: Outpatient weight loss regimen. (3) Acute and chronic respiratory failure with hypoxia Current Visit: No Status: Acute Assessment and plan: Continue oxygen therapy (4) DM type 2 with diabetic peripheral neuropathy Current Visit: No Status: Chronic Assessment and plan: Insulin sliding scale and pre-meal coverage. Increase Levemir insulin to 14 units twice a day. (5) HCAP (healthcare-associated pneumonia) Current Visit: Yes Status: Acute Assessment and plan: Zosyn and vancomycin. Follow-up blood cultures - negative. Sputum culture not available. He is at high risk for morbidity and complications due to treatment with IV vancomycin which requires blood level monitoring for toxicity. - Subjective Interval history: 11/21: History still limited by confusion and schizophrenia. He denies leg pain. Denies fevers chills shortness of breath and chest pain. 11/19/2016: Limited by confusion and schizophrenia. The patient denies leg pain at rest 11/18/2016: Patient is more awake, he reports improvement in right lower extremity swelling and pain. History is limited due to advanced schizophrenia. 11/17/2016 Patient cannot provide history due to encephalopathy and poor baseline mental status secondary to schizophrenia and sedation. He has been admitted for worsening lower extremity swelling and pain. He is being treated for cellulitis and sepsis. - Constitutional Vitals: Temp Pulse Resp BP Pulse Ox 98 F 96 18 133/79 96 11/21/16 19:47 11/21/16 19:47 11/21/16 19:47 11/21/16 19:47 11/21/16 19:47 General appearance: Present: A&O X 3, morbidly obese - Neck Neck exam general surgery: Present: supple, trachea midline. Absent: lymphadenopathy - Respiratory Respiratory exam: Present: CTAB. Absent: accessory muscle use, rales, rhonchi, wheezes - Cardiovascular Cardiovascular exam: Present: RRR, +S1, +S2. Absent: diastolic murmur, gallop, rubs, systolic murmur - GI/Abdominal GI/Abdominal exam: Present: normal bowel sounds, soft, no peritoneal signs. Absent: distended, tenderness - Extremities Exam Additional comments: Right leg cellulitis and open wounds appear significantly only improved with more dry scabs and less erythema. No drainage. Internal Medicine: Result - Labs CBC & Chem 7: 11/21/16 08:18 11/21/16 08:18 Labs: Short CBC 11/21/16 Range/Units 08:18 WBC 11.6 H (4.3-11.1) K/mcL Hgb 10.6 L (12.9-16.9) g/dL Hct 33.3 L (37.5-50.1) % Plt Count 591 H (140-400) K/mcL Neutrophils # 6.3 (1.6-8.9) K/mcL BMP 11/21/16 08:18 Sodium 138 Potassium 4.2 Chloride 96 L Carbon Dioxide 34 H BUN 10 Creatinine 1.02 Glucose 96 Calcium 8.7 - ABG Interpretation ABG results: PT/INR, D-dimer PT 13.1 Seconds (9.4-12.1) H 11/15/16 04:50 Consult Discharge Plan - Plan Referrals: Alena Salinas DO [Primary Care Provider] -
[2016-11-22] MEDS: Piperacillin/Tazobactam 3.375 GM in D5% in Water (Mini-Bag+) 100 ML IVPB SCH ×3 (00:26→15:17)
[2016-11-22] MEDS: *HR* OxyCODONE Immed Rel 5 MG TABLET PO PRN ×2 (00:27→16:13)
[2016-11-22] MEDS: *HR* Enoxaparin 40 MG/0.4 ML SYRINGE SQ SCH (05:44)
[2016-11-22 07:27] LABS: BUN/Creatinine Ratio 11 (6-26); Blood Urea Nitrogen 12 mg/dL (8-26); Calcium 8.5 mg/dL (8.6-10.8); Carbon Dioxide 31 mEq/L (19-29); Chloride 96 mEq/L (98-109); Glucose 125 mg/dL (70-99); Osmolality,Calculated 287 (280-300); Sodium 138 mEq/L (136-145); eGFR For African Americans > 60 (> 60); eGFR For Non-African Americans > 60 (> 60)
[2016-11-22 07:29] LABS: Basophils # 0.1 K/mcL (0.0-0.2); Basophils % 0.8 %; Eosinophils # 0.3 K/mcL (0.0-0.6); Eosinophils % 2.5 %; Hematocrit 32.4 % (37.5-50.1); Hemoglobin 9.9 g/dL (12.9-16.9); Immature Granulocytes % 2.6 % (0-4); Lymphocytes # 3.9 K/mcL (0.6-4.6); Lymphocytes % 37.3 %; Mean Corpuscular HGB Conc 30.6 g/dL (31.6-35.5); Mean Corpuscular Hemoglobin 27.7 pg (28.0-33.3); Mean Corpuscular Volume 90.8 fL (83.0-100.0); Mean Platelet Volume 9.9 fL (9.4-12.4); Monocytes # 1.1 K/mcL (0.0-1.3); Monocytes % 10.2 %; Neutrophils # 4.9 K/mcL (1.6-8.9); Platelet Count 602 K/mcL (140-400); Red Blood Count 3.57 M/mcL (4.19-5.50); Red Cell Distribution Width 14.9 % (11.5-14.5); Segmented Neutrophils % 46.6 %
[2016-11-22] MEDS: Insulin LISPRO 300 UNITS/3 ML VIAL SQ SCH ×4 (09:34→22:16)
[2016-11-22] MEDS: *HR* Metformin 500 MG TABLET PO SCH ×2 (09:43→16:07)
[2016-11-22] MEDS: Gabapentin 300 MG CAPSULE PO SCH ×3 (09:43→22:16)
[2016-11-22] MEDS: Metoprolol XL (24 HR) Succ 25 MG TAB.ER.24H PO SCH (09:43)
[2016-11-22] MEDS: OXcarbazepine 150 MG TABLET PO SCH ×2 (09:43→22:15)
[2016-11-22] MEDS: Magnesium Oxide 400 MG TABLET PO SCH ×2 (09:43→22:16)
[2016-11-22] MEDS: Furosemide 20 MG TABLET PO SCH (09:43)
[2016-11-22] MEDS: diazePAM 5 MG TABLET PO SCH ×3 (09:43→22:16)
[2016-11-22] MEDS: Nicotine 21 MG PATCH.TD24 TD SCH (09:44)
[2016-11-22] MEDS: Insulin DETEMIR 100 UNIT/ML X5UNITS SQ SCH ×2 (09:55→22:23)
[2016-11-22] MEDS: Vancomycin 1,500 MG in D5% in Water 250 ML IVPB SCH (12:16)
[2016-11-22] MEDS: Fluconazole 200 MG/100 ML 200 MG/100 ML BAG IVPB SCH (16:07)
--- NOTE | 2016-11-22 16:50 | Internal Med Progress Note ---
Date of Encounter: 11/22/16 Time of Encounter: 16:48 - Assessment and plan (1) Cellulitis of right lower leg Current Visit: No Status: Acute Assessment and plan: Continue with Zosyn and vancomycin per ID were recommendations. He has a PICC line, plan for discharge back to [facility] with IV antibiotics. We will repeat vancomycin dose in the morning.. Will follow up cultures. I appreciate ID input and podiatry recommendations. Continue dressing changes as recommended and continue IV Diflucan for fungal coverage. For leg pain we will add oral morphine. (2) Morbid obesity with BMI of 40.0-44.9, adult Current Visit: No Status: Chronic Assessment and plan: Outpatient weight loss regimen. (3) Acute and chronic respiratory failure with hypoxia Current Visit: No Status: Acute Assessment and plan: Continue oxygen therapy (4) DM type 2 with diabetic peripheral neuropathy Current Visit: No Status: Chronic (5) HCAP (healthcare-associated pneumonia) Current Visit: Yes Status: Acute - Subjective Interval history: 11/22/2016: Patient is more awake, reports bilateral leg pain below the knee described as aching and burning secondary to neuropathy. He says oxycodone does not alleviate his pain. 11/21: History still limited by confusion and schizophrenia. He denies leg pain. Denies fevers chills shortness of breath and chest pain. 11/19/2016: Limited by confusion and schizophrenia. The patient denies leg pain at rest 11/18/2016: Patient is more awake, he reports improvement in right lower extremity swelling and pain. History is limited due to advanced schizophrenia. 11/17/2016 Patient cannot provide history due to encephalopathy and poor baseline mental status secondary to schizophrenia and sedation. He has been admitted for worsening lower extremity swelling and pain. He is being treated for cellulitis and sepsis. - Constitutional Vitals: Temp Pulse Resp BP Pulse Ox 97.0 F L 99 17 128/83 95 11/22/16 08:10 11/22/16 08:10 11/22/16 08:10 11/22/16 08:10 11/22/16 08:10 General appearance: Present: A&O X 3, morbidly obese - Respiratory Respiratory exam: Present: CTAB. Absent: accessory muscle use, rales, rhonchi, wheezes - Cardiovascular Cardiovascular exam: Present: RRR, +S1, +S2. Absent: diastolic murmur, gallop, rubs, systolic murmur - GI/Abdominal GI/Abdominal exam: Present: normal bowel sounds, soft, no peritoneal signs. Absent: distended, tenderness - Extremities Exam Extremities exam: Present: pedal edema, warm, radial pulses palpable and symetrical. Absent: calf tenderness, cyanotic - Neurological Exam Neurological exam: Present: CN II-XII intact, oriented X3, no focal deficits. Absent: pronater drift, facial droop, speech deficit - Skin Additional comments: Right lower extremity erythema, the leg is wrapped with dressing Internal Medicine: Result - Labs CBC & Chem 7: 11/22/16 06:02 11/22/16 06:02 Labs: Short CBC 11/22/16 Range/Units 06:02 WBC 10.4 (4.3-11.1) K/mcL Hgb 9.9 L (12.9-16.9) g/dL Hct 32.4 L (37.5-50.1) % Plt Count 602 H (140-400) K/mcL Neutrophils # 4.9 (1.6-8.9) K/mcL BMP 11/22/16 06:02 Sodium 138 Potassium 4.0 Chloride 96 L Carbon Dioxide 31 H BUN 12 Creatinine 1.13 Glucose 125 H Calcium 8.5 L - ABG Interpretation ABG results: PT/INR, D-dimer PT 13.1 Seconds (9.4-12.1) H 11/15/16 04:50 Consult Discharge Plan - Plan Referrals: Alena Salinas DO [Primary Care Provider] -
[2016-11-22] MEDS ORDERED: *HR* Morphine Immed Rel 30 MG TABLET PO PRN (16:54)
[2016-11-22] MEDS: *HR* Morphine Immed Rel 30 MG TABLET PO PRN (22:23)
[2016-11-23] MEDS: Piperacillin/Tazobactam 3.375 GM in D5% in Water (Mini-Bag+) 100 ML IVPB SCH ×4 (00:50→23:25)
[2016-11-23 05:02] LABS: Basophils # 0.1 K/mcL (0.0-0.2); Basophils % 0.8 %; Eosinophils # 0.3 K/mcL (0.0-0.6); Eosinophils % 2.6 %; Hematocrit 29.9 % (37.5-50.1); Hemoglobin 9.3 g/dL (12.9-16.9); Immature Granulocytes % 1.9 % (0-4); Lymphocytes # 3.7 K/mcL (0.6-4.6); Lymphocytes % 34.2 %; Mean Corpuscular HGB Conc 31.1 g/dL (31.6-35.5); Mean Corpuscular Hemoglobin 28.2 pg (28.0-33.3); Mean Corpuscular Volume 90.6 fL (83.0-100.0); Mean Platelet Volume 9.6 fL (9.4-12.4); Monocytes # 1.2 K/mcL (0.0-1.3); Monocytes % 10.7 %; Neutrophils # 5.4 K/mcL (1.6-8.9); Platelet Count 539 K/mcL (140-400); Red Cell Distribution Width 14.8 % (11.5-14.5); Segmented Neutrophils % 49.8 %
[2016-11-23 05:13] LABS: BUN/Creatinine Ratio 12 (6-26); Blood Urea Nitrogen 14 mg/dL (8-26); Calcium 8.3 mg/dL (8.6-10.8); Carbon Dioxide 30 mEq/L (19-29); Chloride 96 mEq/L (98-109); Glucose 116 mg/dL (70-99); Osmolality,Calculated 285 (280-300); Sodium 137 mEq/L (136-145); eGFR For African Americans > 60 (> 60); eGFR For Non-African Americans > 60 (> 60)
[2016-11-23] MEDS: *HR* Enoxaparin 40 MG/0.4 ML SYRINGE SQ SCH (06:31)
[2016-11-23] MEDS: Furosemide 20 MG TABLET PO SCH (09:42)
[2016-11-23] MEDS: Metoprolol XL (24 HR) Succ 25 MG TAB.ER.24H PO SCH (09:42)
[2016-11-23] MEDS: Magnesium Oxide 400 MG TABLET PO SCH ×2 (09:42→20:51)
[2016-11-23] MEDS: diazePAM 5 MG TABLET PO SCH ×3 (09:42→20:51)
[2016-11-23] MEDS: Gabapentin 300 MG CAPSULE PO SCH ×3 (09:42→20:51)
[2016-11-23] MEDS: *HR* Metformin 500 MG TABLET PO SCH ×2 (09:43→17:51)
[2016-11-23] MEDS: Insulin LISPRO 300 UNITS/3 ML VIAL SQ SCH ×4 (09:43→20:52)
[2016-11-23] MEDS: Nicotine 21 MG PATCH.TD24 TD SCH (09:43)
[2016-11-23] MEDS: *HR* Morphine Immed Rel 30 MG TABLET PO PRN ×2 (09:48→23:34)
[2016-11-23] MEDS: Insulin DETEMIR 100 UNIT/ML X5UNITS SQ SCH ×2 (09:49→20:53)
[2016-11-23] MEDS: OXcarbazepine 150 MG TABLET PO SCH ×2 (09:49→20:51)
[2016-11-23] MEDS ORDERED: Lidocaine 1% 20 ML MDV INFILT ONE (10:52)
[2016-11-23] MEDS: Vancomycin 1,500 MG in D5% in Water 250 ML IVPB SCH (11:46)
--- NOTE | 2016-11-23 13:03 | Infectious Disease Progress No ---
Date of Encounter: 11/23/16 Time of Encounter: 13:03 - Assessment and Plan (1) Sepsis Current Visit: Yes Status: Acute The patient had three SIRS criteria plus HEATHER and acute encephalopathy on admission. Likely secondary to RLE cellulitis. Improved. WBC normalized. Continues to have intermittent tachycardia, but improved. Has been afebrile since admission. Blood cultures drawn 11/15/16 are negative x 2 sets. Qualifiers: Sepsis type: sepsis due to unspecified organism Qualified Code(s): A41.9 - Sepsis, unspecified organism (2) Cellulitis of right lower leg Current Visit: No Status: Acute Causative organism unclear. Concern for polymicrobial infection. Likely secondary to right foot tinea pedis vs. RLE wounds. Previous wound culture grew out GCS --> treated with IV Zosyn and Unasyn during the last hospitalization. Discharged on Augmentin x 10 days.--> failed oral antibiotics. Repeat wound cultures negative. CT of the RLE completed during the most recent hospitalization showed findings consistent with cellulitis, but he has had minimal improvement despite broad- spectrum antibiotics. Doppler of the RLE negative for thrombus. Continue wound care as outlined by the primary team. Continue Vancomycin IV (day 9). Pharmacy to dose. Goal trough approximately 15. Continue Zosyn 3.375 grams IV Q8H for gram negative and anaerobic coverage (day 5). Podiatry consulted and wound care orders noted. Continue aggressive wound care. May need to consider formal debridement and/or compression dressing. Duration of treatment depends on the clinical picture. Would recommend a total of 14 days of treatment. Given that the patient failed oral antibiotics previously, consider continuing IV antibiotics for the entire duration of treatment. Continue Vancomycin through 11/28/16, but would consider switching to Cefepime 2 grams IV Q12H when discharged due to Zosyn requiring Q6H dosing in the outpatient setting through 12/02/16. Monitor renal function and for drug toxicity and dose-adjust antibiotics. (3) HCAP (healthcare-associated pneumonia) Current Visit: Yes Status: Acute Assessment and plan: CXR completed 11/15/16 showed findings consistent with PNA vs. atelectasis. Continue Vanc and Zosyn as above. Levaquin given in the ED x 1 dose. Consider repeating CXR to evaluate. (4) Acute kidney injury Current Visit: Yes Status: Resolved Likely secondary to sepsis. Resolved. Continue to monitor closely and avoid nephrotoxins as able. Dose-adjust antibiotics based on creatinine clearance. (5) Altered mental status Current Visit: Yes Status: Acute Etiology unclear: sepsis vs. medication-induced vs. other. Not sure what the patient's baseline is. Improved. Management per the primary team. Qualifiers: Altered mental status type: unspecified Qualified Code(s): R41.82 - Altered mental status, unspecified (6) Ulcer of right foot Current Visit: Yes Status: Acute Podiatry consulted and following. Qualifiers: Non-pressure ulcer stage: limited to breakdown of skin Qualified Code(s): L97.511 - Non-pressure chronic ulcer of other part of right foot limited to breakdown of skin (7) Diabetes mellitus with nephropathy Current Visit: No Status: Chronic Recommend aggressive glucose monitoring and control to promote wound healing and prevent reinfection. (8) Tinea pedis Current Visit: Yes Status: Acute Consider topical treatment with lamisil or lotrimin. Management per the podiatry team. Qualifiers: Laterality: bilateral Qualified Code(s): B35.3 - Tinea pedis - Subjective Interval history: Patient seen and examined. No acute events noted overnight. Patient sitting up in the bedside chair. Patient much more alert today and able to participate in the exam. Denies fevers or chills. He complains of pain in his bilateral lower extremities, right worse than left. Denies chest pain, shortness of breath, or cough. Complains of nausea. Denies vomiting or diarrhea. Denies abdominal pain. Reports some difficulty starting his urine stream. Infect Dis PN-Objective Data - Labs CBC & Chem 7: 11/24/16 06:33 11/24/16 06:33 Labs: Laboratory Results - last 24 hr 11/22/16 11/22/16 11/22/16 08:01 12:27 16:03 WBC RBC Hgb Hct MCV MCH MCHC RDW Plt Count MPV Immature Gran % Seg Neutrophils % Lymphocytes % Monocytes % Eosinophils % Basophils % Neutrophils # Lymphocytes # Monocytes # Eosinophils # Basophils # Sodium Potassium Chloride Carbon Dioxide BUN Creatinine Est GFR ( Amer) Est GFR (Non-Af Amer) BUN/Creatinine Ratio Glucose POC Glucose 125 H 174 H 128 H Calculated Osmolality Calcium 11/22/16 11/23/16 11/23/16 19:54 04:32 04:32 WBC 10.9 RBC 3.30 L Hgb 9.3 L Hct 29.9 L MCV 90.6 MCH 28.2 MCHC 31.1 L RDW 14.8 H Plt Count 539 H MPV 9.6 Immature Gran % 1.9 Seg Neutrophils % 49.8 Lymphocytes % 34.2 Monocytes % 10.7 Eosinophils % 2.6 Basophils % 0.8 Neutrophils # 5.4 Lymphocytes # 3.7 Monocytes # 1.2 Eosinophils # 0.3 Basophils # 0.1 Sodium 137 Potassium 4.0 Chloride 96 L Carbon Dioxide 30 H BUN 14 Creatinine 1.18 Est GFR ( Amer) > 60 Est GFR (Non-Af Amer) > 60 BUN/Creatinine Ratio 12 Glucose 116 H POC Glucose 119 H Calculated Osmolality 285 Calcium 8.3 L 11/23/16 11/23/16 07:56 11:21 WBC RBC Hgb Hct MCV MCH MCHC RDW Plt Count MPV Immature Gran % Seg Neutrophils % Lymphocytes % Monocytes % Eosinophils % Basophils % Neutrophils # Lymphocytes # Monocytes # Eosinophils # Basophils # Sodium Potassium Chloride Carbon Dioxide BUN Creatinine Est GFR ( Amer) Est GFR (Non-Af Amer) BUN/Creatinine Ratio Glucose POC Glucose 101 H 285 H Calculated Osmolality Calcium Cultures: Cultures 11/15/16 10:40 Wound Culture - Final Right Leg No pathogens isolated. Serology 11/17/16 11/16/16 Range/Units 21:00 08:00 Urine Color Yellow Yellow (Yellow) Urine Clarity Cloudy A Cloudy A (Clear) Urine pH 6.0 6.0 (5.0-8.0) pH Units Ur Specific [place] 1.020 1.013 (1.010-1.025) Urine Protein 30 H Trace (Neg-Trace) mg/dL Urine Glucose (UA) 100 H 500 H (Normal) mg/dL Urine Ketones Negative Negative (Negative) mg/dL Urine Blood Small H Trace H (Negative) Urine Nitrite Negative Negative (Negative) Urine Bilirubin Negative Negative (Negative) Urine Urobilinogen Normal Normal (Normal) mg/dL Ur Leukocyte Esterase Negative Negative (Negative) Urine Microscopic RBC 0-3 0-3 (0-3) per hpf Urine Microscopic WBC 3-5 H 0-3 (0-3) per hpf Ur Squamous Epith Cells Many H Moderate H (None-Few) per lpf Urine Bacteria None Seen None Seen (None-Few) per hpf Hyaline Casts None Seen None Seen (None-Few) per lpf Ur Culture Indicated? NO (NO) Exam - Constitutional Vitals: Temp Pulse Resp BP Pulse Ox 98.3 F 102 20 117/71 95 11/23/16 08:02 11/23/16 08:02 11/23/16 08:02 11/23/16 08:02 11/23/16 08:02 General appearance: cooperative, no acute distress, obese - Head Head exam: Present: atraumatic, normal inspection, normocephalic - Eye Eye exam: Present: EOMI, normal appearance, PERRL Pupils: Present: normal accommodation - ENT ENT exam: Present: mucous membranes moist - Neck Neck exam: Present: normal inspection - Respiratory Respiratory exam: Present: CTAB. Absent: rales, respiratory distress, rhonchi, wheezes - Cardiovascular Cardiovascular exam: Present: RRR, +S1, +S2 - GI/Abdominal GI/Abdominal exam: Present: distended (obese), normal bowel sounds, soft, tenderness (generalized) - Extremities Exam Extremities exam: Present: pedal edema (2+ RLE), tenderness (RLE). Absent: joint swelling Additional comments: RLE erythematous with skin sloughing and multiple scabbed wounds to the posterior and posterior-lateral aspect of the lower portion of the RLE. - Neurological Exam Neurological exam: Present: alert, oriented X3, no focal deficits - Psychiatric Psychiatric exam: Present: normal affect, normal mood - Skin Skin exam: Present: dry, intact, normal color, warm Consult Discharge Plan - Plan Referrals: Alena Salinas DO [Primary Care Provider] - Prescriptions: OxyCODONE Immed Rel [Roxicodone 5 MG] 10 mg PO Q6HR PRN #10 tablet PRN Reason: Moderate Pain (4-6) Diazepam [Valium] 5 mg PO TID #10 tablet
--- NOTE | 2016-11-23 16:02 | Podiatry Progress Note ---
Date of Encounter: 11/23/16 Time of Encounter: 10:00 - Assessment and Plan (1) Cellulitis of right lower leg Current Visit: No Status: Acute Cellulitis of the RLE and foot appears to be secondary to a tinea infection and improving. Wounds are scabbing over and falling off. Agree with present antibiotic therapy to cover group C strep and recommend the addition of Diflucan 200 mg IV daily. Infectious Disease following. WBC: 10.9 and a febrile Dressings changes can be changed to once daily. Cleanse RLE daily with water and dynahex, pat dry, apply adaptic to wounds with 4x4 dry sterile gauze, kerilx , and coban or omar wrap. Healing partial thickness ulceration to the medial plantar aspect of the 1st MTPJ right foot, base of ulcer is pink, no probe to bone, no pus, no odor. CT of RLE did not show any fluid collection or abscess. Venous duplex of RLE was with in normal limits. Will continue to monitor patient closely. Consulted with Dr. France and agreeable to plan of care. Patient will need to be discharged with daily dressing changes consisting of water and dynahex, pat dry, apply adaptic to wounds with dry sterile 4x4 gauze, kerilx and coban or omar wrap. Patient will need to f/u in Podiatry clinic with in one week of discharge from the hospital. (2) Ulcer of right foot Current Visit: Yes Status: Acute Qualifiers: Non-pressure ulcer stage: limited to breakdown of skin Qualified Code(s): L97.511 - Non-pressure chronic ulcer of other part of right foot limited to breakdown of skin (3) DM type 2 with diabetic peripheral neuropathy Current Visit: No Status: Chronic Subjective Interval history: Patient is lying in bed upon arrival to room. Patient states his right leg is feeling better. Patient denies any fever or chills overnight. Patient states he is going to an ECF upon discharge from the hospital. Objective - Vital Signs Vital Signs: Vital Signs Temp Pulse Resp BP Pulse Ox 11/23/16 15:46 98.1 F 60 16 99/55 98 11/23/16 08:02 98.3 F 102 20 117/71 95 11/23/16 04:03 98.6 F 96 16 106/69 96 11/22/16 23:17 98.3 F 101 16 124/75 96 11/22/16 19:38 98.0 F 94 18 118/72 96 11/22/16 17:40 97.9 F 97 16 135/85 96 Intake and Output 11/23/16 11/23/16 11/23/16 07:59 15:59 23:59 Intake Total 820 / 820 380 / 380 Output Total 825 / 825 500 / 500 Balance -5 / -5 -120 / -120 Intake: IV Fluids 100 / 100 Zosyn 3.375 GM In 100 / 100 Dextrose 5% (Minibag+) 100 ML 100 ML @ 25 mls/hr IVPB Q8HR [facility] Rx#: [id number] Oral 720 / 720 380 / 380 Output: Urine 825 / 825 500 / 500 Other: Meal Lunch Percent of Meal Consumed 25% Weight 134.2 kg Blood Glucose* 285 Patient Weight 11/23/16 23:59 Weight 134.2 kg - Exam Exam: General: A&O x3, calm and cooperative. Vascular: pedal pulses 1+/4, CFT is immediate to digits #1 through #5 bilaterally. Neurological: Decreased sensation to light touch. Integument: RLE and right foot is globally erythematous and edematous. White bullous lesions to the lateral aspect of the right foot, lesions to the to the right lateral and posterior leg are scabbing over and falling off. Skin is warm to touch. Healing ulceration to the medial aspect of the 1st MTPJ right foot, no pus, no odor, no probe to bone. No sinus tracts, no tunneling, no fluctuance. Toe nails #1 through #5 right, #2 through #5 left are thick, elongated, and mycotic. history of left great toe amputation. - Lab Result Diagrams: 11/23/16 04:32 11/23/16 04:32 Labs: Abnormal lab results RBC 3.30 M/mcL (4.19-5.50) L 11/23/16 04:32 Hgb 9.3 g/dL (12.9-16.9) L 11/23/16 04:32 Hct 29.9 % (37.5-50.1) L 11/23/16 04:32 MCHC 31.1 g/dL (31.6-35.5) L 11/23/16 04:32 RDW 14.8 % (11.5-14.5) H 11/23/16 04:32 Plt Count 539 K/mcL (140-400) H 11/23/16 04:32 Band Neutrophils % 9.1 % (0-4) H 11/16/16 03:37 Metamyelocytes % 1.8 % (0) H 11/16/16 03:37 Reactive Lymphocytes Present (Not Present) A 11/15/16 04:50 Polychromasia 1+ (Not Present) A 11/15/16 04:50 Anisocytosis 1+ (Not Present) A 11/16/16 03:37 PT 13.1 Seconds (9.4-12.1) H 11/15/16 04:50 Chloride 96 mEq/L (98-109) L 11/23/16 04:32 Carbon Dioxide 30 mEq/L (19-29) H 11/23/16 04:32 Glucose 116 mg/dL (70-99) H 11/23/16 04:32 POC Glucose 285 (58-89) H 11/23/16 11:21 Calcium 8.3 mg/dL (8.6-10.8) L 11/23/16 04:32 Magnesium 1.5 mg/dL (1.6-2.6) L 11/15/16 04:50 Direct Bilirubin 0.9 mg/dL (0.0-0.5) H 11/15/16 04:50 AST 52 Units/L (5-34) H 11/15/16 04:50 Alkaline Phosphatase 530 Units/L (38-126) H 11/15/16 04:50 B-Natriuretic Peptide 167 pg/mL (0-100) H 11/18/16 05:14 Albumin 2.2 g/dL (3.5-5.0) L 11/15/16 04:50 Globulin 5.1 g/dL (2.4-3.5) H 11/15/16 04:50 Albumin/Globulin Ratio 0.4 (1.1-2.2) L 11/15/16 04:50 Urine Clarity Cloudy (Clear) A 11/17/16 21:00 Urine Protein 30 mg/dL (Neg-Trace) H 11/17/16 21:00 Urine Glucose (UA) 100 mg/dL (Normal) H 11/17/16 21:00 Urine Blood Small (Negative) H 11/17/16 21:00 Urine Microscopic WBC 3-5 per hpf (0-3) H 11/17/16 21:00 Ur Squamous Epith Cells Many per lpf (None-Few) H 11/17/16 21:00 Vancomycin Trough 25.5 mcg/mL (10-20) H* 11/21/16 21:31 Consult Discharge Plan - Plan Referrals: Alena Salinas DO [Primary Care Provider] -
[2016-11-23] MEDS: Fluconazole 200 MG/100 ML 200 MG/100 ML BAG IVPB SCH (17:50)
--- NOTE | 2016-11-23 22:14 | Internal Med Progress Note ---
Date of Encounter: 11/23/16 Time of Encounter: 10:00 - Assessment and plan (1) Cellulitis of right lower leg Current Visit: No Status: Acute Assessment and plan: Continue with Zosyn and vancomycin per ID recommendations. He has a PICC line, plan for discharge back to correction with IV antibiotics. We will repeat vancomycin dose in the morning. Cultures are currently negative. I appreciate ID input and podiatry recommendations. Continue dressing changes as recommended and continue IV Diflucan for fungal coverage. Patient's lower extremity wounds are improving significantly. He will need a prolonged IV antibiotic course and diligent wound care which she will not be able to provide for himself and discharged home, given his poor medical compliance. We will initiate correction placement. Up until today he has had a one-to-one safety observation sitter. Will discontinue safety observation. Continue with oral morphine for leg pain and prescribed on discharge to correction. (2) Morbid obesity with BMI of 40.0-44.9, adult Current Visit: No Status: Chronic Assessment and plan: Outpatient weight loss regimen. (3) Acute and chronic respiratory failure with hypoxia Current Visit: No Status: Acute Assessment and plan: Continue oxygen therapy (4) DM type 2 with diabetic peripheral neuropathy Current Visit: No Status: Chronic Assessment and plan: Insulin sliding scale and pre-meal coverage. Increase Levemir insulin to 14 units twice a day. (5) HCAP (healthcare-associated pneumonia) Current Visit: Yes Status: Acute Assessment and plan: Zosyn and vancomycin. Follow-up blood cultures - negative. Sputum culture not available. He had completed a course for healthcare associated pneumonia. He is at high risk for morbidity and complications due to treatment with IV vancomycin which requires blood level monitoring for toxicity. - Subjective Interval history: 11/23/2016: Patient reports severe bilateral leg pain he says morphine is the only thing that works for his pain. Denies associated weakness or fever. 11/22/2016: Patient is more awake, reports bilateral leg pain below the knee described as aching and burning secondary to neuropathy. He says oxycodone does not alleviate his pain. 11/21: History still limited by confusion and schizophrenia. He denies leg pain. Denies fevers chills shortness of breath and chest pain. 11/19/2016: Limited by confusion and schizophrenia. The patient denies leg pain at rest 11/18/2016: Patient is more awake, he reports improvement in right lower extremity swelling and pain. History is limited due to advanced schizophrenia. 11/17/2016 Patient cannot provide history due to encephalopathy and poor baseline mental status secondary to schizophrenia and sedation. He has been admitted for worsening lower extremity swelling and pain. He is being treated for cellulitis and sepsis. - Constitutional Vitals: Temp Pulse Resp BP Pulse Ox 98.1 F 60 16 99/55 98 11/23/16 15:46 11/23/16 15:46 11/23/16 15:46 11/23/16 15:46 11/23/16 15:46 General appearance: Present: A&O X 3, morbidly obese - Eye Eye exam: Present: PERRL, conjuntiva pink, sclera anicteric Pupils: Present: PERRL - Respiratory Respiratory exam: Present: CTAB. Absent: accessory muscle use, rales, rhonchi, wheezes - Cardiovascular Cardiovascular exam: Present: RRR, +S1, +S2. Absent: diastolic murmur, gallop, rubs, systolic murmur - GI/Abdominal GI/Abdominal exam: Present: normal bowel sounds, soft, no peritoneal signs. Absent: distended, tenderness - Skin Skin exam: Present: dry, erythema (Right lower extremity erythema and crusted lesions improving over the last 3 days), intact Internal Medicine: Result - Labs CBC & Chem 7: 11/23/16 04:32 11/23/16 04:32 Labs: Short CBC 11/23/16 Range/Units 04:32 WBC 10.9 (4.3-11.1) K/mcL Hgb 9.3 L (12.9-16.9) g/dL Hct 29.9 L (37.5-50.1) % Plt Count 539 H (140-400) K/mcL Neutrophils # 5.4 (1.6-8.9) K/mcL BMP 11/23/16 04:32 Sodium 137 Potassium 4.0 Chloride 96 L Carbon Dioxide 30 H BUN 14 Creatinine 1.18 Glucose 116 H Calcium 8.3 L - ABG Interpretation ABG results: PT/INR, D-dimer PT 13.1 Seconds (9.4-12.1) H 11/15/16 04:50 Consult Discharge Plan - Plan Referrals: Alena Salinas DO [Primary Care Provider] -
[2016-11-23] MEDS: Ondansetron 4 MG/2 ML VIAL IVP PRN (23:25)
[2016-11-24] MEDS: *HR* Enoxaparin 40 MG/0.4 ML SYRINGE SQ SCH (06:10)
[2016-11-24 06:51] LABS: Basophils # 0.1 K/mcL (0.0-0.2); Basophils % 0.7 %; Eosinophils # 0.3 K/mcL (0.0-0.6); Eosinophils % 2.6 %; Hematocrit 33.3 % (37.5-50.1); Hemoglobin 10.3 g/dL (12.9-16.9); Immature Granulocytes % 1.4 % (0-4); Lymphocytes # 3.2 K/mcL (0.6-4.6); Lymphocytes % 31.9 %; Mean Corpuscular HGB Conc 30.9 g/dL (31.6-35.5); Mean Corpuscular Hemoglobin 28.5 pg (28.0-33.3); Mean Corpuscular Volume 92.2 fL (83.0-100.0); Mean Platelet Volume 9.6 fL (9.4-12.4); Monocytes # 1.1 K/mcL (0.0-1.3); Monocytes % 10.6 %; Neutrophils # 5.2 K/mcL (1.6-8.9); Platelet Count 557 K/mcL (140-400); Red Blood Count 3.61 M/mcL (4.19-5.50); Red Cell Distribution Width 14.7 % (11.5-14.5); Segmented Neutrophils % 52.8 %
[2016-11-24 07:11] LABS: BUN/Creatinine Ratio 13 (6-26); Blood Urea Nitrogen 15 mg/dL (8-26); Calcium 8.9 mg/dL (8.6-10.8); Carbon Dioxide 32 mEq/L (19-29); Chloride 95 mEq/L (98-109); Glucose 121 mg/dL (70-99); Osmolality,Calculated 286 (280-300); Potassium 4.6 mEq/L (3.5-4.5); Sodium 137 mEq/L (136-145); eGFR For African Americans > 60 (> 60); eGFR For Non-African Americans > 60 (> 60)
[2016-11-24 07:19] LABS: Vancomycin,Peak 15.2 mcg/mL (20-40)
[2016-11-24] MEDS: Fluconazole 200 MG/100 ML 200 MG/100 ML BAG IVPB SCH (08:21)
[2016-11-24] MEDS: Piperacillin/Tazobactam 3.375 GM in D5% in Water (Mini-Bag+) 100 ML IVPB SCH (08:24)
[2016-11-24] MEDS: Nicotine 21 MG PATCH.TD24 TD SCH (08:25)
[2016-11-24] MEDS: *HR* Metformin 500 MG TABLET PO SCH ×2 (08:25→15:58)
[2016-11-24] MEDS: Gabapentin 300 MG CAPSULE PO SCH ×2 (08:26→15:58)
[2016-11-24] MEDS: Metoprolol XL (24 HR) Succ 25 MG TAB.ER.24H PO SCH (08:26)
[2016-11-24] MEDS: diazePAM 5 MG TABLET PO SCH ×2 (08:26→15:58)
[2016-11-24] MEDS: Furosemide 20 MG TABLET PO SCH (08:26)
[2016-11-24] MEDS: OXcarbazepine 150 MG TABLET PO SCH (08:26)
[2016-11-24] MEDS: Magnesium Oxide 400 MG TABLET PO SCH (08:26)
[2016-11-24] MEDS: Insulin LISPRO 300 UNITS/3 ML VIAL SQ SCH ×2 (08:45→12:58)
[2016-11-24] MEDS: Insulin DETEMIR 100 UNIT/ML X5UNITS SQ SCH (08:53)
[2016-11-24] MEDS ORDERED: Vancomycin 1,750 MG in D5% in Water 500 ML IVPB SCH (12:00)
[2016-11-24] MEDS: *HR* Morphine Immed Rel 30 MG TABLET PO PRN (12:56)
--- NOTE | 2016-11-24 13:48 | Infectious Disease Progress No ---
Date of Encounter: 11/24/16 Time of Encounter: 13:46 - Assessment and Plan (1) Sepsis Current Visit: Yes Status: Acute The patient had three SIRS criteria plus HEATHER and acute encephalopathy on admission. Likely secondary to RLE cellulitis. Improved. WBC normalized. Continues to have intermittent tachycardia, but improved. Has been afebrile since admission. Blood cultures drawn 11/15/16 are negative x 2 sets. Qualifiers: Qualified Code(s): A41.9 - Sepsis, unspecified organism (2) Cellulitis of right lower leg Current Visit: No Status: Acute Causative organism unclear. Concern for polymicrobial infection. Likely secondary to right foot tinea pedis vs. RLE wounds. Previous wound culture grew out GCS --> treated with IV Zosyn and Unasyn during the last hospitalization. Discharged on Augmentin x 10 days.--> failed oral antibiotics. Repeat wound cultures negative. CT of the RLE completed during the most recent hospitalization showed findings consistent with cellulitis, but he has had minimal improvement despite broad- spectrum antibiotics. Doppler of the RLE negative for thrombus. Continue wound care as outlined by the primary team. Continue Vancomycin IV (day 10). Pharmacy to dose. Goal trough approximately 15. Continue Zosyn 3.375 grams IV Q8H for gram negative and anaerobic coverage (day 6). Fluconazole started per Podiatry's recommendations. Consider switching to PO. Podiatry consulted and wound care orders noted. Continue aggressive wound care. May need to consider formal debridement and/or compression dressing. Duration of treatment depends on the clinical picture. Would recommend a total of 14 days of treatment. Given that the patient failed oral antibiotics previously, consider continuing IV antibiotics for the entire duration of treatment. Continue Vancomycin through 11/28/16, but would consider switching to Cefepime 2 grams IV Q12H when discharged due to Zosyn requiring Q6H dosing in the outpatient setting through 12/02/16. Monitor renal function and for drug toxicity and dose-adjust antibiotics. (3) HCAP (healthcare-associated pneumonia) Current Visit: Yes Status: Acute CXR completed 11/15/16 showed findings consistent with PNA vs. atelectasis. Continue Vanc and Zosyn as above. Levaquin given in the ED x 1 dose. Consider repeating CXR to evaluate. (4) Acute kidney injury Current Visit: Yes Status: Resolved Likely secondary to sepsis. Resolved. Continue to monitor closely and avoid nephrotoxins as able. Dose-adjust antibiotics based on creatinine clearance. (5) Altered mental status Current Visit: Yes Status: Acute Etiology unclear: sepsis vs. medication-induced vs. other. Not sure what the patient's baseline is. Improved. Management per the primary team. Qualifiers: Qualified Code(s): R41.82 - Altered mental status, unspecified (6) Ulcer of right foot Current Visit: Yes Status: Acute Podiatry consulted and following. Qualifiers: Qualified Code(s): L97.511 - Non-pressure chronic ulcer of other part of right foot limited to breakdown of skin (7) Diabetes mellitus with nephropathy Current Visit: No Status: Chronic Recommend aggressive glucose monitoring and control to promote wound healing and prevent reinfection. (8) Tinea pedis Current Visit: Yes Status: Acute Consider topical treatment with lamisil or lotrimin. Management per the podiatry team. Qualifiers: Qualified Code(s): B35.3 - Tinea pedis - Subjective Interval history: Patient seen and examined. No acute events noted overnight. Patient sitting up on the side of the bed. Patient much more alert today and able to participate in the exam. Denies fevers or chills. He complains of pain in his bilateral lower extremities, right worse than left. Denies chest pain, shortness of breath , or cough. Complains of nausea after meals. Denies vomiting or diarrhea. Reports some mild, intermittent abdominal cramping. Reports some difficulty starting his urine stream. Infect Dis PN-Objective Data - Labs CBC & Chem 7: 11/24/16 06:33 11/24/16 06:33 Labs: Laboratory Results - last 24 hr 11/21/16 11/21/16 11/21/16 07:53 12:09 15:52 WBC RBC Hgb Hct MCV MCH MCHC RDW Plt Count MPV Immature Gran % Seg Neutrophils % Lymphocytes % Monocytes % Eosinophils % Basophils % Neutrophils # Lymphocytes # Monocytes # Eosinophils # Basophils # Sodium Potassium Chloride Carbon Dioxide BUN Creatinine Est GFR ( Amer) Est GFR (Non-Af Amer) BUN/Creatinine Ratio Glucose POC Glucose 110 H 180 H 174 H Calculated Osmolality Calcium Vancomycin Peak 11/23/16 11/24/16 11/24/16 16:57 06:33 06:33 WBC 9.9 RBC 3.61 L Hgb 10.3 L Hct 33.3 L MCV 92.2 MCH 28.5 MCHC 30.9 L RDW 14.7 H Plt Count 557 H MPV 9.6 Immature Gran % 1.4 Seg Neutrophils % 52.8 Lymphocytes % 31.9 Monocytes % 10.6 Eosinophils % 2.6 Basophils % 0.7 Neutrophils # 5.2 Lymphocytes # 3.2 Monocytes # 1.1 Eosinophils # 0.3 Basophils # 0.1 Sodium 137 Potassium 4.6 H Chloride 95 L Carbon Dioxide 32 H BUN 15 Creatinine 1.19 Est GFR ( Amer) > 60 Est GFR (Non-Af Amer) > 60 BUN/Creatinine Ratio 13 Glucose 121 H POC Glucose 85 Calculated Osmolality 286 Calcium 8.9 Vancomycin Peak 15.2 L Cultures: Cultures 11/15/16 10:40 Wound Culture - Final Right Leg No pathogens isolated. Serology 11/17/16 11/16/16 Range/Units 21:00 08:00 Urine Color Yellow Yellow (Yellow) Urine Clarity Cloudy A Cloudy A (Clear) Urine pH 6.0 6.0 (5.0-8.0) pH Units Ur Specific [place] 1.020 1.013 (1.010-1.025) Urine Protein 30 H Trace (Neg-Trace) mg/dL Urine Glucose (UA) 100 H 500 H (Normal) mg/dL Urine Ketones Negative Negative (Negative) mg/dL Urine Blood Small H Trace H (Negative) Urine Nitrite Negative Negative (Negative) Urine Bilirubin Negative Negative (Negative) Urine Urobilinogen Normal Normal (Normal) mg/dL Ur Leukocyte Esterase Negative Negative (Negative) Urine Microscopic RBC 0-3 0-3 (0-3) per hpf Urine Microscopic WBC 3-5 H 0-3 (0-3) per hpf Ur Squamous Epith Cells Many H Moderate H (None-Few) per lpf Urine Bacteria None Seen None Seen (None-Few) per hpf Hyaline Casts None Seen None Seen (None-Few) per lpf Ur Culture Indicated? NO (NO) Exam - Constitutional Vitals: Temp Pulse Resp BP Pulse Ox 98 F 98 14 107/71 97 11/24/16 11:44 11/24/16 11:44 11/24/16 11:44 11/24/16 11:44 11/24/16 11:44 General appearance: cooperative, no acute distress, obese - Head Head exam: Present: atraumatic, normal inspection, normocephalic - Eye Eye exam: Present: EOMI, normal appearance, PERRL Pupils: Present: normal accommodation - ENT ENT exam: Present: mucous membranes moist - Neck Neck exam: Present: normal inspection - Respiratory Respiratory exam: Present: CTAB. Absent: rales, respiratory distress, rhonchi, wheezes - Cardiovascular Cardiovascular exam: Present: RRR, +S1, +S2 - GI/Abdominal GI/Abdominal exam: Present: distended (obese), normal bowel sounds, soft, tenderness (umbilical) - Extremities Exam Extremities exam: Present: pedal edema (1+ LLE), tenderness (RLE). Absent: joint swelling Additional comments: Dressing to the RLE C/D/I. - Neurological Exam Neurological exam: Present: alert, oriented X3, no focal deficits - Psychiatric Psychiatric exam: Present: normal affect, normal mood - Skin Skin exam: Present: dry, intact, normal color, warm Consult Discharge Plan - Plan Referrals: Alena Salinas DO [Primary Care Provider] -
--- NOTE | 2016-11-24 13:49 | Discharge Summary ---
Date of Encounter: 11/24/16 Time of Encounter: 13:55 - Discharge Diagnosis (1) Cellulitis of right lower leg Priority: Primary Status: Acute (2) Sepsis affecting skin Priority: Primary Status: Acute (3) Acute kidney injury superimposed on CKD Priority: Secondary Status: Acute (4) DM type 2 with diabetic peripheral neuropathy Priority: Secondary Status: Chronic (5) Morbid obesity with BMI of 40.0-44.9, adult Priority: Secondary Status: Chronic - Discharge Medications Prescriptions: OxyCODONE Immed Rel [Roxicodone 5 MG] 10 mg PO Q6HR PRN #10 tablet PRN Reason: Moderate Pain (4-6) Diazepam [Valium] 5 mg PO TID #10 tablet Home Medications: Metformin [Glucophage] 1,000 mg PO BIDWM 08/01/15 [History] Furosemide [Lasix] 20 mg PO BID 12/17/15 [History] Amitriptyline HCl 100 mg PO HS 11/09/16 [History] Benztropine Mesylate 2 mg PO BID 11/09/16 [History] HydrOXYzine Pamoate 25 mg PO BID PRN 11/09/16 [History] Lisinopril 2.5 mg PO DAILY 11/09/16 [History] Potassium Chloride [K-Tab ER] 10 meq PO BID 11/09/16 [History] Simvastatin [Zocor] 20 mg PO HS 11/09/16 [History] Gabapentin [Neurontin] 1,600 mg PO BID 11/12/16 [History] Gabapentin [Neurontin] 400 mg PO 1300 11/12/16 [History] Pantoprazole Sodium [Protonix] 40 mg PO DAILY 11/12/16 [History] Diazepam [Valium] 5 mg PO TID #30 tablet 11/14/16 [Rx] Metoprolol XL (24 HR) Succ [Toprol Xl] 25 mg PO DAILY #30 tab.er.24h 11/14/16 [ Rx] Oxcarbazepine 300 mg PO BID #60 tablet 11/14/16 [Rx] Diazepam [Valium] 5 mg PO TID #10 tablet 11/24/16 [Rx] OxyCODONE Immed Rel [Roxicodone 5 MG] 10 mg PO Q6HR PRN #10 tablet 11/24/16 [Rx] Allergies/Adverse Reactions: Allergies aspirin Allergy (Verified 10/22/16 20:35) Rash codeine Allergy (Verified 10/22/16 20:35) Rash iodine Allergy (Verified 10/22/16 20:35) See Comments Date of admission: 11/15/16 08:36 Primary care physician: Alena Salinas DO Consults: 11/16/16 08:44 Consult to Media Clerk [CONS] Routine Reason for SW Consult: Return to [facility] 11/18/16 14:24 Consult to Podiatry [CONS] Routine Consulting Provider: [facility] Reason for Consult: leg and foot cellulitis Time Notified: 14:25 Call Completed: Yes 11/18/16 14:25 Consult to Infectious Diseases [CONS] Routine Consulting Provider: Infectious Disease [facility] Reason for Consult: unhealing right lower leg cellulitis. Time Notified: 14:26 Call Completed: No 11/23/16 10:50 Consult to Physical Therapy [CONS] Routine Comment: Evaluate, develop and implement POC 11/23/16 10:51 Consult to Occupational Therapy [CONS] Routine Comment: Evaluate, develop and implement POC 11/23/16 10:52 Consult to Invasive Line Access Team [CONS] Routine Reason for Consult: Picc Line Insertion Line Type: PICC Discharging clinician: Yonatan Hurley - Patient Status Disposition: Transfer SNF Condition: Good Functional capacity at discharge: wheelchair bound Overall status at discharge: patient is progressing back to baseline - Discharge Instructions Follow Up With: Alena Salinas DO [Primary Care Provider] - Ismael France DPM [Partnered Physician] - Jennifer Dias, INJECTION MACHINE OPERATOR [Advanced Practice Nurse] - - Diet and Activity Activity: as per physical therapy, increase activity as tolerated Diet: diabetic diet Interval History: Mr. Cormier is a 61 year old male with a past medical history of diabetes type 2 refusing to use insulin, GERD, CK D3, recently discharged from the hospital on 11/14/2016. During his last hospitalization he was being treated for right lower extremity cellulitis with 2 cultures that were positive for Streptococcus group C sensitive to penicillin. He was being treated with Unasyn, prior to that he was given vancomycin and Zosyn that was switched to cefepime. The day before his admission patient insisted on being discharged and threatened to leave and go home, we discussed the possibility to send him to a facility as he needed assistance with his leg. At that facility, the patient developed fever of apparently 102.8. Presented with altered mental status but also he has a history of schizophrenia, bipolar disorder, depression and PTSD. The right lower extremity anterior area appears slightly better but the lateral side appears more erythematosus. He says that the leg pain has improved since yesterday but his entire extremity below the knee is erythematosus, swollen and having yellowish crusts in several spots. Patient denies any chest pain, no abdominal pain, no dysuria. His creatinine has increased again from 1.02 up to 1.85, white blood cell count was 14 in heart rate was 113. He accepted to be hospitalized this time. Has been bringing up minimal phlegm, chest x-ray shows vascular congestion/pulmonary edema that may be acute in the left lower lobe infiltrate/possible pneumonia. He was started on vancomycin, Zosyn and Levaquin in the emergency room Hospital course: patient was hospitalized. Patient was started on IV abx. ID was consulted. Patient responded well IV abx. no need for any drainage as there was no collection. patient improved with IV abx which were recommended by ID plan for rehab in [place] for 2 weeks. IV abx Vanco 1750 mg once a day for 5 days IV cefepeme 2 gram BID for 7 days along with fluconazole. Controlled substances prescribed need to follow up with ID as outpatient Need to follow up with PCP/Podiatry. all questions answered. - Time Spent with Patient Total time spent providing and/or coordinating discharge services: - Constitutional Vitals: Temp Pulse Resp BP Pulse Ox 98 F 98 14 107/71 97 11/24/16 11:44 11/24/16 11:44 11/24/16 11:44 11/24/16 11:44 11/24/16 11:44 General appearance: Present: A&O X 3, morbidly obese - Head Head exam: Present: atraumatic, normocephalic - Eye Eye exam: Present: PERRL, conjuntiva pink, sclera anicteric Pupils: Present: PERRL - Neck Neck exam general surgery: Present: supple, trachea midline. Absent: lymphadenopathy - Respiratory Respiratory exam: Present: CTAB. Absent: accessory muscle use, rales, rhonchi, wheezes - Cardiovascular Cardiovascular exam: Present: RRR, +S1, +S2. Absent: diastolic murmur, gallop, rubs, systolic murmur - GI/Abdominal GI/Abdominal exam: Present: normal bowel sounds, soft, no peritoneal signs. Absent: distended, tenderness - Extremities Exam Extremities exam: Present: warm, radial pulses palpable and symetrical. Absent : calf tenderness, cyanotic, pedal edema - Neurological Exam Neurological exam: Present: CN II-XII intact, oriented X3, no focal deficits. Absent: pronater drift, facial droop, speech deficit - Skin Skin exam: Present: dry, intact
--- NOTE | 2016-11-24 14:18 | Physician Discharge Referral ---
ExtendedCare Referral Info Transfer To: [facility] - Diagnosis (1) Cellulitis of right lower leg Priority: Primary Status: Acute (2) Sepsis affecting skin Priority: Primary Status: Acute (3) Acute kidney injury superimposed on CKD Priority: Primary Status: Acute (4) DM type 2 with diabetic peripheral neuropathy Priority: Secondary Status: Chronic (5) Morbid obesity with BMI of 40.0-44.9, adult Priority: Secondary Status: Chronic - Transfer Medications Prescriptions: OxyCODONE Immed Rel [Roxicodone 5 MG] 10 mg PO Q6HR PRN #10 tablet PRN Reason: Moderate Pain (4-6) Diazepam [Valium] 5 mg PO TID #10 tablet Home Medications: Metformin [Glucophage] 1,000 mg PO BIDWM 08/01/15 [History] Furosemide [Lasix] 20 mg PO BID 12/17/15 [History] Amitriptyline HCl 100 mg PO HS 11/09/16 [History] Benztropine Mesylate 2 mg PO BID 11/09/16 [History] HydrOXYzine Pamoate 25 mg PO BID PRN 11/09/16 [History] Lisinopril 2.5 mg PO DAILY 11/09/16 [History] Potassium Chloride [K-Tab ER] 10 meq PO BID 11/09/16 [History] Simvastatin [Zocor] 20 mg PO HS 11/09/16 [History] Gabapentin [Neurontin] 1,600 mg PO BID 11/12/16 [History] Gabapentin [Neurontin] 400 mg PO 1300 11/12/16 [History] Pantoprazole Sodium [Protonix] 40 mg PO DAILY 11/12/16 [History] Diazepam [Valium] 5 mg PO TID #30 tablet 11/14/16 [Rx] Metoprolol XL (24 HR) Succ [Toprol Xl] 25 mg PO DAILY #30 tab.er.24h 11/14/16 [ Rx] Oxcarbazepine 300 mg PO BID #60 tablet 11/14/16 [Rx] Diazepam [Valium] 5 mg PO TID #10 tablet 11/24/16 [Rx] OxyCODONE Immed Rel [Roxicodone 5 MG] 10 mg PO Q6HR PRN #10 tablet 11/24/16 [Rx] Allergies/Adverse Reactions: Allergies aspirin Allergy (Verified 10/22/16 20:35) Rash codeine Allergy (Verified 10/22/16 20:35) Rash iodine Allergy (Verified 10/22/16 20:35) See Comments - Respiratory Orders Smoking Cessation: Smoking cessation has been advised. For more information, call the [place] Tobacco Quit Line at 7-727-MTBN-NOW. - Mobility Orders Chair - Rehabiliation Orders Rehab Potential: Good Rehab Orders: Evaluation for Physical Therapy, Evaluation for Occupational Therapy - Treatments Skin tear care topically daily PRN per policy List/Other: wound care - Diet Orders House Supplement per Dietary: diabetic diet. CERTIFICATION: I certify that the transfer of the above named patient to an Extended Care Facility is necessary for the continuing treatment of the diagnosis listed. The above information is true and accurate reflection of patient's current condition. Confidential - Redisclosure prohibited without a patient's written consent.
--- NOTE | 2016-11-24 15:51 | Podiatry Progress Note ---
Date of Encounter: 11/24/16 Time of Encounter: 12:20 - Assessment and Plan (1) Cellulitis of right lower leg Current Visit: No Status: Acute Cellulitis of the RLE and foot appears to be secondary to a tinea infection and improving. Wounds are scabbing over and falling off. Agree with present antibiotic therapy to cover group C strep and recommend the addition of Diflucan 200 mg IV daily. Infectious Disease following. WBC: 9.9 Dressings changes can be changed to once daily. Cleanse RLE daily with water and dynahex, pat dry, apply adaptic to wounds with 4x4 dry sterile gauze, kerilx , and coban or omar wrap. Healing partial thickness ulceration to the medial plantar aspect of the 1st MTPJ right foot, base of ulcer is pink, no probe to bone, no pus, no odor. CT of RLE did not show any fluid collection or abscess. Venous duplex of RLE was with in normal limits. Will continue to monitor patient closely. Consulted with Dr. France and agreeable to plan of care. Patient will need to be discharged with daily dressing changes consisting of water and dynahex, pat dry, apply adaptic to wounds with dry sterile 4x4 gauze, kerilx and coban or omar wrap. Patient will need to f/u in Podiatry clinic with in one week of discharge from the hospital. (2) Ulcer of right foot Current Visit: Yes Status: Acute Ulceration to the medial aspect of the first metatarsal head right foot appears to be healing. Ulceration is dry, no periwound erythema. Continue wound care as ordered. Patient will need follow-up in wound care with in one week of discharge from the hospital. Qualifiers: Non-pressure ulcer stage: limited to breakdown of skin Qualified Code(s): L97.511 - Non-pressure chronic ulcer of other part of right foot limited to breakdown of skin (3) DM type 2 with diabetic peripheral neuropathy Current Visit: No Status: Chronic Subjective Interval history: Patient is sitting up in chair upon arrival to room. Patient states his right leg is feeling better. Patient denies any fever or chills overnight. Patient states he is going to [place] upon discharge from the hospital. Objective - Vital Signs Vital Signs: Vital Signs Temp Pulse Resp BP Pulse Ox 11/24/16 11:44 98 F 98 14 107/71 97 11/24/16 11:21 98.1 F 96 12 107/64 97 11/24/16 07:07 97.9 F 99 24 97/54 95 11/24/16 04:00 97.8 F 100 19 93/78 94 L 11/23/16 23:30 98 16 111/73 97 11/23/16 22:00 97.9 F 102 16 96/49 96 Intake and Output 11/23/16 11/24/16 11/24/16 23:59 07:59 15:59 Intake Total 800 / 800 220 / 220 795 / 795 Output Total 300 / 300 650 / 650 450 / 450 Balance 500 / 500 -430 / -430 345 / 345 Intake: IV Fluids 200 / 200 100 / 100 195 / 195 Diflucan 200 MG/100 ML 100 / 100 97 / 97 200 mg In 100 ml @ 100 mls/hr IVPB DAILY [facility] Rx# :[id number] Zosyn 3.375 GM In 100 / 100 100 / 100 98 / 98 Dextrose 5% (Minibag+) 100 ML 100 ML @ 25 mls/hr IVPB Q8HR [facility] Rx#: [id number] Oral 600 / 600 120 / 120 600 / 600 Output: Urine 300 / 300 650 / 650 450 / 450 Other: Meal Dinner Lunch Percent of Meal Consumed 75% 60% # Voids 1 Weight 134 kg Blood Glucose* 98 130 180 Patient Weight 11/24/16 23:59 Weight 134 kg - Exam Exam: General: A&O x3, calm and cooperative. Vascular: pedal pulses 1+/4, CFT is immediate to digits #1 through #5 bilaterally. Neurological: Decreased sensation to light touch. Integument: RLE and right foot is globally erythematous and edematous. White bullous lesions to the lateral aspect of the right foot, lesions to the to the right lateral and posterior leg are scabbing over and falling off. Skin is warm to touch. Healing ulceration to the medial aspect of the 1st MTPJ right foot, no pus, no periwound erythema, no odor, no probe to bone. No sinus tracts , no tunneling, no fluctuance. Toe nails #1 through #5 right, #2 through #5 left are thick, elongated, and mycotic. history of left great toe amputation. - Lab Result Diagrams: 11/24/16 06:33 11/24/16 06:33 Labs: Abnormal lab results RBC 3.61 M/mcL (4.19-5.50) L 11/24/16 06:33 Hgb 10.3 g/dL (12.9-16.9) L 11/24/16 06:33 Hct 33.3 % (37.5-50.1) L 11/24/16 06:33 MCHC 30.9 g/dL (31.6-35.5) L 11/24/16 06:33 RDW 14.7 % (11.5-14.5) H 11/24/16 06:33 Plt Count 557 K/mcL (140-400) H 11/24/16 06:33 Band Neutrophils % 9.1 % (0-4) H 11/16/16 03:37 Metamyelocytes % 1.8 % (0) H 11/16/16 03:37 Reactive Lymphocytes Present (Not Present) A 11/15/16 04:50 Polychromasia 1+ (Not Present) A 11/15/16 04:50 Anisocytosis 1+ (Not Present) A 11/16/16 03:37 PT 13.1 Seconds (9.4-12.1) H 11/15/16 04:50 Potassium 4.6 mEq/L (3.5-4.5) H 11/24/16 06:33 Chloride 95 mEq/L (98-109) L 11/24/16 06:33 Carbon Dioxide 32 mEq/L (19-29) H 11/24/16 06:33 Glucose 121 mg/dL (70-99) H 11/24/16 06:33 POC Glucose 180 (58-89) H 11/24/16 11:48 Magnesium 1.5 mg/dL (1.6-2.6) L 11/15/16 04:50 Direct Bilirubin 0.9 mg/dL (0.0-0.5) H 11/15/16 04:50 AST 52 Units/L (5-34) H 11/15/16 04:50 Alkaline Phosphatase 530 Units/L (38-126) H 11/15/16 04:50 B-Natriuretic Peptide 167 pg/mL (0-100) H 11/18/16 05:14 Albumin 2.2 g/dL (3.5-5.0) L 11/15/16 04:50 Globulin 5.1 g/dL (2.4-3.5) H 11/15/16 04:50 Albumin/Globulin Ratio 0.4 (1.1-2.2) L 11/15/16 04:50 Urine Clarity Cloudy (Clear) A 11/17/16 21:00 Urine Protein 30 mg/dL (Neg-Trace) H 11/17/16 21:00 Urine Glucose (UA) 100 mg/dL (Normal) H 11/17/16 21:00 Urine Blood Small (Negative) H 11/17/16 21:00 Urine Microscopic WBC 3-5 per hpf (0-3) H 11/17/16 21:00 Ur Squamous Epith Cells Many per lpf (None-Few) H 11/17/16 21:00 Vancomycin Peak 15.2 mcg/mL (20-40) L 11/24/16 06:33 Vancomycin Trough 25.5 mcg/mL (10-20) H* 11/21/16 21:31 Consult Discharge Plan - Plan Referrals: Jennifer Dias CNP [Advanced Practice Nurse] - Ismael France DPM [Partnered Physician] - Alena Salinas DO [Primary Care Provider] - Prescriptions: OxyCODONE Immed Rel [Roxicodone 5 MG] 10 mg PO Q6HR PRN #10 tablet PRN Reason: Moderate Pain (4-6) Diazepam [Valium] 5 mg PO TID #10 tablet
[2016-11-24] MEDS ORDERED: FLU VACC QS2016-17 36MOS UP/PF 0.5 ML SYRINGE IM ONE (16:30)
[2016-11-24 17:18] VITALS: BP 126/73
[2016-11-24] MEDS ORDERED: Aminoglycoside Consult 1 EACH MC ONE (18:21)
[2016-11-25] MEDS ORDERED: Fluconazole 100 MG TABLET PO SCH (09:00)
== END 2016-11-24 18:22 | DRG 720 ==
LOC: 2NENU 04:42 → EMEROO 04:42 → 2NENU 07:35 → SUATTDRO 08:36 → 2NENU 15:58
PROVIDERS: ADMIT Internal Medicine; ATTEND Internal Medicine

== ENCOUNTER 2017-01-12 09:25 | Observation (INO) ==
[2017-01-12] MEDS ORDERED: 0.9 % Sodium Chloride 1,000 ML IVC ONE (09:41)
--- NOTE | 2017-01-12 09:54 | Emergency Department Note ---
Disposition Clinical Impression: Cellulitis of leg, right Disposition: Admitted As Inpatient Referrals: NO,PCP [Primary Care Provider] - Forms: ED Satisfaction Letter Extremity Problem HPI - General Chief complaint: ED Extremity Problem,Nontraumatic Stated complaint: Right Leg Pain/Swelling Source: patient, EMS Limitations: no limitations Nursing Notes Reviewed: Yes Vital Signs Reviewed: Yes - History of Present Illness Pt Subjective Complaint: extremity swelling, joint paint Onset (ago): day(s) Consistency: constant Injury Location: right, lower extremity Pain Scale: 10 Quality: aching Radiation: none Improves with: elevation Worsens with: weight bearing Associated symptoms: Reports: swelling, redness. Denies: chest pain, shortness of breath, fever Context: other (Patient scraped his leg 3-4 days ago developed redness swelling and pain) - Related Data Home Medications Medication Instructions Recorded Confirmed metFORMIN [Glucophage] 1,000 mg PO BIDWM 08/01/15 11/15/16 Furosemide [Lasix] 20 mg PO BID 12/17/15 11/15/16 Amitriptyline HCl 100 mg PO HS 11/09/16 11/15/16 Benztropine Mesylate 2 mg PO BID 11/09/16 11/15/16 Lisinopril 2.5 mg PO DAILY 11/09/16 11/15/16 Potassium Chloride [K-Tab ER] 10 meq PO BID 11/09/16 11/15/16 Simvastatin [Zocor] 20 mg PO HS 11/09/16 11/15/16 hydrOXYzine pamoate [HydrOXYzine 25 mg PO BID PRN 11/09/16 11/15/16 Pamoate] Gabapentin [Neurontin] 1,600 mg PO BID 11/12/16 11/15/16 Gabapentin [Neurontin] 400 mg PO 1300 11/12/16 11/15/16 Pantoprazole Sodium [Protonix] 40 mg PO DAILY 11/12/16 11/15/16 Previous Rx's Medication Instructions Recorded Metoprolol XL (24 HR) Succ [Toprol 25 mg PO DAILY #30 tab.er.24h 11/14/16 Xl] OXcarbazepine [Oxcarbazepine] 300 mg PO BID #60 tablet 11/14/16 diazePAM [Valium] 5 mg PO TID #30 tablet 11/14/16 OxyCODONE Immed Rel [Roxicodone 5 10 mg PO Q6HR PRN #10 tablet 11/24/16 MG] diazePAM [Valium] 5 mg PO TID #10 tablet 11/24/16 Allergies Allergy/AdvReac Type Severity Reaction Status Date / Time aspirin Allergy Rash Verified 10/22/16 20:35 codeine Allergy Rash Verified 10/22/16 20:35 iodine Allergy See Verified 10/22/16 20:35 Comments All systems ED: reviewed and negative except as stated. Constitutional: Denies: fever, chills Respiratory: Denies: cough, wheezes Gastrointestinal: Denies: nausea, vomiting Past Medical History - Past Medical History Source: patient, old records reviewed, nursing notes reviewed Medical history: Reports: arthritis, COPD, diabetes, hyperlipidemia, hypertension, osteoporosis, renal disease, venous stasis, other Surgical history: Reports: appendectomy, cataract, other Psychiatric history: Reports: anxiety, bipolar, depression, PTSD, schizophrenia - Social History Smoking Status: Current every day smoker Smokeless Tobacco Status: No Alcohol use: Reports: none Drug use: Reports: none Physical Exam - General Limitations: other (patient slurring his words he states he took Percocet and Valium this morning because he was stressed) - Eye Eye exam: Present: normal appearance, PERRL, EOMI - ENT ENT exam: normal exam, normal oropharynx, mucous membranes moist - Neck Neck exam: Present: normal inspection, full ROM, trachea midline - Chest Chest inspection: Present: normal inspection, symmetric chest wall rise - Respiratory Respiratory exam: Present: normal lung sounds bilaterally - Cardiovascular Cardiovascular exam: Present: regular rate, normal rhythm, normal heart sounds - Abdominal Exam Abdominal exam: Present: soft, Non-Tender. Absent: tenderness, distention, guarding, rebound, rigidity - Expanded Lower Extremity Exam Lower leg exam: Present: other (Patient has erythema and swelling to right lower extremity with several abrasions and also a lesion on the medial right great toe) - Neurological Exam Neurological exam: Present: alert, oriented X3 - Psychiatric Psychiatric exam: Present: normal affect Course Vital Signs Temperature 98.6 F 01/12/17 09:28 Pulse Rate 105 01/12/17 09:28 Respiratory Rate 18 01/12/17 09:28 Blood Pressure 117/77 01/12/17 09:28 O2 Sat by Pulse Oximetry 97 01/12/17 09:28 Temperature 98.6 F 01/12/17 09:28 Pulse Rate 94 01/12/17 10:28 Respiratory Rate 16 01/12/17 10:28 Blood Pressure 117/77 01/12/17 10:28 O2 Sat by Pulse Oximetry 96 01/12/17 10:28 Oxygen Delivery Oxygen Delivery Room Air Extremity Problem, Nontraumati - Differential Diagnosis Likely: cellulitis, superficial thrombophlebitis, deep venous thrombosis, lower extremity edema, septic joint - Medical Records Medical records reviewed: Yes I reviewed the patient's medical records. - Lab Data Lab results reviewed: Yes I reviewed the patient's lab results. Result diagrams: 01/12/17 09:45 01/12/17 09:45 Lab Results 01/12/17 01/12/17 01/12/17 Range/Units 09:45 09:45 09:45 WBC 9.2 (4.3-11.1) K/mcL RBC 4.09 L (4.19-5.50) M/mcL Hgb 11.4 L (12.9-16.9) g/dL Hct 35.6 L (37.5-50.1) % MCV 87.0 (83.0-100.0) fL MCH 27.9 L (28.0-33.3) pg MCHC 32.0 (31.6-35.5) g/dL RDW 15.6 H (11.5-14.5) % Plt Count 291 (140-400) K/mcL MPV 9.6 (9.4-12.4) fL Seg Neutrophils % 47.0 % Lymphocytes % 41.0 % Monocytes % 8.0 % Eosinophils % 4.0 % Neutrophils # 4.3 (1.6-8.9) K/mcL Lymphocytes # 3.8 (0.6-4.6) K/mcL Monocytes # 0.7 (0.0-1.3) K/mcL Eosinophils # 0.4 (0.0-0.6) K/mcL Reactive Lymphocytes Present A (Not Present) Platelet Estimate Normal (Normal) ESR (0-10) mm/hr PT 11.6 (9.4-12.1) Seconds INR 1.1 APTT 31.0 (26.0-36.0) Seconds Sodium 138 (136-145) mEq/L Potassium 4.3 (3.5-4.5) mEq/L Chloride 98 (98-109) mEq/L Carbon Dioxide 28 (19-29) mEq/L BUN 13 (8-26) mg/dL Creatinine 1.11 (0.72-1.25) mg/dL Est GFR ( Amer) > 60 (> 60) Est GFR (Non-Af Amer) > 60 (> 60) BUN/Creatinine Ratio 12 (6-26) Glucose 305 H (70-99) mg/dL Est Mean Plasma Glucose mg/dl Hemoglobin A1c ( - 5.6) % Calculated Osmolality 298 (280-300) Lactic Acid (0.5-2.2) mmol/L Calcium 9.5 (8.6-10.8) mg/dL Magnesium 1.0 L (1.6-2.6) mg/dL Total Bilirubin 0.5 (0.2-1.2) mg/dL Direct Bilirubin 0.3 (0.0-0.5) mg/dL Indirect Bilirubin 0.2 (0.0-1.2) mg/dL AST 24 (5-34) Units/L ALT 30 (0-55) Units/L Alkaline Phosphatase 292 H (38-126) Units/L Serum Total Protein 7.4 (6.0-8.3) g/dL Albumin 3.4 L (3.5-5.0) g/dL Globulin 4.0 H (2.4-3.5) g/dL Albumin/Globulin Ratio 0.9 L (1.1-2.2) 01/12/17 01/12/17 01/12/17 Range/Units 09:45 09:45 09:45 WBC (4.3-11.1) K/mcL RBC (4.19-5.50) M/mcL Hgb (12.9-16.9) g/dL Hct (37.5-50.1) % MCV (83.0-100.0) fL MCH (28.0-33.3) pg MCHC (31.6-35.5) g/dL RDW (11.5-14.5) % Plt Count (140-400) K/mcL MPV (9.4-12.4) fL Seg Neutrophils % % Lymphocytes % % Monocytes % % Eosinophils % % Neutrophils # (1.6-8.9) K/mcL Lymphocytes # (0.6-4.6) K/mcL Monocytes # (0.0-1.3) K/mcL Eosinophils # (0.0-0.6) K/mcL Reactive Lymphocytes (Not Present) Platelet Estimate (Normal) ESR 126 H (0-10) mm/hr PT (9.4-12.1) Seconds INR APTT (26.0-36.0) Seconds Sodium (136-145) mEq/L Potassium (3.5-4.5) mEq/L Chloride (98-109) mEq/L Carbon Dioxide (19-29) mEq/L BUN (8-26) mg/dL Creatinine (0.72-1.25) mg/dL Est GFR ( Amer) (> 60) Est GFR (Non-Af Amer) (> 60) BUN/Creatinine Ratio (6-26) Glucose (70-99) mg/dL Est Mean Plasma Glucose 177 mg/dl Hemoglobin A1c 7.8 H ( - 5.6) % Calculated Osmolality (280-300) Lactic Acid 2.0 (0.5-2.2) mmol/L Calcium (8.6-10.8) mg/dL Magnesium (1.6-2.6) mg/dL Total Bilirubin (0.2-1.2) mg/dL Direct Bilirubin (0.0-0.5) mg/dL Indirect Bilirubin (0.0-1.2) mg/dL AST (5-34) Units/L ALT (0-55) Units/L Alkaline Phosphatase (38-126) Units/L Serum Total Protein (6.0-8.3) g/dL Albumin (3.5-5.0) g/dL Globulin (2.4-3.5) g/dL Albumin/Globulin Ratio (1.1-2.2) - Radiology Data Radiology results reviewed: Yes I reviewed the patient's radiology results.
[2017-01-12 09:57] LABS: Eosinophils # 0.4 K/mcL (0.0-0.6); Hematocrit 35.6 % (37.5-50.1); Hemoglobin 11.4 g/dL (12.9-16.9); Mean Corpuscular Hemoglobin 27.9 pg (28.0-33.3); Mean Platelet Volume 9.6 fL (9.4-12.4); Platelet Count 291 K/mcL (140-400); Red Blood Count 4.09 M/mcL (4.19-5.50); Red Cell Distribution Width 15.6 % (11.5-14.5)
[2017-01-12 10:02] LABS: INR 1.1; Prothrombin Time 11.6 Seconds (9.4-12.1)
[2017-01-12 10:14] LABS: Alanine Aminotransferase 30 Units/L (0-55); Albumin 3.4 g/dL (3.5-5.0); Albumin/Globulin Ratio 0.9 (1.1-2.2); Alkaline Phosphatase 292 Units/L (38-126); Aspartate Amino Transferase 24 Units/L (5-34); BUN/Creatinine Ratio 12 (6-26); Bilirubin,Direct 0.3 mg/dL (0.0-0.5); Bilirubin,Indirect 0.2 mg/dL (0.0-1.2); Bilirubin,Total 0.5 mg/dL (0.2-1.2); Blood Urea Nitrogen 13 mg/dL (8-26); Calcium 9.5 mg/dL (8.6-10.8); Carbon Dioxide 28 mEq/L (19-29); Chloride 98 mEq/L (98-109); Glucose 305 mg/dL (70-99); Osmolality,Calculated 298 (280-300); Potassium 4.3 mEq/L (3.5-4.5); Sodium 138 mEq/L (136-145); Total Protein 7.4 g/dL (6.0-8.3); eGFR For African Americans > 60 (> 60); eGFR For Non-African Americans > 60 (> 60)
[2017-01-12 10:15] LABS: Lymphocytes # 3.8 K/mcL (0.6-4.6); Monocytes # 0.7 K/mcL (0.0-1.3); Neutrophils # 4.3 K/mcL (1.6-8.9); Reactive Lymphocytes Present (Not Present)
[2017-01-12 10:16] LABS: Platelet Estimate Normal (Normal)
[2017-01-12 10:19] LABS: Hemoglobin A1C 7.8 %
[2017-01-12] MEDS ORDERED: Piperacillin/Tazobactam 3.375 GM in D5% in Water (Mini-Bag+) 100 ML IVPB ONE (10:51)
[2017-01-12] MEDS ORDERED: Vancomycin 2,000 MG in D5% in Water 250 ML IVPB ONE (10:51)
[2017-01-12] MEDS ORDERED: Insulin LISPRO 300 UNITS/3 ML VIAL SQ STA (11:07)
[2017-01-12] MEDS ORDERED: Vancomycin 2,000 MG in D5% in Water 500 ML IVPB ONE (12:00)
[2017-01-12] MEDS ORDERED: Naloxone 0.4 MG/ML INJ IVP PRN (13:11)
[2017-01-12] MEDS ORDERED: Acetaminophen 325 MG TABLET PO PRN (13:11)
[2017-01-12] MEDS ORDERED: Magnesium Sulfate 1 GM in D5% in Water 100 ML IVPB ONE (13:17)
[2017-01-12] MEDS ORDERED: D5% in Water 1,000 ML IVC PRN (13:23)
[2017-01-12] MEDS ORDERED: *HR* Dextrose 50 % in Water (Syg) 50 ML SYRINGE IVP PRN (13:23)
[2017-01-12] MEDS ORDERED: Dextrose Gel 15 GM PO PRN ×2 (13:23)
--- NOTE | 2017-01-12 13:58 | Event Note ---
Date of Encounter: 01/12/17 Time of Encounter: 13:55 Patient seen and examined with nurse practitioner. Agree with assessment plan. Acute right leg cellulitis. Vancomycin Zosyn. He has a chronic wound in the right great toe. X-ray will be performed to look for evidence of osteomyelitis. He has element of diastolic CHF and will give IV Lasix 20 mg twice daily. wound and blood cultures. Podiatry consultation. Full code.
[2017-01-12] MEDS ORDERED: Vancomycin 2,000 MG in D5% in Water 250 ML IVPB SCH (14:00)
--- NOTE | 2017-01-12 14:15 | Internal Med History&Physical ---
Date of Encounter: 01/12/17 Time of Encounter: 14:12 Assessment and Plan (1) Cellulitis of leg, right Current visit: Yes Status: Acute Patient with chronic right great toe diabetic ulcer, and multiple previous hospitalizations for cellulitis. Today presents with pain and redness in right lower extremity consistent with cellulitis. Elevated ESR of 126. Blood cultures drawn and sent Initiated Vanc and zosyn Wound cultures ordered Consult to wound care Consult to Podiatry, Sessions called and will see patient. XRay of Right foot to evaluate for osteomyelitis (2) Hypomagnesemia Current visit: Yes Status: Acute Magnesium of 1.0. Will give 3gm IVPB. Recheck Mg with AM labs. 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 Diabetic diet Check blood sugars ACHS Sliding scale correction dose ACHS hypoglycemic protocol. Qualifiers: Diabetes mellitus continuous churn buttermaker insulin use: unspecified custodial insulin use status Qualified Code(s): E11.621 - Type 2 diabetes mellitus with foot ulcer; L97.509 - Non-pressure chronic ulcer of other part of unspecified foot with unspecified severity (4) Smoker Current visit: Yes Status: Acute Discussed smoking cessation, patient not ready to quit. Smoking cessation education ordered. nicotine patch. (5) Morbid obesity with BMI of 40.0-44.9, adult Current visit: No Status: Chronic (6) DVT prophylaxis Current visit: Yes Status: Acute up to chair BID Heparin 5000u SQ TID Internal Medicine - H&P: HPI Chief complaint: right leg pain Admitted From: Emergency Dept Plans for Post Hospital Care: Home History of present illness: Mr. Cormier is a 61 year old male with hypertension, hyperlipidemia, type 2 diabetes, chronic kidney disease, COPD, schizophrenia, IBS, bipolar disorder presented to the emergency department today with complaints of right lower extremity pain. Patient has a right great toe diabetic ulcer at least been dealing with for several months and has been hospitalized multiple times with cellulitis. He reports his right leg has had increasing pain and redness and tenderness over the last several days. He denies fever or chills but reports occasional sweats. He reports occasional lightheadedness. He denies any chest pain, palpitations, shortness of breath, nausea, vomiting, abdominal pain. He reports diarrhea consistent with his history of IBS. He reports numbness and tingling in his feet due to diabetic neuropathy but no worse than usual. Evaluation in the emergency department revealed elevated ESR of 126, hyperglycemia with blood sugar of 305. He had hypomagnesemia with magnesium of 1.0. On exam, patient was alert and oriented, in no acute distress. Heart had regular rate and rhythm, lungs had mild bilateral wheezes. His right lower extremity with erythematous, tender to palpation, and his right great toe had a medial ulcer, unstageable. Past Med Surg Social Fam HX - Past Medical History Medical history: arthritis, COPD, diabetes, hyperlipidemia, hypertension, osteoporosis, renal disease, venous stasis, other Psychiatric history: anxiety, bipolar, depression, PTSD, schizophrenia - Past Surgical History Surgical History: appendectomy, arthroscopy, cataract, other (left great toe amputation) - Social History Smoking Status: Current every day smoker Smokeless Tobacco Status: No Alcohol use: occasionally Drug use: marijuana - Family History Mother History Unknown: Yes Living Status: Cause of : SI Father History Unknown: Yes Living Status: Internal Medicine - H&P: Meds metFORMIN [Glucophage] 1,000 mg PO BIDWM 08/01/15 [History] Furosemide [Lasix] 20 mg PO BID 12/17/15 [History] Amitriptyline HCl 100 mg PO HS 11/09/16 [History] Benztropine Mesylate 2 mg PO BID 11/09/16 [History] Lisinopril 2.5 mg PO DAILY 11/09/16 [History] Potassium Chloride [K-Tab ER] 10 meq PO BID 11/09/16 [History] Simvastatin [Zocor] 20 mg PO HS 11/09/16 [History] Gabapentin [Neurontin] 1,600 mg PO BID 11/12/16 [History] Gabapentin [Neurontin] 800 mg PO 1300 11/12/16 [History] Pantoprazole Sodium [Protonix] 40 mg PO DAILY 11/12/16 [History] Metoprolol XL (24 HR) Succ [Toprol Xl] 25 mg PO DAILY #30 tab.er.24h 11/14/16 [ Rx] OXcarbazepine [Oxcarbazepine] 300 mg PO BID #60 tablet 11/14/16 [Rx] diazePAM [Valium] 5 mg PO TID #10 tablet 11/24/16 [Rx] Aripiprazole Lauroxil [Aristada] 882 mg IM Q4W 01/12/17 [History] GlipiZIDE XL (24 HR) [Glucotrol XL] 2.5 mg PO 0800 01/12/17 [History] Allergies aspirin Adverse Reaction (Verified 01/12/17 12:54) Rash codeine Adverse Reaction (Verified 01/12/17 12:54) Rash iodine Adverse Reaction (Verified 01/12/17 12:54) unknown All Systems PM: A 10-system review of systems was performed and is negative for pertinent findings except as documented above in the HPI. - Constitutional Constitutional: night sweats, no chills, no fever(s) - EENT Eyes: no change in vision, no discharge, no pain, no photophobia Ears: no ear discharge, no ear pain, no tinnitus Nose, mouth and throat: no dysphagia, no nasal discharge, no neck pain, no sore throat - Cardiovascular Cardiovascular ROS IM: lightheadedness, no chest pain, no diaphoresis, no dyspnea, no palpitations, no syncope - Respiratory Respiratory: no cough, no dyspnea, no wheezing, no excessive phlegm production - Gastrointestinal Gastrointestinal: no abdominal pain, no diarrhea, no hematemesis, no hematochezia, no melena, no nausea, no vomiting - Musculoskeletal Musculoskeletal ROS IM: no numbness, no tingling - Integumentary Integumentary IM: erythema (RLE), non-healing lesions, skin ulcer, no rash, no unusual bruising - Neurological Neurological ROS: numbness (chronic BLE), tingling (chronic BLE), no confusion, no convulsions, no focal weakness, no tremor(s) - Hematologic/Lymphatic Hematologic/Lymphatic: no easy bruising - Constitutional Vitals: Temp Pulse Resp BP Pulse Ox 97.6 F 97 16 128/79 96 01/12/17 12:48 01/12/17 12:48 01/12/17 12:48 01/12/17 12:48 01/12/17 12:48 General appearance: Present: A&O X 3, pleasant, no acute distress - Head Head exam: Present: atraumatic, normocephalic - Eye Eye exam: Present: PERRL, conjuntiva pink, sclera anicteric Pupils: Present: PERRL - Neck Neck exam general surgery: Present: supple, trachea midline. Absent: lymphadenopathy - Respiratory Respiratory exam: Present: wheezes. Absent: accessory muscle use, rales, rhonchi - Cardiovascular Cardiovascular exam: Present: RRR, +S1, +S2. Absent: diastolic murmur, gallop, rubs, systolic murmur - GI/Abdominal GI/Abdominal exam: Present: normal bowel sounds, soft, no peritoneal signs. Absent: distended, tenderness - Extremities Exam Extremities exam: Present: pedal edema (BLE), tenderness, warm, radial pulses palpable and symetrical. Absent: calf tenderness, cyanotic - Neurological Exam Neurological exam: Present: CN II-XII intact, oriented X3, no focal deficits. Absent: facial droop, speech deficit - Skin Skin exam: Present: dry, intact Internal Med - H&P Results - Labs CBC & Chem 7: 01/12/17 09:45 01/12/17 09:45 Labs: All Lab Results (24 Hours) 01/12/17 01/12/17 01/12/17 Range/Units 09:45 09:45 09:45 WBC 9.2 (4.3-11.1) K/mcL RBC 4.09 L (4.19-5.50) M/mcL Hgb 11.4 L (12.9-16.9) g/dL Hct 35.6 L (37.5-50.1) % MCV 87.0 (83.0-100.0) fL MCH 27.9 L (28.0-33.3) pg MCHC 32.0 (31.6-35.5) g/dL RDW 15.6 H (11.5-14.5) % Plt Count 291 (140-400) K/mcL MPV 9.6 (9.4-12.4) fL Seg Neutrophils % 47.0 % Lymphocytes % 41.0 % Monocytes % 8.0 % Eosinophils % 4.0 % Neutrophils # 4.3 (1.6-8.9) K/mcL Lymphocytes # 3.8 (0.6-4.6) K/mcL Monocytes # 0.7 (0.0-1.3) K/mcL Eosinophils # 0.4 (0.0-0.6) K/mcL Reactive Lymphocytes Present A (Not Present) Platelet Estimate Normal (Normal) ESR (0-10) mm/hr PT 11.6 (9.4-12.1) Seconds INR 1.1 APTT 31.0 (26.0-36.0) Seconds Sodium 138 (136-145) mEq/L Potassium 4.3 (3.5-4.5) mEq/L Chloride 98 (98-109) mEq/L Carbon Dioxide 28 (19-29) mEq/L BUN 13 (8-26) mg/dL Creatinine 1.11 (0.72-1.25) mg/dL Est GFR ( Amer) > 60 (> 60) Est GFR (Non-Af Amer) > 60 (> 60) BUN/Creatinine Ratio 12 (6-26) Glucose 305 H (70-99) mg/dL POC Glucose (58-89) Est Mean Plasma Glucose mg/dl Hemoglobin A1c ( - 5.6) % Calculated Osmolality 298 (280-300) Lactic Acid (0.5-2.2) mmol/L Calcium 9.5 (8.6-10.8) mg/dL Magnesium 1.0 L (1.6-2.6) mg/dL Total Bilirubin 0.5 (0.2-1.2) mg/dL Direct Bilirubin 0.3 (0.0-0.5) mg/dL Indirect Bilirubin 0.2 (0.0-1.2) mg/dL AST 24 (5-34) Units/L ALT 30 (0-55) Units/L Alkaline Phosphatase 292 H (38-126) Units/L Serum Total Protein 7.4 (6.0-8.3) g/dL Albumin 3.4 L (3.5-5.0) g/dL Globulin 4.0 H (2.4-3.5) g/dL Albumin/Globulin Ratio 0.9 L (1.1-2.2) 01/12/17 01/12/17 01/12/17 Range/Units 09:45 09:45 09:45 WBC (4.3-11.1) K/mcL RBC (4.19-5.50) M/mcL Hgb (12.9-16.9) g/dL Hct (37.5-50.1) % MCV (83.0-100.0) fL MCH (28.0-33.3) pg MCHC (31.6-35.5) g/dL RDW (11.5-14.5) % Plt Count (140-400) K/mcL MPV (9.4-12.4) fL Seg Neutrophils % % Lymphocytes % % Monocytes % % Eosinophils % % Neutrophils # (1.6-8.9) K/mcL Lymphocytes # (0.6-4.6) K/mcL Monocytes # (0.0-1.3) K/mcL Eosinophils # (0.0-0.6) K/mcL Reactive Lymphocytes (Not Present) Platelet Estimate (Normal) ESR 126 H (0-10) mm/hr PT (9.4-12.1) Seconds INR APTT (26.0-36.0) Seconds Sodium (136-145) mEq/L Potassium (3.5-4.5) mEq/L Chloride (98-109) mEq/L Carbon Dioxide (19-29) mEq/L BUN (8-26) mg/dL Creatinine (0.72-1.25) mg/dL Est GFR ( Amer) (> 60) Est GFR (Non-Af Amer) (> 60) BUN/Creatinine Ratio (6-26) Glucose (70-99) mg/dL POC Glucose (58-89) Est Mean Plasma Glucose 177 mg/dl Hemoglobin A1c 7.8 H ( - 5.6) % Calculated Osmolality (280-300) Lactic Acid 2.0 (0.5-2.2) mmol/L Calcium (8.6-10.8) mg/dL Magnesium (1.6-2.6) mg/dL Total Bilirubin (0.2-1.2) mg/dL Direct Bilirubin (0.0-0.5) mg/dL Indirect Bilirubin (0.0-1.2) mg/dL AST (5-34) Units/L ALT (0-55) Units/L Alkaline Phosphatase (38-126) Units/L Serum Total Protein (6.0-8.3) g/dL Albumin (3.5-5.0) g/dL Globulin (2.4-3.5) g/dL Albumin/Globulin Ratio (1.1-2.2) 01/12/17 01/12/17 Range/Units 12:05 12:51 WBC (4.3-11.1) K/mcL RBC (4.19-5.50) M/mcL Hgb (12.9-16.9) g/dL Hct (37.5-50.1) % MCV (83.0-100.0) fL MCH (28.0-33.3) pg MCHC (31.6-35.5) g/dL RDW (11.5-14.5) % Plt Count (140-400) K/mcL MPV (9.4-12.4) fL Seg Neutrophils % % Lymphocytes % % Monocytes % % Eosinophils % % Neutrophils # (1.6-8.9) K/mcL Lymphocytes # (0.6-4.6) K/mcL Monocytes # (0.0-1.3) K/mcL Eosinophils # (0.0-0.6) K/mcL Reactive Lymphocytes (Not Present) Platelet Estimate (Normal) ESR (0-10) mm/hr PT (9.4-12.1) Seconds INR APTT (26.0-36.0) Seconds Sodium (136-145) mEq/L Potassium (3.5-4.5) mEq/L Chloride (98-109) mEq/L Carbon Dioxide (19-29) mEq/L BUN (8-26) mg/dL Creatinine (0.72-1.25) mg/dL Est GFR ( Amer) (> 60) Est GFR (Non-Af Amer) (> 60) BUN/Creatinine Ratio (6-26) Glucose (70-99) mg/dL POC Glucose 292 H (58-89) Est Mean Plasma Glucose mg/dl Hemoglobin A1c ( - 5.6) % Calculated Osmolality (280-300) Lactic Acid 1.6 (0.5-2.2) mmol/L Calcium (8.6-10.8) mg/dL Magnesium (1.6-2.6) mg/dL Total Bilirubin (0.2-1.2) mg/dL Direct Bilirubin (0.0-0.5) mg/dL Indirect Bilirubin (0.0-1.2) mg/dL AST (5-34) Units/L ALT (0-55) Units/L Alkaline Phosphatase (38-126) Units/L Serum Total Protein (6.0-8.3) g/dL Albumin (3.5-5.0) g/dL Globulin (2.4-3.5) g/dL Albumin/Globulin Ratio (1.1-2.2) - Impressions ITS Impressions Chest X-Ray 01/12/17 12:43 IMPRESSION: No acute cardiopulmonary disease D/ / Marc Robert MD / Marc Robert MD Interpreting Provider: Marc Robert MD - Diagnostic Studies Chest x-ray Additional comments: Chest X-Ray 01/12/17 12:43
[2017-01-12] MEDS: *HR* HYDROcodone/Acet 5/325 mg TABLET PO PRN (14:36)
[2017-01-12] MEDS: diazePAM 5 MG TABLET PO SCH ×2 (14:36→20:23)
[2017-01-12] MEDS: *HR* Heparin 5,000 UNIT/ML VIAL SQ SCH ×2 (14:37→23:01)
[2017-01-12] MEDS ORDERED: Magnesium Sulfate 2 GM in D5% in Water 100 ML IVPB ONE (16:00)
--- NOTE | 2017-01-12 17:25 | Podiatry Consult Note ---
Date of Encounter: 01/12/17 Time of Encounter: 17:00 Assessment and Plan (1) Cellulitis of right lower leg Current visit: No Status: Acute Active debridement of hyperkeratosis to ulceration of medial aspect of MT head # 1 using #15 blade. Patient tolerated well, no complications Ulceration noted to be closed under callused skin No evidence of bone involvement per xray No warmth, erythema, drainage, edema or odor noted at this time Does not appear to be cause of cellulitis There are several scabbed venous ulcerations noted to RLE, likely cause of pain and cellulitis Continue IV antibiotics while inpatient - Zosyn and Vanc Wound cultures, blood cultures pending Home on oral as per internal med Will see in wound care clinic in 1 week with Keep area clean and covered Call with any issues, increase in pain, warmth, edema or drainage to foot or RLE Continue ordered dressings to RLE as per wound care (2) DM type 2 with diabetic peripheral neuropathy Current visit: No Status: Chronic History of Present Illness HPI: Mr. Cormier is a 61 year old male known to and wound care clinic. Hx of hypertension, hyperlipidemia, type 2 diabetes, chronic kidney disease, COPD, schizophrenia, IBS, bipolar disorder and chronic wounds. Patient was seen and treated in october for cellulitis of RLE and ulceration of medial aspect of MT head #1. Patient presented to ED with complaints of pain to RLE. Patient states everything was fine and then 2-3 days ago he started having pain to his leg. Patient denies any fevers, chills, n/v or flu like symptoms. Patient asleep on arrival to room. No dressing to foot. WBC 9.2 ESR 126. Patient rates pain 3/10 at this time. Past Med Surg Social Fam HX - Past Medical History Medical history: arthritis, COPD, diabetes, hyperlipidemia, hypertension, osteoporosis, renal disease, venous stasis, other Psychiatric history: anxiety, bipolar, depression, PTSD, schizophrenia - Past Surgical History Surgical History: appendectomy, arthroscopy, cataract, other (left great toe amputation) - Social History Smoking Status: Current every day smoker Smokeless Tobacco Status: No Alcohol use: occasionally Drug use: marijuana - Family History Mother History Unknown: Yes Living Status: Cause of : SI Father History Unknown: Yes Living Status: Medications and Allergies metFORMIN [Glucophage] 1,000 mg PO BIDWM 08/01/15 [History] Furosemide [Lasix] 20 mg PO BID 12/17/15 [History] Amitriptyline HCl 100 mg PO HS 11/09/16 [History] Benztropine Mesylate 2 mg PO BID 11/09/16 [History] Lisinopril 2.5 mg PO DAILY 11/09/16 [History] Potassium Chloride [K-Tab ER] 10 meq PO BID 11/09/16 [History] Simvastatin [Zocor] 20 mg PO HS 11/09/16 [History] Gabapentin [Neurontin] 1,600 mg PO BID 11/12/16 [History] Gabapentin [Neurontin] 800 mg PO 1300 11/12/16 [History] Pantoprazole Sodium [Protonix] 40 mg PO DAILY 11/12/16 [History] Metoprolol XL (24 HR) Succ [Toprol Xl] 25 mg PO DAILY #30 tab.er.24h 11/14/16 [ Rx] OXcarbazepine [Oxcarbazepine] 300 mg PO BID #60 tablet 11/14/16 [Rx] diazePAM [Valium] 5 mg PO TID #10 tablet 11/24/16 [Rx] Aripiprazole Lauroxil [Aristada] 882 mg IM Q4W 01/12/17 [History] GlipiZIDE XL (24 HR) [Glucotrol XL] 2.5 mg PO 0800 01/12/17 [History] Doxycycline 100 mg PO BID #20 capsule 01/13/17 [Rx] Allergies aspirin Adverse Reaction (Verified 01/12/17 12:54) Rash codeine Adverse Reaction (Verified 01/12/17 12:54) Rash iodine Adverse Reaction (Verified 01/12/17 12:54) unknown All Systems Reviewed: A 10-system review of systems was performed and is negative for pertinent findings except as documented above in the HPI. Physical Exam - Constitutional Vitals: Temp Pulse Resp BP Pulse Ox 97.6 F 97 16 128/79 96 01/12/17 12:48 01/12/17 12:48 01/12/17 12:48 01/12/17 12:48 01/12/17 12:48 Exam: General Examination: CONSTITUTIONAL: Alert, oriented, in no acute distress, non-toxic. EXTREMITIES: CFT 3 seconds all toes. Edema +1 and pedal pulses palpable. SKIN: Skin with decreased turgor, decreased subcutaneous tissue, skin thin and shiny with trophic changes associated with comorbidities as described in history.. NEUROLOGIC: Minimal sensation to light touch Muscle strength 5/5 and equal bilaterally Hyperkeratotic lesion is noted to medial aspect of MT head #1 right foot Area was debrided at bedside No open ulceration noted at this time No area of this ulceration is concerning of infection- no warmth, edema, odor, erythema, or drainage Tissue is soft and appears to be healing without issue Xray does not show evidence of osteo Several scabbed venous lesions are noted to RLE, mild erythema and edema to RLE tibial region consistent with mild cellulitis. Results - Labs Result Diagrams: 01/13/17 06:12 01/13/17 06:12 Labs: Abnormal lab results RBC 4.09 M/mcL (4.19-5.50) L 01/12/17 09:45 Hgb 11.4 g/dL (12.9-16.9) L 01/12/17 09:45 Hct 35.6 % (37.5-50.1) L 01/12/17 09:45 MCH 27.9 pg (28.0-33.3) L 01/12/17 09:45 RDW 15.6 % (11.5-14.5) H 01/12/17 09:45 Reactive Lymphocytes Present (Not Present) A 01/12/17 09:45 ESR 126 mm/hr (0-10) H 01/12/17 09:45 Glucose 305 mg/dL (70-99) H 01/12/17 09:45 POC Glucose 164 (58-89) H 01/12/17 16:39 Hemoglobin A1c 7.8 % (-5.6) H 01/12/17 09:45 Magnesium 1.0 mg/dL (1.6-2.6) L 01/12/17 09:45 Alkaline Phosphatase 292 Units/L (38-126) H 01/12/17 09:45 Albumin 3.4 g/dL (3.5-5.0) L 01/12/17 09:45 Globulin 4.0 g/dL (2.4-3.5) H 01/12/17 09:45 Albumin/Globulin Ratio 0.9 (1.1-2.2) L 01/12/17 09:45 All other labs normal. Consult Discharge Plan - Plan Referrals: Bo Paz DO [Resident] - 02/16/17 2:00 pm Prescriptions: Doxycycline 100 mg PO BID #20 capsule
[2017-01-12] MEDS: Furosemide 20 MG/2 ML VIAL IVP SCH (18:22)
[2017-01-12] MEDS: Piperacillin/Tazobactam 3.375 GM in D5% in Water (Mini-Bag+) 100 ML IVPB SCH (18:22)
[2017-01-12] MEDS: Insulin LISPRO 300 UNITS/3 ML VIAL SQ SCH (18:22)
[2017-01-12] MEDS: Gabapentin 400 MG CAPSULE PO SCH (20:22)
[2017-01-12] MEDS: OXcarbazepine 150 MG TABLET PO SCH (20:25)
[2017-01-12] MEDS ORDERED: Furosemide 20 MG TABLET PO SCH (21:00)
[2017-01-12] MEDS ORDERED: Insulin LISPRO 300 UNITS/3 ML VIAL SQ SCH (21:00)
[2017-01-12] MEDS ORDERED: Piperacillin/Tazobactam 3.375 GM in D5% in Water (Mini-Bag+) 100 ML IVPB SCH (21:00)
[2017-01-13] MEDS ORDERED: Vancomycin 2,000 MG in D5% in Water 500 ML IVPB SCH
[2017-01-13] MEDS: Piperacillin/Tazobactam 3.375 GM in D5% in Water (Mini-Bag+) 100 ML IVPB SCH ×2 (02:57→12:19)
[2017-01-13] MEDS: *HR* Heparin 5,000 UNIT/ML VIAL SQ SCH (06:22)
[2017-01-13 06:27] LABS: Basophils % 0.3 %; Eosinophils # 0.4 K/mcL (0.0-0.6); Eosinophils % 4.9 %; Hematocrit 34.6 % (37.5-50.1); Immature Granulocytes % 0.7 % (0-4); Immature Platelets 3.5 % (1.1-6.1); Lymphocytes # 3.3 K/mcL (0.6-4.6); Lymphocytes % 36.6 %; Mean Corpuscular HGB Conc 31.8 g/dL (31.6-35.5); Mean Corpuscular Hemoglobin 28.3 pg (28.0-33.3); Mean Corpuscular Volume 88.9 fL (83.0-100.0); Mean Platelet Volume 9.8 fL (9.4-12.4); Monocytes # 0.8 K/mcL (0.0-1.3); Monocytes % 8.9 %; Neutrophils # 4.3 K/mcL (1.6-8.9); Platelet Count 292 K/mcL (140-400); Red Blood Count 3.89 M/mcL (4.19-5.50); Red Cell Distribution Width 15.6 % (11.5-14.5); Segmented Neutrophils % 48.6 %
[2017-01-13 06:42] LABS: BUN/Creatinine Ratio 14 (6-26); Blood Urea Nitrogen 15 mg/dL (8-26); Calcium 9.2 mg/dL (8.6-10.8); Carbon Dioxide 31 mEq/L (19-29); Chloride 96 mEq/L (98-109); Glucose 381 mg/dL (70-99); Osmolality,Calculated 297 (280-300); Potassium 4.4 mEq/L (3.5-4.5); Sodium 135 mEq/L (136-145); eGFR For African Americans > 60 (> 60); eGFR For Non-African Americans > 60 (> 60)
[2017-01-13] MEDS: Insulin LISPRO 300 UNITS/3 ML VIAL SQ SCH ×2 (08:23→12:18)
[2017-01-13] MEDS: Furosemide 20 MG/2 ML VIAL IVP SCH (08:23)
[2017-01-13] MEDS: *HR* HYDROcodone/Acet 5/325 mg TABLET PO PRN (08:23)
[2017-01-13] MEDS: Gabapentin 400 MG CAPSULE PO SCH (08:24)
[2017-01-13] MEDS: diazePAM 5 MG TABLET PO SCH (08:24)
[2017-01-13] MEDS: OXcarbazepine 150 MG TABLET PO SCH (08:29)
[2017-01-13] MEDS ORDERED: Metoprolol XL (24 HR) Succ 25 MG TAB.ER.24H PO SCH (09:00)
[2017-01-13] MEDS ORDERED: Nicotine 21 MG PATCH.TD24 TD SCH (09:00)
[2017-01-13 12:00] VITALS: BP 112/72
[2017-01-13] MEDS ORDERED: Gabapentin 400 MG CAPSULE PO SCH (13:00)
--- NOTE | 2017-01-13 14:00 | Discharge Summary ---
Date of Encounter: 01/13/17 Time of Encounter: 09:30 - Discharge Diagnosis (1) Cellulitis of right lower leg Priority: Primary Status: Acute Comments: Seen by podiatry who surmised his cellulitis not likely to be related to his diabetic foot ulcer. Treated with vancomycin and Zosyn while admitted. With causation not likely to be diabetic ulcer, will send on Doxy (2) Diastolic heart failure Priority: Secondary Status: Chronic Comments: Patient had an echocardiogram 2 months ago that revealed preserved ejection fraction of 65% with indeterminate diastolic function. He is on diuretics at home, acute on chronic diastolic heart failure. Successfully diuresed during this admission. Qualifiers: Heart failure chronicity: acute on chronic Qualified Code(s): I50.33 - Acute on chronic diastolic (congestive) heart failure (3) Hyponatremia Priority: Primary Status: Acute Comments: Very mild, osmolality normal. (4) 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 Priority: Secondary Status: Chronic Comments: Seen by podiatry who surmised cellulitis not likely to be associated with his diabetic foot ulcers, follow-up outpatient with podiatry in 1 week. Qualifiers: Diabetes mellitus long term care administrator insulin use: unspecified detention insulin use status Qualified Code(s): E11.621 - Type 2 diabetes mellitus with foot ulcer; L97.509 - Non-pressure chronic ulcer of other part of unspecified foot with unspecified severity (5) DM type 2 with diabetic peripheral neuropathy Priority: Secondary Status: Chronic (6) Smoker Priority: Secondary Status: Chronic Comments: Declined smoking cessation counseling (7) Hypomagnesemia Priority: Primary Status: Acute Comments: Nearly resolved prior to discharge, follow-up outpatient. Potassium normal. (8) DVT prophylaxis Priority: Primary Status: Acute Comments: Subcutaneous heparin while admitted (9) Morbid obesity with BMI of 40.0-44.9, adult Priority: Secondary Status: Chronic (10) Noncompliance Priority: Secondary Status: Chronic - Discharge Medications Prescriptions: Doxycycline 100 mg PO BID #20 capsule Home Medications: metFORMIN [Glucophage] 1,000 mg PO BIDWM 08/01/15 [History] Furosemide [Lasix] 20 mg PO BID 12/17/15 [History] Amitriptyline HCl 100 mg PO HS 11/09/16 [History] Benztropine Mesylate 2 mg PO BID 11/09/16 [History] Lisinopril 2.5 mg PO DAILY 11/09/16 [History] Potassium Chloride [K-Tab ER] 10 meq PO BID 11/09/16 [History] Simvastatin [Zocor] 20 mg PO HS 11/09/16 [History] Gabapentin [Neurontin] 1,600 mg PO BID 11/12/16 [History] Gabapentin [Neurontin] 800 mg PO 1300 11/12/16 [History] Pantoprazole Sodium [Protonix] 40 mg PO DAILY 11/12/16 [History] Metoprolol XL (24 HR) Succ [Toprol Xl] 25 mg PO DAILY #30 tab.er.24h 11/14/16 [ Rx] OXcarbazepine [Oxcarbazepine] 300 mg PO BID #60 tablet 11/14/16 [Rx] diazePAM [Valium] 5 mg PO TID #10 tablet 11/24/16 [Rx] Aripiprazole Lauroxil [Aristada] 882 mg IM Q4W 01/12/17 [History] GlipiZIDE XL (24 HR) [Glucotrol XL] 2.5 mg PO 0800 01/12/17 [History] Doxycycline 100 mg PO BID #20 capsule 01/13/17 [Rx] Allergies/Adverse Reactions: Allergies aspirin Adverse Reaction (Verified 01/12/17 12:54) Rash codeine Adverse Reaction (Verified 01/12/17 12:54) Rash iodine Adverse Reaction (Verified 01/12/17 12:54) unknown Date of admission: 01/12/17 11:23 Primary care physician: PCP NO Consults: 01/12/17 13:27 Consult to Wound Care [CONS] Routine Reason for Consult: RLE cellulitis resulting from diabetic foot ulcer Call Completed: No 01/12/17 13:45 Consult to Podiatry [CONS] Routine Consulting Provider: [facility] Reason for Consult: right great toe ulcer, RLE cellulitis Call Completed: Yes 01/13/17 11:29 Consult to Supervisor Winter [CONS] Routine Reason for SW Consult: Pt lives in a detention with home health Discharging clinician: Marylin Lynch Anticipated date of discharge: 01/13/17 - Patient Status Disposition: Home Health Service Condition: Fair Functional capacity at discharge: independent ambulation Overall status at discharge: patient is progressing back to baseline - Discharge Instructions Follow Up With: Bo Paz DO [Resident] - 02/16/17 2:00 pm Podiatry [facility] [Provider Group] - Diet and Activity Activity: as per physical therapy, increase activity as tolerated Diet: diabetic diet, low fat, low cholesterol, low salt diet Hospital course: Mr. Cormier is a 61 year old male with past medical history of hypertension, hyperlipidemia, diabetes, chronic kidney disease, COPD, schizophrenia, bipolar disorder, IBS, morbid obesity. Patient presented to the emergency department chief complaint is right lower extremity pain. He has a diabetic ulcer on his right great toe that has been present for several months and he has had several hospitalizations with cellulitis. Patient stating his right leg increased in pain, redness, and tenderness over the past several days prior to presentation. Patient denied fever, chills but did endorse occasional sweats. Patient also endorsed occasional lightheadedness. He denied chest pain, palpitations, shortness of breath, nausea or vomiting or abdominal pain. Workup in the emergency department notable for elevated inflammatory markers and hyperglycemia as well as hypomagnesemia. Patient was admitted to the hospitalist service for further evaluation and management. Chest x-ray negative. Foot x-ray negative for signs of osteomyelitis. Podiatry was brought on board who surmised the patient's cellulitis was likely not related to diabetic foot ulcer. He was treated with vancomycin and Zosyn during this admission and area improved greatly. He was treated with insulin and his glucose is improved greatly on day of discharge. His A1c is 7.8% so he has relatively good control over his diabetes at home, likely hyperglycemic secondary to infection. His hypomagnesemia nearly resolved, potassium stayed normal. Podiatry cleared him for outpatient follow-up in one week with the wound clinic. Given that cellulitis is likely not due to diabetic foot ulcer, he was sent home on doxycycline. He was also educated lengthily importance of controlling his glucose while he has an infection. Briefly, the past several months of the patient's admissions: -04/02/16 presented to the emergency department for left lower extremity cellulitis discharged on Keflex and Willis. -05/14/16 presented to the emergency department right lower extremity cellulitis discharged on Bactrim and Willis -06/08/16 presented to the emergency department with a right toe injury discharged on Bactroban ointment and Bactrim and pain medications were refused at that time to be written due to multiple prescriptions. -07/11/16 seen in the wound clinic and noted to be noncompliant with daily dressing changes and noncompliant with his pressure offloading shoe that was prescribed. He was also supposed to follow up 2 weeks later but did not. -09/22/16 presented to the emergency department right lower extremity cellulitis discharged on clindamycin, Willis, and magnesium supplements. -10/22/16 presented to the emergency department with a left elbow injury and was discharged. -11/09/16 presented to the emergency department and diagnosed with right lower extremity cellulitis and a urinary tract infection and discharged on Bactrim to cover both infections. -11/11/16 he presented to the emergency department chief complaint of right lower extremity cellulitis and septic shock. He was admitted until 11/14/16 where he was discharged to a half-way on Augmentin as culture at that time grew strep C sensitive to penicillin. He was also discharged with Roxicodone, Valium, and metoprolol. -11/15/16, patient had been discharged from the half-way that day and presented as his home health aide stated that he had fever and altered mental status. He was this was a lengthy admission with septic shock and lower extremity cellulitis and he was then discharged on 11/24/16 and sent to a half-way at that time with IV vancomycin and cefepime as well as fluconazole. -That brings us to this admission that started on 01/12/17 with chief complaint of right lower extremity cellulitis. During this admission, he had no discharge noted from his wounds so culture was not obtained. He had no leukocytosis. Vital signs remained stable. No signs of sepsis or osteomyelitis. Patient during this admission was amenable to taking insulin indicating his glucose back down and at time of discharge, glucose had been brought down to the low 200s improved from the 500s upon presentation. On prior admissions, patient had refused insulin but he was willing to take it during this admission. In review of his chart, very concerned with lack of follow-up and noncompliance with treatment. behavioral services tech was brought on board and the patient currently resides in a detention and social welfare administrator has worked in an attempt to ensure better outpatient follow- up. He has home health services including nursing and physical therapy and these will be continued upon discharge. Thus far, the following antibiotics have been used (listed in order): Keflex, Bactrim, Bactroban ointment and Bactrim, clindamycin, Bactrim, Augmentin, IV vancomycin, IV cefepime, fluconazole. As podiatry surmises current round of synovitis is not likely related to his diabetic foot ulcer, will send him today on doxycycline. Will also continue magnesium supplements and have him follow up closely outpatient. He has been instructed on daily dressing changes and he has home health services in place. He is also been instructed to follow-up with podiatry/wound clinic in 1 week. He has also been instructed to follow-up with his primary care provider within one to 2 weeks. He was discharged home with continued home health services in stable condition with close outpatient follow-up strongly recommended. Of note, patient was not sent home on pain medication as according to his [facility] report he thought a prescription on 01/06/17 for 90 tablets of Endocet 10 mg. He also filled a prescription for gabapentin on . ITS Impressions Chest X-Ray 01/12/17 12:43 IMPRESSION: No acute cardiopulmonary disease D/ / Marc Robert MD / Marc Robert MD Interpreting Provider: Marc Robert MD Foot X-Ray 01/12/17 13:47 IMPRESSION: No radiographic signs of osteomyelitis. D/ / 01/12/2017 15:48:13 Debra Page MD / mikey Interpreting Provider: Debra Page MD - Time Spent with Patient Total time spent providing and/or coordinating discharge services: - Constitutional Vitals: Temp Pulse Resp BP Pulse Ox 98.0 F 87 16 112/72 95 01/13/17 11:59 01/13/17 11:59 01/13/17 11:59 01/13/17 11:59 01/13/17 11:59 General appearance: Present: A&O X 3, morbidly obese, no acute distress, answers questions appropriately - Head Head exam: Present: atraumatic, normocephalic - Eye Eye exam: Present: PERRL, conjuntiva pink, sclera anicteric Pupils: Present: PERRL - Neck Neck exam general surgery: Present: supple, trachea midline. Absent: lymphadenopathy - Respiratory Respiratory exam: Present: decreased breath sounds. Absent: accessory muscle use, rales, respiratory distress, rhonchi, wheezes - Cardiovascular Cardiovascular exam: Present: RRR, +S1, +S2. Absent: diastolic murmur, gallop, rubs, systolic murmur - GI/Abdominal GI/Abdominal exam: Present: distended, normal bowel sounds, soft, no peritoneal signs. Absent: tenderness - Extremities Exam Extremities exam: Present: pedal edema, warm, radial pulses palpable and symetrical. Absent: calf tenderness, cyanotic - Expanded Lower Extremities Exam Lower Leg exam: Present: erythema, swelling Ankle exam: Present: erythema, swelling Neuro vascular tendon exam: Present: decreased fine/light touch Gait: Present: antalgic - Neurological Exam Neurological exam: Present: alert, CN II-XII intact, oriented X3, no focal deficits, strengths equal and symetr throughout. Absent: pronater drift, facial droop, speech deficit - Skin Skin exam: Present: dry, intact, normal color, warm
--- NOTE | 2017-01-13 14:59 | Physician Discharge Referral ---
Home Health/Hosp Referral Info Transfer to: Home Health Attending Provider: Mercy Lynch CNP Provider in Charge Post Discharge: PCP - Diagnosis (1) Cellulitis of right lower leg Priority: Primary Status: Acute (2) Diastolic heart failure Priority: Secondary Status: Chronic (3) Hyponatremia Priority: Primary Status: Acute (4) 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 Priority: Secondary Status: Chronic (5) DM type 2 with diabetic peripheral neuropathy Priority: Secondary Status: Chronic (6) Smoker Priority: Secondary Status: Chronic (7) Hypomagnesemia Priority: Primary Status: Acute (8) DVT prophylaxis Priority: Primary Status: Acute (9) Morbid obesity with BMI of 40.0-44.9, adult Priority: Secondary Status: Chronic (10) Noncompliance Priority: Secondary Status: Chronic - Respiratory Orders Smoking Cessation: Smoking cessation has been advised. For more information, call the [place] Tobacco Quit Line at 1-179-ODRC-NOW. - Diet/Nutrition Diet/Nutrition Orders: No Added Salt (HAN), Cardiac, No Concentrated Sweets - Activity Activity Orders: Ambulate (per PT) - Services Needed Following services are medically necessary services: Nursing, Home Health Aide, Physical Therapy - Transfer Medications Prescriptions: Doxycycline 100 mg PO BID #20 capsule Home Medications: metFORMIN [Glucophage] 1,000 mg PO BIDWM 08/01/15 [History] Furosemide [Lasix] 20 mg PO BID 12/17/15 [History] Amitriptyline HCl 100 mg PO HS 11/09/16 [History] Benztropine Mesylate 2 mg PO BID 11/09/16 [History] Lisinopril 2.5 mg PO DAILY 11/09/16 [History] Potassium Chloride [K-Tab ER] 10 meq PO BID 11/09/16 [History] Simvastatin [Zocor] 20 mg PO HS 11/09/16 [History] Gabapentin [Neurontin] 1,600 mg PO BID 11/12/16 [History] Gabapentin [Neurontin] 800 mg PO 1300 11/12/16 [History] Pantoprazole Sodium [Protonix] 40 mg PO DAILY 11/12/16 [History] Metoprolol XL (24 HR) Succ [Toprol Xl] 25 mg PO DAILY #30 tab.er.24h 11/14/16 [ Rx] OXcarbazepine [Oxcarbazepine] 300 mg PO BID #60 tablet 11/14/16 [Rx] diazePAM [Valium] 5 mg PO TID #10 tablet 11/24/16 [Rx] Aripiprazole Lauroxil [Aristada] 882 mg IM Q4W 01/12/17 [History] GlipiZIDE XL (24 HR) [Glucotrol XL] 2.5 mg PO 0800 01/12/17 [History] Doxycycline 100 mg PO BID #20 capsule 01/13/17 [Rx] Allergies/Adverse Reactions: Allergies aspirin Adverse Reaction (Verified 01/12/17 12:54) Rash codeine Adverse Reaction (Verified 01/12/17 12:54) Rash iodine Adverse Reaction (Verified 01/12/17 12:54) unknown Certification: Further, I certify that my clinical findings support that this patient is homebound (i.e. absences from home require considerable and taxing effort and are for medical reasons or confucianism services or infrequently or short duration when for other reasons) because: Homebound Reason: Patient requires assistance of a person or device to safely leave home, Leaving home requires considerable and taxing effort due to condition Attestation: My signature below is to certify that this patient is under my care and that I, or nurse practitioner, or a physician's miller head assistant wet process working with me, has a face-to -face encounter with this patient.
[2017-01-13] MEDS ORDERED: Aminoglycoside Consult 1 EACH MC ONE (17:09)
[2017-01-13] MEDS ORDERED: Vancomycin 1,250 MG in D5% in Water 250 ML IVPB SCH (22:00)
== END 2017-01-13 17:10 | disposition home health service (06) ==
LOC: 3BNU 09:25 → EMEROO 09:25 → 3BNU 12:17
PROVIDERS: ADMIT Nurse Practitioner Family; ATTEND Nurse Practitioner Family